=== PATIENT | female | born 1935 | race Caucasian/White ===

== ENCOUNTER 2019-05-08 11:13 | Inpatient (IN) ==
[2019-05-08] MEDS ORDERED: IOPAMIDOL 100 ML BOTTLE IV ONE (11:14)
[2019-05-08] MEDS ORDERED: ONDANSETRON 4 MG/2 ML VIAL IV ONE (11:30)
[2019-05-08] MEDS ORDERED: 0.9 % SODIUM CHLORIDE 500 ML IV ONE (11:30)
[2019-05-08] MEDS ORDERED: HYDROmorphone 2 MG/ML VIAL IV PRN (11:30)
--- NOTE | 2019-05-08 11:35 | Emergency Department Note ---
Abdominal Pain HPI - General Chief Complaint: Abdominal Pain Stated Complaint: Left Lower Abd Pain Time Seen by Provider: 05/08/19 11:18 Source: patient Mode of arrival: ambulatory Limitations: no limitations - History of Present Illness HPI Narrative: 83-year-old [place] [facility] comes in complaining of a 2-week history of weakness and insidious onset left lower quadrant pain. She was initially seen by Sherrie Phillips PA-C over clinic and worked up with x-ray and labs on 05/02/2019. Marked leukocytosis of 18.6 is noted with normal x-ray. Labs were repeated on 05/06/2019-white count had risen to 21 and so she was sent here for reevaluation. She denies fever shortness of breath dysuria. She did have a stool this morning without melena or hematochezia. It was hard small. She took milk of magnesia as per her protocol-she usually has a delayed reaction to this and it has not kicked in yet. No leukemia or cancer history - Related Data Home Medications Medication Instructions Recorded Confirmed Acetaminophen [Tylenol] 1,000 mg PO TIDP PRN 04/15/15 05/02/19 clotrimazole 1 % topical cream 1 applic TOPICAL BID 04/04/17 05/02/19 magnesium hydroxide 400 mg/5 mL 15 ml PO QDAY PRN ml 04/04/17 05/02/19 oral suspension naproxen sodium 220 mg tablet See Rx Instructions PO Q12H 04/04/17 05/02/19 [id number] 250 2 tab PO ONCE PRN tab 05/13/18 05/02/19 mg-250 mg-65 mg tablet Previous Rx's Medication Instructions Recorded [id number]-[id number] 250 2 tab PO QDAY PRN #60 tab 11/14/17 mg-250 mg-65 mg tablet amitriptyline 50 mg tablet 50 mg PO HS #90 tab 11/08/18 levothyroxine 25 mcg tablet 25 mcg PO DAILY #90 tab 11/08/18 pantoprazole 40 mg tablet,delayed 40 mg PO DAILY #90 tab 11/08/18 release potassium chloride ER 10 mEq 10 meq PO DAILY #90 cap 11/08/18 capsule,extended release docusate calcium 240 mg capsule 240 mg PO QHS #90 cap 11/11/18 multivitamin tablet 1 tab PO DAILY #90 tab 11/22/18 oxybutynin chloride 5 mg tablet 5 mg PO BID #180 tab 11/22/18 gabapentin 100 mg capsule 100 mg PO .COMPLEX #150 cap 02/19/19 sumatriptan 50 mg tablet 50 mg PO Q2-4H PRN #160 tab 02/27/19 mirabegron ER 25 mg 25 mg PO QDAY #90 tab 04/07/19 tablet,extended release 24 hr hydrocodone 5 mg-acetaminophen 325 1 tab PO TID #90 tab 04/30/19 mg tablet Allergies Allergy/AdvReac Type Severity Reaction Status Date / Time ampicillin Allergy Severe Swelling Verified 05/02/19 13:41 of the Eye codeine Allergy Severe Unknown Verified 05/02/19 13:41 venom-honey bee Allergy Severe Anaphylaxis Verified 05/02/19 13:41 [bee venom (honey bee)] Penicillins Allergy Intermediate Rash Verified 05/02/19 13:41 metal Allergy Mild Hives Uncoded 05/02/19 13:41 Review of Systems All systems ED: reviewed and negative except as stated. Abdominal Pain PMH - Past Medical History Attestation: Yes: The following information was validated with the patient. [facility] Narrative: Family History (Last Reviewed 05/02/19 @ 13:44 by Sherrie Phillips PA-C) Mother Arthritis Dementia Diabetes Hypertension, essential Stroke Sister Arthritis Family/Other Arthritis Grandmother Hypertension, essential Grandfather Heart attack Medical History (Last Reviewed 05/02/19 @ 13:44 by Sherrie Phillips PA-C) OAB (overactive bladder) (Chronic) Stress incontinence (Chronic) Sciatica (Chronic) Spinal stenosis (Chronic) Constipation (Chronic) Esophageal reflux (Chronic) Hypertension, essential (Chronic) Carpal tunnel syndrome (Chronic) Low back pain (Chronic) Hypothyroidism (Chronic) Numbness of arm (Chronic) Hypokalemia (Chronic) Ataxic gait (Chronic) Tobacco use (Chronic) IBS (irritable bowel syndrome) (Chronic ~1954) Stomach ulcer (Chronic) Pancreatitis (Chronic) Osteoporosis (Chronic) Migraines (Chronic) Joint pain (Chronic) Insomnia (Chronic) Gallbladder problem (Chronic ~05/1958) Depression (Chronic) Muscle pain (Chronic) Arthritis (Chronic) Acid reflux (Chronic) Past Surgical History (Last Reviewed 05/02/19 @ 13:44 by Sherrie Phillips PA-C) H/O colonoscopy (Chronic 2010) H/O shoulder replacement (Chronic) History of cholecystectomy (Chronic) History of right ankle joint replacement (Chronic) Medical history: Reports: GERD, hypertension, hypothyroidism, osteoporosis, othe r (Spinal stenosis with sciatica, stress incontinence). Denies: cancer Surgical history ED: Reports: cholecystectomy, orthopedic, other (Bilateral shoulder replacement and 1 ankle replacement) - Social History Smoking status: Current every day smoker Physical Exam Thin female no acute distress. Very sharp mentally and able to give me a good history and background/review of systems. Normocephalic atraumatic. Conjunctive are clear sclerae white nonicteric. No nasal discharge or congestion. Oropharynx is pink and moist. Posterior pharynx clear. Neck is supple without lymphadenopathy or thyromegaly. Heart is regular rate and rhythm no murmur appreciated. Lungs are clear to auscultation bilaterally without wheezes rales rhonchi or respiratory distress. Abdomen is soft nontender nondistended except for the left lower quadrant which is markedly tender but no peritoneal signs or guarding. No pedal edema. Able to move around in the bed a little bit but overall globally weak. I do not see any focal deficits however; face is symmetrical, no dysarthria. Limitations: no limitations Course Vital Signs Temperature 97.2 F 05/08/19 11:13 Pulse Rate 87 05/08/19 11:13 Respiratory Rate 16 05/08/19 11:13 Blood Pressure 107/54 05/08/19 11:13 Pulse Oximetry (%) 95 05/08/19 11:13 Temperature 97.2 F 05/08/19 11:13 Pulse Rate 89 05/08/19 14:15 Respiratory Rate 26 H 05/08/19 14:37 Blood Pressure 113/67 05/08/19 14:37 Pulse Oximetry (%) 90 05/08/19 14:15 Abdominal Pain - Lab Data Lab results reviewed: Yes I reviewed the patient's lab results. Result diagrams: 05/08/19 11:47 05/08/19 11:46 Lab Results 05/08/19 05/08/19 05/08/19 Range/Units 11:46 11:46 11:47 WBC 18.9 H (4.5-11.0) K/mcL RBC 3.28 L (4.00-5.20) M/mcL Hgb 8.4 L (12.0-15.0) g/dL Hct 26.3 L (36.0-48.0) % POC Hct 26.0 L (36.0-48.0) % MCV 80.2 (80.0-100.0) fL MCH 25.6 L (26.0-34.0) pg MCHC 31.9 (31.0-36.0) g/dL RDW 17.3 H (11.5-14.5) % Plt Count 731 H (140-440) K/mcL MPV 6.8 L (7.4-10.4) fL Gran % 88.9 H (38.0-78.0) % Lymph % (Auto) 5.7 L (15.5-49.0) % Bond % (Auto) 5.1 (1.0-12.0) % Eos % (Auto) 0.1 (0.0-7.0) % Baso % (Auto) 0.2 (0.0-2.0) % Gran # 16.8 H (1.8-8.0) K/mcL Lymph # (Auto) 1.1 L (1.5-4.8) K/mcL Bond # (Auto) 1.0 H (0.1-0.9) K/mcL Eos # (Auto) 0 (0.0-0.7) K/mcL Baso # (Auto) 0 (0.0-0.3) K/mcL VBG Lactic Acid (0.5-2.0) mmol/L POC Sodium 134 (133-145) mmol/L Sodium 135 (133-145) mmol/L POC Potassium 4.6 (3.3-5.1) mmol/L Potassium 4.6 (3.3-5.1) mmol/L POC Chloride 96 (96-108) mmol/L Chloride 95 L (96-108) mmol/L Carbon Dioxide 29 (22-30) mmol/L POC Total CO2 29 (22-30) mmol/L Anion Gap 11.0 (8-16) POC BUN 28 H (8-23) mg/dl BUN 27 H (8-23) mg/dl Creatinine 0.6 (0.6-1.1) mg/dl POC Creatinine 0.7 (0.6-1.1) mg/dl GFR Calculation 85 Glucose 139 H (70-105) mg/dL POC Glucose 136 H (70-105) mg/dL Calcium 9.5 (8.6-10.4) mg/dl POC WB Ioniz Calcium 1.21 (1.16-1.32) mmol/L Total Bilirubin 0.2 (0.0-1.0) mg/dL AST 15 (0-37) U/l ALT 10 (0-40) U/l Alkaline Phosphatase 195 H (39-117) U/L Total Protein 6.7 (5.9-8.4) gm/dL Albumin 2.9 L (3.2-5.2) gm/dL Globulin 3.8 H (2.2-3.7) gm/dL Albumin/Globulin Ratio 0.8 L (1.0-2.3) Amylase 27 L (28-100) U/L Lipase 9 (7-60) U/L Procalcitonin 0.18 (<0.10) ng/mL 05/08/19 Range/Units 11:54 WBC (4.5-11.0) K/mcL RBC (4.00-5.20) M/mcL Hgb (12.0-15.0) g/dL Hct (36.0-48.0) % POC Hct (36.0-48.0) % MCV (80.0-100.0) fL MCH (26.0-34.0) pg MCHC (31.0-36.0) g/dL RDW (11.5-14.5) % Plt Count (140-440) K/mcL MPV (7.4-10.4) fL Gran % (38.0-78.0) % Lymph % (Auto) (15.5-49.0) % Bond % (Auto) (1.0-12.0) % Eos % (Auto) (0.0-7.0) % Baso % (Auto) (0.0-2.0) % Gran # (1.8-8.0) K/mcL Lymph # (Auto) (1.5-4.8) K/mcL Bond # (Auto) (0.1-0.9) K/mcL Eos # (Auto) (0.0-0.7) K/mcL Baso # (Auto) (0.0-0.3) K/mcL VBG Lactic Acid 1.7 (0.5-2.0) mmol/L POC Sodium (133-145) mmol/L Sodium (133-145) mmol/L POC Potassium (3.3-5.1) mmol/L Potassium (3.3-5.1) mmol/L POC Chloride (96-108) mmol/L Chloride (96-108) mmol/L Carbon Dioxide (22-30) mmol/L POC Total CO2 (22-30) mmol/L Anion Gap (8-16) POC BUN (8-23) mg/dl BUN (8-23) mg/dl Creatinine (0.6-1.1) mg/dl POC Creatinine (0.6-1.1) mg/dl GFR Calculation Glucose (70-105) mg/dL POC Glucose (70-105) mg/dL Calcium (8.6-10.4) mg/dl POC WB Ioniz Calcium (1.16-1.32) mmol/L Total Bilirubin (0.0-1.0) mg/dL AST (0-37) U/l ALT (0-40) U/l Alkaline Phosphatase (39-117) U/L Total Protein (5.9-8.4) gm/dL Albumin (3.2-5.2) gm/dL Globulin (2.2-3.7) gm/dL Albumin/Globulin Ratio (1.0-2.3) Amylase (28-100) U/L Lipase (7-60) U/L Procalcitonin (<0.10) ng/mL - Radiology Data Radiology results reviewed: Yes I reviewed the patient's radiology results. CT scan shows sigmoid diverticulitis with 2 small abscesses. Disposition Pt seen by DIRECTOR OF MATERIALS MANAGEMENT/PA only: No Clinical Impression: Diverticulitis Summary: Ordered work-up with laboratory and CT scan. Pain nausea medicine if she needs it. Small amount of IV fluid CT scan showed diverticulitis with 2 abscesses one about 9 cm 1 about 5 cm. Discussed situation with Dr. Sly Cuellar general surgeon and Dr. Birch, hospitalist. Dr. Birch will admit the patient and Dr. Cuellar will consult. Start blood cultures and give a dose of Zosyn. Dr. Cuellar reviewed the CT scan and advised me the patient will likely require surgery for drainage. He will discuss the case with Dr. Birch Disposition: Xfer As Inpt ([facility]) Condition: Fair Referrals: Martin Stokes DO [Primary Care Provider] -
[2019-05-08 11:51] LABS: POC Blood Urea Nitrogen 28 mg/dl (8-23); POC CO2 29 mmol/L (22-30); POC Calcium, Ionized 1.21 mmol/L (1.16-1.32); POC Chloride 96 mmol/L (96-108); POC Creatinine 0.7 mg/dl (0.6-1.1); POC Glucose, Random 136 mg/dL (70-105); POC Potassium 4.6 mmol/L (3.3-5.1); POC Sodium 134 mmol/L (133-145)
[2019-05-08 12:28] LABS: Basophils # (Auto) 0 K/mcL (0.0-0.3); Basophils % (Auto) 0.2 % (0.0-2.0); Eosinophils # (Auto) 0 K/mcL (0.0-0.7); Eosinophils % (Auto) 0.1 % (0.0-7.0); Granulocytes % (Auto) 88.9 % (38.0-78.0); Hematocrit 26.3 % (36.0-48.0); Hemoglobin 8.4 g/dL (12.0-15.0); Lymphocytes # (Auto) 1.1 K/mcL (1.5-4.8); Lymphocytes % (Auto) 5.7 % (15.5-49.0); Mean Cell Volume 80.2 fL (80.0-100.0); Mean Corpuscular HGB Conc 31.9 g/dL (31.0-36.0); Mean Platelet Volume 6.8 fL (7.4-10.4); Monocytes % (Auto) 5.1 % (1.0-12.0); Platelet Count 731 K/mcL (140-440); RBC 3.28 M/mcL (4.00-5.20); Red Cell Distribution Width 17.3 % (11.5-14.5); WBC 18.9 K/mcL (4.5-11.0)
[2019-05-08 12:48] LABS: ALT/SGPT 10 U/l (0-40); AST/SGOT 15 U/l (0-37); Albumin 2.9 gm/dL (3.2-5.2); Albumin/Globulin Ratio 0.8 (1.0-2.3); Alkaline Phosphatase 195 U/L (39-117); Amylase 27 U/L (28-100); Bilirubin,Total 0.2 mg/dL (0.0-1.0); Blood Urea Nitrogen 27 mg/dl (8-23); Calcium 9.5 mg/dl (8.6-10.4); Carbon Dioxide 29 mmol/L (22-30); Chloride 95 mmol/L (96-108); Globulin 3.8 gm/dL (2.2-3.7); Glomerular Filtration Rate 85; Glucose 139 mg/dL (70-105)
--- NOTE | 2019-05-08 14:14 | Cat Scan Report ---
CLINICAL INFORMATION: Left lower quadrant pain and elevated white blood cell count COMPARISON: None. TECHNIQUE: Following enteric contrast, 80 cc of Isovue-370 were injected intravenously, and 60 seconds later, 0.625 mm helical slices were obtained from the mid heart through the subtrochanteric regions. Following reconstruction, 2.5 mm sagittal, coronal and axial reformatted images were processed and reviewed at bone, lung and soft tissue windows. Five minutes later, 0.625 mm helical slices were obtained from the mid heart through the kidneys and viewed at soft tissue windows.The exam was performed using radiation dose optimization techniques including, but not limited to, automated exposure control, adjustment of the mA and/or kV according to patient size and use of iterative reconstruction technique. FINDINGS: Lung bases show tubular bronchiectasis involving segmental and subsegmental bronchi of the lower lobes with moderate patchy mixed interstitial/alveolar infiltrates in both posterior lower lobes. Tiny bilateral pleural effusions noted. The heart is markedly enlarged and very heavy mitral annular calcification and calcification aortic and mitral valve. Abdominal images show mild fatty change of the liver. No focal hepatic lesions. The gallbladder is surgically absent. There is moderate dilatation of the intrahepatic, common hepatic and common bile ducts: The common bile duct is 9 mm. Moderate are noted in the nondependent left hepatic ducts suggesting prior papillotomy. The pancreatic duct is also moderately dilated - 5 mm. 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 The pancreas, both kidneys, adrenal glands, spleen are normal. The aorta is normal in diameter with heavy calcific plaque throughout the aorta. Pelvic images show moderate distention of the urinary bladder. Uterus is not identified and is presumably surgically absent. The stomach, small and large bowel show moderate symmetric dilation compatible with moderate ileus. Small amount of ascites is noted. There are multiple sigmoid diverticuli with wall thickening of sigmoid colon patible with diverticulitis. A 9 cm thick-walled abscess is noted in the mid right perisigmoid region with a 5 cm thick-walled abscess noted in the left mid perisigmoid region. Bone windows show severe degenerative changes in lumbar spine, but no focal osseous lesions IMPRESSION: 1. Moderate sigmoid diverticulitis. 9 cm abscess seen in the right mid perisigmoid region. 5 cm abscess is seen in the left mid perisigmoid region. 2. Moderate ileus with a small amount of ascites 3. Urinary bladder distention 4. Moderate dilatation of the common bile and pancreatic ducts ostensibly related to postcholecystectomy papillary stenosis. Air in the nondependent left hepatic ducts suggests prior papillotomy. 5. Tubular bronchiectasis the subsegmental and segmental bronchi of the lower lobes with patchy airspace either representing fibrosis or infiltrate. 6. Heavy mitral annular calcification. Mild cardiomegaly Interpreted and Authenticated by: Martin Healy 05/08/19
[2019-05-08] MEDS ORDERED: PIPERACILLIN SODIUM/TAZOBACTAM 3.375 GM in DEXTROSE 5% IN WATER 50 ML IV ONE (15:11)
--- NOTE | 2019-05-08 15:38 | Internal Med History&Physical ---
Medical - H&P: [facility] Patient information: Note initiated : 05/08/19 at 3:37 pm Service Date, if different from initiated Date: [] Patient: Melody Dong a 83 y/o F admitted on for Left Lower Abd Pain. Chief Complaint: [] Chief complaint: abdominal pain History of present illness: Ms. Dong is a 83 year old extremely frail looking female presented to the ER with progressive weakness along with lower abdominal pain that started started a few months ago. She continued to ignore her symptoms failing to realize the progression did not seek medical attention. Symptoms were associated with occasional nausea/abdominal distention and intermittent constipation. Pain is described as 4 out of 10 to 8 out of 10 cramping lower abdominal without radiation and without associated blood in stool or change in stool caliber. Patient was recently evaluate by her primary care physician. She was found to have an elevated white count. She was referred to the ER where initial work-up was consistent with sigmoid diverticulitis with perisigmoid abscess measuring 9 and 5 cm. White count 19,000 along with pyuria. Subsequently surgery was consulted. Patient was started on antibiotic after blood cultures were drawn. Hospitalist service was consulted to consider admission while patient will undergo surgical intervention in 24 hours. At the time of evaluation patient is alert and oriented. She was able to endorse history as above. She denies prior similar episodes or abdominal surgery or history of diverticulitis. She denies drenching sweats, shaking chills or fever but endorses fatigue lethargic and loss of appetite. She denies bloody stool. She denies associated weight loss Review of systems A 10 point review of system was performed and is negative except was discussed above Medical - H&P: [facility] Medical history: OAB (overactive bladder) (Chronic) Stress incontinence (Chronic) Sciatica (Chronic) Spinal stenosis (Chronic) Constipation (Chronic) Esophageal reflux (Chronic) Hypertension, essential (Chronic) Carpal tunnel syndrome (Chronic) Low back pain (Chronic) Hypothyroidism (Chronic) Numbness of arm (Chronic) Hypokalemia (Chronic) Ataxic gait (Chronic) Tobacco use (Chronic) IBS (irritable bowel syndrome) (Chronic ~1954) Stomach ulcer (Chronic) Pancreatitis (Chronic) Osteoporosis (Chronic) Migraines (Chronic) Joint pain (Chronic) Insomnia (Chronic) Gallbladder problem (Chronic ~05/1958) Removed Depression (Chronic) Muscle pain (Chronic) Arthritis (Chronic) Acid reflux (Chronic) Surgical History H/O colonoscopy (Chronic 2010) Parent H/O shoulder replacement (Chronic) History of cholecystectomy (Chronic) History of right ankle joint replacement (Chronic) Family History Mother Arthritis Dementia Diabetes Hypertension, essential Stroke Sister Arthritis Family/Other Arthritis Grandparent-maternal Grandmother Hypertension, essential Grandfather Heart attack Maternal Social History marital status: other: Children-1 smoking status: Current every day smoker tobacco type: cigarettes alcohol intake frequency: does not drink substance use type: does not use Medical - H&P: Meds Home Medications Medication Instructions Recorded Confirmed Type Acetaminophen [Tylenol] 500 mg PO TIDP PRN 04/15/15 05/08/19 History clotrimazole 1 % topical cream 1 applic TOPICAL BID 04/04/17 05/08/19 History magnesium hydroxide 400 mg/5 mL 15 ml PO QDAY PRN ml 04/04/17 05/08/19 History oral suspension naproxen sodium 220 mg tablet 1 - 2 tab PO Q12H 04/04/17 05/08/19 History qbacxki-dfeenjqacdwhj-ssodbinx 250 2 tab PO QDAY PRN #60 tab 11/14/17 05/08/19 Rx mg-250 mg-65 mg tablet docusate calcium 240 mg capsule 240 mg PO QHS #90 cap 11/11/18 05/08/19 Rx multivitamin tablet 1 tab PO DAILY #90 tab 11/22/18 05/08/19 Rx sumatriptan 50 mg tablet 50 mg PO Q2-4H PRN #160 tab 02/27/19 05/08/19 Rx hydrocodone 5 mg-acetaminophen 325 1 tab PO TID #90 tab 04/30/19 05/08/19 Rx mg tablet Amitriptyline [Elavil] 50 mg PO HS 05/08/19 05/08/19 History Gabapentin [Neurontin] 100 mg PO DAILY@08,1200 05/08/19 05/08/19 History Gabapentin [Neurontin] 300 mg PO HS 05/08/19 05/08/19 History Levothyroxine [Synthroid] 25 mcg PO ACB 05/08/19 05/08/19 History Mirabegron [Myrbetriq] 25 mg PO DAILY 05/08/19 05/08/19 History Pantoprazole [Protonix] 40 mg PO ACB 05/08/19 05/08/19 History Potassium Chloride 10 meq PO QAMCC 05/08/19 05/08/19 History Allergies Allergy/AdvReac Type Severity Reaction Status Date / Time ampicillin Allergy Severe Swelling Verified 05/08/19 19:57 of the Eye venom-honey bee Allergy Severe Anaphylaxis Verified 05/08/19 19:57 [bee venom (honey bee)] Penicillins Allergy Mild Rash Verified 05/08/19 19:57 metal Allergy Mild Hives Uncoded 05/02/19 13:41 Medical - H&P: Exam - Constitutional Vitals: Temp Pulse Resp BP Pulse Ox 97.2 F 89 26 H 113/67 90 05/08/19 11:13 05/08/19 14:15 05/08/19 14:37 05/08/19 14:37 05/08/19 14:15 General appearance: no acute distress Exam: Alert, anxious but oriented Head normocephalic Oral cavity dry No ear nose discharge S1-S2 regular rhythm systolic murmur grade 3 Chest diminished but clear to auscultation Abdomen tenderness around suprapubic area but no rebound Lower extremity no cyanosis clubbing no joint swelling Skin no suspicious lesion Psych alert cooperative Neuro nonfocal Medical - H&P: Reslt - Labs CBC & Chem 7: 05/09/19 03:40 05/09/19 03:40 Labs: Short CBC 05/08/19 Range/Units 11:47 WBC 18.9 H (4.5-11.0) K/mcL Hgb 8.4 L (12.0-15.0) g/dL Hct 26.3 L (36.0-48.0) % Plt Count 731 H (140-440) K/mcL BMP 05/08/19 11:46 Sodium 135 Potassium 4.6 Chloride 95 L Carbon Dioxide 29 BUN 27 H Creatinine 0.6 Glucose 139 H Calcium 9.5 Liver Function 05/08/19 Range/Units 11:46 Total Bilirubin 0.2 (0.0-1.0) mg/dL AST 15 (0-37) U/l ALT 10 (0-40) U/l Alkaline Phosphatase 195 H (39-117) U/L Albumin 2.9 L (3.2-5.2) gm/dL Medical - H&P: A/P (1) Sepsis Current visit: Yes Status: Acute * Perisigmoid abscess-patient started on antibiotic coverage. Surgery consulted and will undergo operative intervention in 24 hours. * Acute sigmoid diverticulitis-initiate antibiotic coverage. Surgery on board * Severe sepsis secondary to above. White count 19,000. Continue management per guidelines. Keep n.p.o. after midnight. Continue crystalloid/antibiotics including cefepime/Flagyl * Pain management on as needed opioids * Neuropathy continue gabapentin/amitriptyline * History of migraine continue sumatriptan as needed * Hypothyroidism continue thyroxine * Full code * Prophylaxis heparin Plan * Inpatient admission * Surgery consult * Keep n.p.o. after midnight * Crystalloid/pain management * Antibiotic coverage * Prior medical condition management on home medications as above
[2019-05-08] MEDS ORDERED: ceFAZolin 1 GM VIAL IV ONE (15:50)
[2019-05-08] MEDS ORDERED: ONDANSETRON 4 MG/2 ML VIAL IV PRN (18:42)
[2019-05-08] MEDS ORDERED: hydrALAZINE 20 MG/ML VIAL IV PRN (18:42)
[2019-05-08] MEDS ORDERED: POTASSIUM CHLORIDE 20 MEQ PACKET PO PRN (18:42)
[2019-05-08] MEDS ORDERED: PIPERACILLIN SODIUM/TAZOBACTAM 3.375 GM in DEXTROSE 5% IN WATER 50 ML IV SCH (18:42)
[2019-05-08] MEDS ORDERED: ACETAMINOPHEN 325 MG TABLET PO PRN (18:42)
[2019-05-08] MEDS ORDERED: DEXTROSE 31 GM ORAL.SUSP PO PRN (18:42)
[2019-05-08] MEDS ORDERED: MAGNESIUM SULFATE 2 GM/50 ML BAG IV PRN (18:42)
[2019-05-08] MEDS ORDERED: DEXTROSE 50% 50 ML VIAL IV PRN (18:42)
--- NOTE | 2019-05-08 18:47 | General Surgery Consult Note ---
History of Present Illness Patient information: Note initiated : 05/08/19 at 6:44 pm Service Date, if different from initiated Date: [] Patient: Melody Dong 83 y/o F admitted on 05/08/19 for Left Lower Abd Pain. Chief Complaint: [] Consult date: 05/08/19 Reason for consult: abdominal pain Requesting physician: Jhonathan Lynn History of present illness: 83-year-old female with history of left lower quadrant pain and suprapubic pain for many months. She has had a progressive change in bowel habits and worsening constipation. She does use chronic laxatives without improvement. She has noted abdominal distention. She had increasing nausea and more severe pain with progressive weakness. She does have at least a 20 pound weight loss. Patient is seen in the emergency room where she is from to have evidence of inflammation of the sigmoid colon with abscesses with thick wall measuring 9 cm and 5 cm respectively. Patient has white count of 20,000 and has sepsis. She is admitted and will be treated with antibiotics. Baseline labs chest x-ray EKG will be done and she will have laparotomy tomorrow with drainage of the abscess probable sigmoid colon resection with colostomy. This is explained to the patient and she agrees to proceed Review of Systems - Constitutional chills, fatigue, headache(s), malaise, night sweats, weakness, weight loss - EENT Nose, mouth and throat: headache(s), vertigo, no dizziness, no dysphagia - Cardiovascular no chest pain with activity, no dyspnea on exertion, no lightheadedness, no palpatations, no pedal edema, no syncope - Respiratory no cough, no dyspnea, no wheezing, no chest congestion - Gastrointestinal abdominal pain, bloating, constipation, cramping, early satiety, nausea - Genitourinary Genitourinary: nocturia, urinary frequency, urinary hesitancy, urinary incontinence, urinary urgency - Musculoskeletal arthralgias, back pain - Integumentary no new lesions, no pruritus, no rash - Neurological abnormal gait, headache(s), tremor(s), no confusion, no dizziness - Psychiatric no anxiety, no confusion, no depression - Endocrine fatigue, no palpitations - Hematologic/Lymphatic no easy bleeding, no easy bruising, no lymphadenopathy - Allergic/Immunologic no tongue swelling, no throat swelling, no uticaria, no wheezing, no lip swelling Past History Past medical history: History of depression Chronic low back pain GERD Past surgical history: Bilateral shoulder replacement Cholecystectomy Right ankle arthroplasty Past family history: Dementia Hypertension Stroke Coronary artery disease with Past social history: Lives in a care facility Tobacco use daily Denies drug use Denies alcohol use Medications and Allergies Home Medications Medication Instructions Recorded Confirmed Type Acetaminophen [Tylenol] 500 mg PO TIDP PRN 04/15/15 05/08/19 History clotrimazole 1 % topical cream 1 applic TOPICAL BID 04/04/17 05/08/19 History magnesium hydroxide 400 mg/5 mL 15 ml PO QDAY PRN ml 04/04/17 05/08/19 History oral suspension naproxen sodium 220 mg tablet 1 - 2 tab PO Q12HP PRN 04/04/17 05/08/19 History uoobhff-vnmbksnppsxeu-jwjgbxpx 250 2 tab PO QDAY PRN #60 tab 11/14/17 05/08/19 Rx mg-250 mg-65 mg tablet docusate calcium 240 mg capsule 240 mg PO QHS #90 cap 11/11/18 05/08/19 Rx multivitamin tablet 1 tab PO DAILY #90 tab 11/22/18 05/08/19 Rx sumatriptan 50 mg tablet 50 mg PO Q2-4H PRN #160 tab 02/27/19 05/08/19 Rx hydrocodone 5 mg-acetaminophen 325 1 tab PO TID #90 tab 04/30/19 05/08/19 Rx mg tablet Amitriptyline [Elavil] 50 mg PO HS 05/08/19 05/08/19 History Gabapentin [Neurontin] 100 mg PO DAILY@08,1200 05/08/19 05/08/19 History Gabapentin [Neurontin] 300 mg PO HS 05/08/19 05/08/19 History Levothyroxine [Synthroid] 25 mcg PO ACB 05/08/19 05/08/19 History Mirabegron [Myrbetriq] 25 mg PO DAILY 05/08/19 05/08/19 History Pantoprazole [Protonix] 40 mg PO ACB 05/08/19 05/08/19 History Potassium Chloride 10 meq PO QAMCC 05/08/19 05/08/19 History Allergies Allergy/AdvReac Type Severity Reaction Status Date / Time ampicillin Allergy Severe Swelling Verified 05/02/19 13:41 of the Eye codeine Allergy Severe Unknown Verified 05/02/19 13:41 venom-honey bee Allergy Severe Anaphylaxis Verified 05/02/19 13:41 [bee venom (honey bee)] Penicillins Allergy Mild Rash Verified 05/08/19 16:41 metal Allergy Mild Hives Uncoded 05/02/19 13:41 Exam Temp Pulse Resp BP Pulse Ox 97.2 F 86 19 126/62 89 L 05/08/19 18:31 05/08/19 18:31 05/08/19 18:31 05/08/19 18:31 05/08/19 18:31 - General physical appearance well developed, well nourished, moderate distress, severe pain, cachectic, chronically ill - Eyes PERRL, normal ocular movement. negative: icteric - ENT normal pinna, normal nares, normal mucosa, no hearing loss, no congestion - Head Head exam IM: Present: atraumatic, normal inspection, normocephalic - Neck no masses, no bruits, trachea midline, no lymphadenopathy, no venous distension - Cardiovascular Cardiovascular exam IM: Present: normal rate and rhythm, +S1, +S2, systolic murmur. Absent: JVD, tachycardia Intensity IM: 4/6 (strong for over 6 systolic ejection murmur across precordium) - Respiratory normal expansion, normal respiratory effort, clear to auscultation - Abdomen Abdomen: Present: soft, tender (diffusely tender in the hypogastric and suprapubic area; no palpable mass; guarding with rebound), bowel sounds, distended Hernia: Present: none - Genitourinary Present: normal external genitalia - Integumentary Present: no rash, no growths, no abnormal pigmentation - Neurologic Present: normal coordination, normal sensation, other ( intention tremor) - Musculoskeletal Present: other ( gait and stance not evaluated) - Psychiatric Present: oriented to time, oriented to person, oriented to place, speech is normal, memory intact Results - Labs 05/08/19 11:47 05/08/19 11:46 Abnormal lab results 05/08/19 05/08/19 Range/Units 11:46 11:47 WBC 18.9 H (4.5-11.0) K/mcL RBC 3.28 L (4.00-5.20) M/mcL Hgb 8.4 L (12.0-15.0) g/dL Hct 26.3 L (36.0-48.0) % POC Hct 26.0 L (36.0-48.0) % MCH 25.6 L (26.0-34.0) pg RDW 17.3 H (11.5-14.5) % Plt Count 731 H (140-440) K/mcL MPV 6.8 L (7.4-10.4) fL Gran % 88.9 H (38.0-78.0) % Lymph % (Auto) 5.7 L (15.5-49.0) % Gran # 16.8 H (1.8-8.0) K/mcL Lymph # (Auto) 1.1 L (1.5-4.8) K/mcL [place] # (Auto) 1.0 H (0.1-0.9) K/mcL Chloride 95 L (96-108) mmol/L POC BUN 28 H (8-23) mg/dl BUN 27 H (8-23) mg/dl Glucose 139 H (70-105) mg/dL POC Glucose 136 H (70-105) mg/dL Alkaline Phosphatase 195 H (39-117) U/L Albumin 2.9 L (3.2-5.2) gm/dL Globulin 3.8 H (2.2-3.7) gm/dL Albumin/Globulin Ratio 0.8 L (1.0-2.3) Amylase 27 L (28-100) U/L Diabetes panel 05/08/19 Range/Units 11:46 Sodium 135 (133-145) mmol/L Potassium 4.6 (3.3-5.1) mmol/L Chloride 95 L (96-108) mmol/L Carbon Dioxide 29 (22-30) mmol/L BUN 27 H (8-23) mg/dl Creatinine 0.6 (0.6-1.1) mg/dl Glucose 139 H (70-105) mg/dL Calcium 9.5 (8.6-10.4) mg/dl AST 15 (0-37) U/l ALT 10 (0-40) U/l Alkaline Phosphatase 195 H (39-117) U/L Total Protein 6.7 (5.9-8.4) gm/dL Albumin 2.9 L (3.2-5.2) gm/dL Calcium panel 05/08/19 Range/Units 11:46 Calcium 9.5 (8.6-10.4) mg/dl Albumin 2.9 L (3.2-5.2) gm/dL Pituitary panel 05/08/19 Range/Units 11:46 Sodium 135 (133-145) mmol/L Potassium 4.6 (3.3-5.1) mmol/L Chloride 95 L (96-108) mmol/L Carbon Dioxide 29 (22-30) mmol/L BUN 27 H (8-23) mg/dl Creatinine 0.6 (0.6-1.1) mg/dl Glucose 139 H (70-105) mg/dL Calcium 9.5 (8.6-10.4) mg/dl Adrenal panel 05/08/19 Range/Units 11:46 Sodium 135 (133-145) mmol/L Potassium 4.6 (3.3-5.1) mmol/L Chloride 95 L (96-108) mmol/L Carbon Dioxide 29 (22-30) mmol/L BUN 27 H (8-23) mg/dl Creatinine 0.6 (0.6-1.1) mg/dl Glucose 139 H (70-105) mg/dL Calcium 9.5 (8.6-10.4) mg/dl Total Bilirubin 0.2 (0.0-1.0) mg/dL AST 15 (0-37) U/l ALT 10 (0-40) U/l Alkaline Phosphatase 195 H (39-117) U/L Total Protein 6.7 (5.9-8.4) gm/dL Albumin 2.9 L (3.2-5.2) gm/dL All other labs normal. Assessment and Plan (1) Acute abscess of female pelvis Patient has been started on antibiotics and has been counseled for laparotomy with probable segmental colectomy and drainage of pelvic abscess to be performed in the morning. She is advised that she will have a temporary colostomy placed. Status: Acute (2) Acute diverticulitis of intestine Status: Acute (3) Sepsis Status: Acute Qualifiers: Sepsis acute organ dysfunction status: with acute organ dysfunction Severe sepsis shock status: without septic shock
[2019-05-08] MEDS ORDERED: 0.9 % SODIUM CHLORIDE 250 ML IV SCH (19:00)
[2019-05-08] MEDS: 0.9 % SODIUM CHLORIDE 1,000 ML IV SCH (19:18)
[2019-05-08] MEDS: CEFEPIME 2 GM VIAL IV SCH (19:18)
--- NOTE | 2019-05-08 19:35 | XRay Report ---
CLINICAL INFORMATION: preop evaluation COMPARISON: None. FINDINGS: The heart is mildly enlarged. Mediastinum and pulmonary vessels are normal. Mild COPD changes appreciated no infiltrates or effusions IMPRESSION: Mild cardiomegaly and COPD changes. No acute disease Interpreted and Authenticated by: Martin Healy 05/08/19
[2019-05-08] MEDS: metroNIDAZOLE 500 MG/100 ML BAG IV SCH ×2 (20:08→23:55)
[2019-05-08] MEDS: 0.9 % SODIUM CHLORIDE 10 ML SYRINGE IV SCH (20:15)
[2019-05-08] MEDS ORDERED: HYDROmorphone 2 MG/ML VIAL ONE (20:19)
[2019-05-08] MEDS: HYDROmorphone 2 MG/ML VIAL IV PRN (20:20)
[2019-05-08] MEDS: INSULIN LISPRO 1 UNIT/0.01 ML UNIT SQ SCH ×2 (20:28→21:53)
[2019-05-08] MEDS ORDERED: HEPARIN 5,000 UNIT/ML VIAL SQ SCH (21:00)
[2019-05-08 22:37] LABS: Prothrombin Time 13.7 sec (11.9-14.5)
[2019-05-09 01:34] LABS: Appearance,Urine TURBID; Bacteria,Urine 0 /hpf (0); Bilirubin,Urine NEG (NEG); Color,Urine YELLOW; Culture Indicated,Urine YES; Glucose,Urine (UA) NEGATIVE (NEG); Ketones,Urine NEG (NEG); Leukocyte Esterase,Urine 250 /uL (NEG); Nitrate,Urine NEG (NEG); Protein,Urine >=500 mg/dL (NEG); Urine Blood >=1.0 mg/dL (<0.03); Urine RBC > 182 /hpf (0-1); Urine Squamous Epithelial Cell 0 /hpf (0-4); Urine WBC > 182 /hpf (0-4); Urobilinogen,Urine NEG (NEG)
[2019-05-09] MEDS: HYDROmorphone 2 MG/ML VIAL IV PRN ×5 (01:50→22:13)
[2019-05-09] MEDS: 0.9 % SODIUM CHLORIDE 10 ML SYRINGE IV SCH ×3 (04:59→22:14)
[2019-05-09] MEDS: metroNIDAZOLE 500 MG/100 ML BAG IV SCH ×2 (05:26→13:51)
[2019-05-09 05:50] LABS: Hematocrit 23.1 % (36.0-48.0); Hemoglobin 7.3 g/dL (12.0-15.0); Mean Cell Volume 81.2 fL (80.0-100.0); Mean Corpuscular HGB Conc 31.6 g/dL (31.0-36.0); Mean Platelet Volume 6.9 fL (7.4-10.4); Platelet Count 679 K/mcL (140-440); RBC 2.84 M/mcL (4.00-5.20); Red Cell Distribution Width 17.5 % (11.5-14.5); WBC 16.2 K/mcL (4.5-11.0)
[2019-05-09 06:08] LABS: ALT/SGPT 6 U/l (0-40); AST/SGOT 15 U/l (0-37); Albumin 2.4 gm/dL (3.2-5.2); Albumin/Globulin Ratio 0.7 (1.0-2.3); Alkaline Phosphatase 165 U/L (39-117); Bilirubin,Direct < 0.2 mg/dL (0.0-0.3); Bilirubin,Total 0.2 mg/dL (0.0-1.0); Blood Urea Nitrogen 17 mg/dl (8-23); Calcium 8.7 mg/dl (8.6-10.4); Carbon Dioxide 25 mmol/L (22-30); Chloride 98 mmol/L (96-108); Globulin 3.3 gm/dL (2.2-3.7); Glomerular Filtration Rate 91; Glucose 77 mg/dL (70-105); Lactate Dehydrogenase 135 U/L (94-250); Phosphorous 3.1 mg/dL (2.7-4.5); Triglycerides 103 mg/dl (<150); Uric Acid 3.7 mg/dL (2.5-8.0)
[2019-05-09] MEDS ORDERED: ESOMEPRAZOLE 40 MG VIAL IV SCH (07:30)
[2019-05-09] MEDS ORDERED: 0.9 % SODIUM CHLORIDE 250 ML IV SCH ×2 (07:30→19:52)
[2019-05-09] MEDS: INSULIN LISPRO 1 UNIT/0.01 ML UNIT SQ SCH ×3 (08:11→17:58)
[2019-05-09] MEDS: 0.9 % SODIUM CHLORIDE 1,000 ML IV SCH ×3 (08:19→20:01)
[2019-05-09 08:38] LABS: Anisocytosis 1+ (NONE SEEN); Band Neutrophils % 15 % (0-10); Hypochromasia 1+ (NONE SEEN); Lymphocytes % 12 % (15-49); Monocytes % (Manual) 8 % (1-12); Platelet Estimate INCREASED (NORMAL); Polychromasia 1+ (NONE SEEN); RBC Morphology ABNORM (NORMAL); Segmented Neutrophils % 65 % (38-78)
[2019-05-09] MEDS: CEFEPIME 2 GM VIAL IV SCH (09:03)
[2019-05-09] MEDS ORDERED: ACETAMINOPHEN 600 MG/60 ML BOTTLE IV PRN (09:21)
--- NOTE | 2019-05-09 09:45 | Internal Med Progress Note ---
Medical - PN: Subj Patient information: Note initiated : 05/09/19 at 9:41 am Service Date, if different from initiated Date: [] Patient: Melody Dong 83 y/o F admitted on 05/08/19 for Left Lower Abd Pain. Chief Complaint: [] Interval history: Ms. Dong is a 83 year old extremely frail looking female presented to the ER with progressive weakness along with lower abdominal pain that started started a few months ago. She continued to ignore her symptoms failing to realize the progression did not seek medical attention. Symptoms were associated with occasional nausea/abdominal distention and intermittent constipation. Pain is described as 4 out of 10 to 8 out of 10 cramping lower abdominal without radiat ion and without associated blood in stool or change in stool caliber. Patient was recently evaluate by her primary care physician. She was found to have an elevated white count. She was referred to the ER where initial work-up was consistent with sigmoid diverticulitis with perisigmoid abscess measuring 9 and 5 cm. White count 19,000 along with pyuria. Subsequently surgery was consulted. Patient was started on antibiotic after blood cultures were drawn. Hospitalist service was consulted to consider admission while patient will undergo surgical intervention in 24 hours. At the time of evaluation patient is alert and oriented. She was able to endorse history as above. She denies prior similar episodes or abdominal surgery or history of diverticulitis. She denies drenching sweats, shaking chills or fever but endorses fatigue lethargic and loss of appetite. She denies bloody stool. She denies associated weight loss 05/09-patient currently n.p.o. No overnight events. White count downtrending. On antibiotic coverage. Due for surgery at noon. No family at bedside. No other concerns expressed to nursing staff. - Constitutional Vitals: Vital Signs Temp Pulse Resp BP Pulse Ox 99.4 F H 100 H 18 101/52 95 05/09/19 03:24 05/09/19 00:26 05/09/19 03:24 05/09/19 03:24 05/09/19 03:24 Period Temp Pulse Resp BP Sys/Nunez Pulse Ox Last 24 Hr 97.2 F-99.4 F 68-112 12-26 87-126/50-75 79-100 Intake and Output 05/08/19 05/09/19 05/09/19 21:59 05:59 13:59 Intake Total 100 1100 100 Output Total 150 380 100 Balance -50 720 0 Weight 88 lb 6 oz Intake & Output: Intake & Output 05/08/19 05/09/19 05/09/19 21:59 05:59 13:59 Intake Total 100 1100 100 Output Total 150 380 100 Balance -50 720 0 Weight 88 lb 6 oz Intake: IV 100 1100 100 Sodium Chloride 0.9% 1,000 ml @ 1000 100 mls/hr IV .Q10H [facility] Rx#: [id number] Oral 0 Output: Void Amount 380 100 Urine/Stool Mix 150 Other: Urine Appearance Cloudy Cloudy Sediment Sediment Urine Color Yellow Brown Yellow Brown Stool Consistency Liquid General appearance: no acute distress Exam: Alert and oriented Nonlabored breathing No telemetry events Anxiety Tender lower abdomen Medical - PN: Obj Da - Labs CBC & Chem 7: 05/09/19 03:40 05/09/19 03:40 Labs: Abnormal Lab Results 05/09/19 05/09/19 05/09/19 03:40 03:40 00:25 WBC 16.2 H RBC 2.84 L Hgb 7.3 L Hct 23.1 L POC Hct MCH 25.7 L RDW 17.5 H Plt Count 679 H MPV 6.9 L Gran % Lymph % (Auto) Gran # Lymph # (Auto) [place] # (Auto) Band Neutrophils % 15 H Lymphocytes % 12 L RBC Morphology Abnorm A Polychromasia 1+ A Hypochromasia 1+ A Anisocytosis 1+ A Chloride POC BUN BUN Creatinine 0.5 L Glucose POC Glucose GGT 57 H Alkaline Phosphatase 165 H Total Protein 5.7 L Albumin 2.4 L Globulin Albumin/Globulin Ratio 0.7 L Amylase Urine Protein >=500 A Urine Occult Blood >=1.0 A Ur Leukocyte Esterase 250 A Urine RBC > 182 H Urine WBC > 182 H 05/08/19 05/08/19 11:47 11:46 WBC 18.9 H RBC 3.28 L Hgb 8.4 L Hct 26.3 L POC Hct 26.0 L MCH 25.6 L RDW 17.3 H Plt Count 731 H MPV 6.8 L Gran % 88.9 H Lymph % (Auto) 5.7 L Gran # 16.8 H Lymph # (Auto) 1.1 L [place] # (Auto) 1.0 H Band Neutrophils % Lymphocytes % RBC Morphology Polychromasia Hypochromasia Anisocytosis Chloride 95 L POC BUN 28 H BUN 27 H Creatinine Glucose 139 H POC Glucose 136 H GGT Alkaline Phosphatase 195 H Total Protein Albumin 2.9 L Globulin 3.8 H Albumin/Globulin Ratio 0.8 L Amylase 27 L Urine Protein Urine Occult Blood Ur Leukocyte Esterase Urine RBC Urine WBC Meds: Medications Acetaminophen (Tylenol) 650 mg PO Q4-6HP PRN PRN Reason: PAIN/FEVER > 101 Cefepime HCl (Maxipime) 2 gm IV DAILY [facility] Last Admin: 05/09/19 09:03 Dose: 2 gm Documented by: Dextrose (Dextrose 50%) 0 ml IV UD PRN PRN Reason: Hypoglycemia Diagnostic Test (Pha) (Accu-Chek) 1 each FS [facility] Last Admin: 05/09/19 08:04 Dose: 1 each Documented by: Glucose (Insta-Glucose) 15 gm PO PRN PRN PRN Reason: Hypoglycemia Hydralazine HCl (Apresoline) 10 mg IV Q4-6HP PRN PRN Reason: Hypertension Hydromorphone HCl (Dilaudid) 0 mg IV Q4HP PRN PRN Reason: PAIN LEVEL > 6 Last Admin: 05/09/19 09:26 Dose: 0.5 mg Documented by: Metronidazole (Flagyl) 500 mg in 100 mls @ 100 mls/hr IV Q8H [facility] Last Infusion: 05/09/19 06:30 Dose: Infused Documented by: Magnesium Sulfate (Magnesium Sulfate) 2 gm in 50 mls @ 50 mls/hr IV UD PRN PRN Reason: MG = or < 1.7 Sodium Chloride (Sodium Chloride 0.9%) 1,000 mls @ 100 mls/hr IV .Q10H [facility] Last Admin: 05/09/19 08:19 Dose: 100 mls/hr Documented by: Sodium Chloride (Sodium Chloride 0.9%) 250 mls @ 20 mls/hr IV .[id number] [facility] Stop: 05/09/19 19:59 Last Admin: 05/09/19 09:25 Dose: 20 mls/hr Documented by: Acetaminophen (Ofirmev) 600 mg in 60 mls @ 120 mls/hr IV Q6HP PRN PRN Reason: Pain Insulin Human Lispro (Humalog) 0 unit SQ [facility]; Protocol Last Admin: 05/09/19 08:11 Dose: Not Given Documented by: Ondansetron HCl (Zofran) 4 mg IV Q4-6HP PRN PRN Reason: Nausea And Vomiting Potassium Chloride (Klor-Con) 40 meq PO DAILYP PRN PRN Reason: K+ < 3.5 Sodium Chloride (Saline Flush) 10 ml IV Q8 [facility] Last Admin: 05/09/19 04:59 Dose: Not Given Documented by: Medical - PN: A/P - Time Spent With Patient Total time spent is greater than 50% in coordination of care (as documented) at patient's floor/unit and/or counseling patient: 25 - 35 minutes (1) Sepsis Status: Acute Assessment and plan: * Perisigmoid abscess-on antibiotic coverage. Await surgical intervention. * Acute sigmoid diverticulitis-continue antibiotic coverage. Surgery on board. N.p.o. * Severe sepsis secondary to above. White count improving. Stable hemodynamics.. Continue management per guidelines. * Pain management on as needed opioids * Neuropathy -hold until able to take p.o. gabapentin/amitriptyline * History of migraine no acute flare * Hypothyroidism old thyroxine * Full code * Prophylaxis heparin Plan * Review post op * Cefepime/Flagyl * Crystalloid/pain management * Prior medical condition management -continue to hold home meds until able to take p.o. postoperative Current Visit: Yes Medical - PN: Qual - VTE Deep Vein Thrombosis/Pulmonary Embolism Present on Admission: No
[2019-05-09] MEDS ORDERED: MAGNESIUM SULFATE 2 GM/50 ML BAG IV ONE ×2 (14:00→15:20)
--- NOTE | 2019-05-09 14:13 | Internal Med Progress Note ---
Medical - PN: Subj Patient information: Note initiated : 05/09/19 at 2:07 pm Service Date, if different from initiated Date: [] Patient: Mleody Dong 83 y/o F admitted on 05/08/19 for Left Lower Abd Pain. Chief Complaint: [] Interval history: Ms. Dong is a 83 year old extremely frail looking female presented to the ER with progressive weakness along with lower abdominal pain that started started a few months ago. She continued to ignore her symptoms failing to realize the progression did not seek medical attention. Symptoms were associated with occasional nausea/abdominal distention and intermittent constipation. Pain is described as 4 out of 10 to 8 out of 10 cramping lower abdominal without radiat ion and without associated blood in stool or change in stool caliber. Patient was recently evaluate by her primary care physician. She was found to have an elevated white count. She was referred to the ER where initial work-up was consistent with sigmoid diverticulitis with perisigmoid abscess measuring 9 and 5 cm. White count 19,000 along with pyuria. Subsequently surgery was consulted. Patient was started on antibiotic after blood cultures were drawn. Hospitalist service was consulted to consider admission while patient will undergo surgical intervention in 24 hours. At the time of evaluation patient is alert and oriented. She was able to endorse history as above. She denies prior similar episodes or abdominal surgery or history of diverticulitis. She denies drenching sweats, shaking chills or fever but endorses fatigue lethargic and loss of appetite. She denies bloody stool. She denies associated weight loss 05/09-patient currently n.p.o. No overnight events. White count downtrending. On antibiotic coverage. Due for surgery at noon. No family at bedside. No other concerns expressed to nursing staff. 05/10 - Constitutional Vitals: Vital Signs Temp Pulse Resp BP Pulse Ox 98.2 F 81 12 108/53 91 05/09/19 11:25 05/09/19 11:25 05/09/19 11:25 05/09/19 11:25 05/09/19 11:25 Period Temp Pulse Resp BP Sys/Nunez Pulse Ox Last 24 Hr 97.2 F-99.4 F 68-115 12-26 87-126/50-75 79-100 Intake and Output 05/09/19 05/09/19 05/09/19 05:59 13:59 21:59 Intake Total 1100 512 Output Total 380 450 Balance 720 62 Weight 40.086 kg Patient Weight 05/10/19 05:59 Weight 40.086 kg Intake & Output: Intake & Output 05/09/19 05/09/19 05/09/19 05:59 13:59 21:59 Intake Total 1100 512 Output Total 380 450 Balance 720 62 Weight 40.086 kg Intake: IV 1100 218 Sodium Chloride 0.9% 1,000 ml @ 1000 118 100 mls/hr IV .Q10H [facility] Rx#: [id number] Oral 0 Blood Product 294 Output: Void Amount 380 450 Other: Urine Appearance Cloudy Cloudy Sediment Sediment Urine Color Yellow Brown Yellow Brown Exam: General: Alert, Awake, No acute Distress Eyes/N/T: EOMI, Head/Neck: neck supple, CV: RRR, No murmurs, Pulm: Clear b/l, no wheezing/rhonchi/rales Abd: soft, TTP Lower Abd, +BS x4 Ext: no clubbing/cyanosis/edema Neuro: Alert, no focal deficits, moves all extremities, Skin: warm/dry Medical - PN: Obj Da - Labs CBC & Chem 7: 05/09/19 03:40 05/09/19 03:40 Labs: Abnormal Lab Results 05/09/19 05/09/19 05/09/19 03:40 03:40 00:25 WBC 16.2 H RBC 2.84 L Hgb 7.3 L Hct 23.1 L POC Hct MCH 25.7 L RDW 17.5 H Plt Count 679 H MPV 6.9 L Gran % Lymph % (Auto) Gran # Lymph # (Auto) [place] # (Auto) Band Neutrophils % 15 H Lymphocytes % 12 L RBC Morphology Abnorm A Polychromasia 1+ A Hypochromasia 1+ A Anisocytosis 1+ A Chloride POC BUN BUN Creatinine 0.5 L Glucose POC Glucose GGT 57 H Alkaline Phosphatase 165 H Total Protein 5.7 L Albumin 2.4 L Globulin Albumin/Globulin Ratio 0.7 L Amylase Urine Protein >=500 A Urine Occult Blood >=1.0 A Ur Leukocyte Esterase 250 A Urine RBC > 182 H Urine WBC > 182 H 05/08/19 05/08/19 11:47 11:46 WBC 18.9 H RBC 3.28 L Hgb 8.4 L Hct 26.3 L POC Hct 26.0 L MCH 25.6 L RDW 17.3 H Plt Count 731 H MPV 6.8 L Gran % 88.9 H Lymph % (Auto) 5.7 L Gran # 16.8 H Lymph # (Auto) 1.1 L [place] # (Auto) 1.0 H Band Neutrophils % Lymphocytes % RBC Morphology Polychromasia Hypochromasia Anisocytosis Chloride 95 L POC BUN 28 H BUN 27 H Creatinine Glucose 139 H POC Glucose 136 H GGT Alkaline Phosphatase 195 H Total Protein Albumin 2.9 L Globulin 3.8 H Albumin/Globulin Ratio 0.8 L Amylase 27 L Urine Protein Urine Occult Blood Ur Leukocyte Esterase Urine RBC Urine WBC Meds: Medications Acetaminophen (Tylenol) 650 mg PO Q4-6HP PRN PRN Reason: PAIN/FEVER > 101 Cefepime HCl (Maxipime) 2 gm IV DAILY [facility] Last Admin: 05/09/19 09:03 Dose: 2 gm Documented by: Dextrose (Dextrose 50%) 0 ml IV UD PRN PRN Reason: Hypoglycemia Diagnostic Test (Pha) (Accu-Chek) 1 each FS [facility]S [facility] Last Admin: 05/09/19 12:01 Dose: 1 each Documented by: Glucose (Insta-Glucose) 15 gm PO PRN PRN PRN Reason: Hypoglycemia Hydralazine HCl (Apresoline) 10 mg IV Q4-6HP PRN PRN Reason: Hypertension Hydromorphone HCl (Dilaudid) 0 mg IV Q4HP PRN PRN Reason: PAIN LEVEL > 6 Last Admin: 05/09/19 13:52 Dose: 0.5 mg Documented by: Metronidazole (Flagyl) 500 mg in 100 mls @ 100 mls/hr IV Q8H [facility] Last Admin: 05/09/19 13:51 Dose: 100 mls/hr Documented by: Magnesium Sulfate (Magnesium Sulfate) 2 gm in 50 mls @ 50 mls/hr IV UD PRN PRN Reason: MG = or < 1.7 Sodium Chloride (Sodium Chloride 0.9%) 1,000 mls @ 100 mls/hr IV .Q10H [facility] Last Admin: 05/09/19 13:52 Dose: 100 mls/hr Documented by: Sodium Chloride (Sodium Chloride 0.9%) 250 mls @ 20 mls/hr IV .[id number] [facility] Stop: 05/09/19 19:59 Last Admin: 05/09/19 09:25 Dose: 20 mls/hr Documented by: Acetaminophen (Ofirmev) 600 mg in 60 mls @ 120 mls/hr IV Q6HP PRN PRN Reason: Pain Magnesium Sulfate (Magnesium Sulfate) 2 gm in 50 mls @ 25 mls/hr IV ONCE ONE Stop: 05/09/19 15:59 Insulin Human Lispro (Humalog) 0 unit SQ [facility]; Protocol Last Admin: 05/09/19 12:01 Dose: Not Given Documented by: Ondansetron HCl (Zofran) 4 mg IV Q4-6HP PRN PRN Reason: Nausea And Vomiting Potassium Chloride (Klor-Con) 40 meq PO DAILYP PRN PRN Reason: K+ < 3.5 Sodium Chloride (Saline Flush) 10 ml IV Q8 [facility] Last Admin: 05/09/19 14:00 Dose: 10 ml Documented by: Medical - PN: A/P - Time Spent With Patient Total time spent is greater than 50% in coordination of care (as documented) at patient's floor/unit and/or counseling patient: - Narrative A/P Narrative: A: *Perisigmoid abscess: *Acute sigmoid diverticulitis w/above complication: *UTI: *Severe sepsis: 2/2 above -WBC improving, Stable hemodynamics *Neuropathy: home gabapentin/amitriptyline *h/o migraine: no acute flare *Hypothyroidism: onthyroxine *GERD Plan: -Dr. Cuellar for surgical I&D -diet advancement per Surgery -cont cefepime/flagyl -pain control -IVF's -pt/ot -ppx: heparin/ppi full code Medical - PN: Qual - VTE Deep Vein Thrombosis/Pulmonary Embolism Present on Admission: No
[2019-05-09] MEDS ORDERED: PHENYLEPHRINE 10 MG/ML VIAL IV ONE (15:20)
[2019-05-09] MEDS ORDERED: fentaNYL 250 MCG/5 ML VIAL IV ONE (15:20)
[2019-05-09] MEDS ORDERED: PROPOFOL 200 MG/20 ML VIAL IV ONE (15:20)
[2019-05-09] MEDS ORDERED: ROPIVACAINE HCL/PF 30 ML VIAL IJ ONE (15:20)
[2019-05-09] MEDS ORDERED: DEXAMETHASONE 10 MG/ML VIAL IV ONE (15:20)
[2019-05-09] MEDS ORDERED: ROCURONIUM 10 MG/ML ML IV ONE (15:20)
[2019-05-09] MEDS ORDERED: KETAMINE 100 MG/ML ML IV ONE (15:20)
[2019-05-09] MEDS ORDERED: MIDAZOLAM 2 MG/2 ML VIAL IV ONE (15:20)
[2019-05-09] MEDS ORDERED: GLYCOPYRROLATE 0.2 MG/ML VIAL IV ONE (15:20)
[2019-05-09] MEDS ORDERED: SUGAMMADEX SODIUM 200 MG/2 ML VIAL IV ONE (15:20)
[2019-05-09] MEDS ORDERED: ALBUMIN HUMAN 25 GM/100 ML BAG IV ONE (15:20)
[2019-05-09] MEDS ORDERED: ONDANSETRON 4 MG/2 ML VIAL IV ONE (15:20)
[2019-05-09] MEDS ORDERED: LIDOCAINE HCL/PF 100 MG/5 ML SYRINGE IV ONE (15:20)
[2019-05-09] MEDS ORDERED: BENZOCAINE/MENTHOL 1 LOZENGE PO PRN (18:08)
[2019-05-09] MEDS ORDERED: METHOCARBAMOL 1,000 MG/10 ML VIAL IV PRN (18:08)
[2019-05-09] MEDS ORDERED: NALOXONE HCL 0.4 MG/ML VIAL IV PRN (18:08)
[2019-05-09] MEDS ORDERED: ACETAMINOPHEN 1,000 MG/100 ML BOTTLE IV ONE (18:08)
[2019-05-09] MEDS ORDERED: FLUMAZENIL 0.1 MG/ML ML IV PRN (18:08)
[2019-05-09] MEDS ORDERED: LACTATED RINGERS 250 ML IV PRN (18:08)
[2019-05-09] MEDS ORDERED: fentaNYL 100 MCG/2 ML VIAL IV PRN (18:08)
[2019-05-09] MEDS ORDERED: IPRATROPIUM/ALBUTEROL 3 ML AMPUL.NEB NEB PRN (18:08)
[2019-05-09] MEDS ORDERED: LACTATED RINGERS 1,000 ML IV SCH (18:15)
--- NOTE | 2019-05-09 18:33 | Brief Operative Note ---
Date of procedure: 05/09/19 Pre-op diagnosis: diverticulitis with pelvic abscesses Post-op diagnosis: other (uterine abscess; left ovarian mass with necrosis and abscess ;inflammation of sigmoid colon with possible infiltration from left ovarian process) Procedure: segmental left colectomy with colostomy and hartmans pouch total abdominal hysterectomy with bilateral salpingo-oophorectomy drainage of pelvic abscess Grafts/Implants: No (sumit drain x1) Anesthesia: GETA Findings: enlarged boggy inflamed uterus filled with pus enlarged indurated mass of left ovary and tube with infiltration of sigmoid colo n Complications: none Surgeon: Shawnee Cuellar Estimated blood loss (cc): 500 Specimens Removed/Pathology: other (uterus ,tubes and ovaries ; sigmoid colon; cultures of abscess cavity) Condition: stable Disposition: PACU
--- NOTE | 2019-05-09 19:23 | XRay Report ---
CLINICAL INFORMATION: Right IJ central line placement COMPARISON: 05/08/2019 FINDINGS: Right IJ central line tip overlies the SVC right atrial junction. No complication from line placement. Moderate cardiomegaly unchanged. Mediastinum is unremarkable. Pulmonary vessels are mildly distended and there is moderate interstitial edema throughout both lungs. Moderate region of consolidated atelectasis involving the left base. NG tube in stable satisfactory position IMPRESSION: Mild CHF or volume overload Small region of dense consolidation atelectasis left lower lobe Right IJ central line in satisfactory position. Interpreted and Authenticated by: Martin Healy 05/09/19
--- NOTE | 2019-05-09 19:23 | XRay Report ---
CLINICAL INFORMATION: nasogastric tube placement COMPARISON: None. FINDINGS: NG tube is coiled in the gastric body. Stool gas pattern unremarkable. No free air. 17 mm calcification overlies the right upper quadrant previously IMPRESSION: No acute disease. NG tube in gastric body Interpreted and Authenticated by: Martin Healy 05/09/19
[2019-05-09] MEDS ORDERED: DEXTROSE 31 GM ORAL.SUSP PO PRN (19:52)
[2019-05-09] MEDS ORDERED: HYDROmorphone 2 MG/ML VIAL IV PRN (19:52)
[2019-05-09] MEDS ORDERED: DEXTROSE 50% 50 ML VIAL IV PRN (19:52)
[2019-05-09] MEDS ORDERED: ACETAMINOPHEN 325 MG TABLET PO PRN (19:52)
[2019-05-09] MEDS ORDERED: hydrALAZINE 20 MG/ML VIAL IV PRN (19:52)
[2019-05-09] MEDS ORDERED: HYDROmorphone 2 MG/ML VIAL ONE ×2 (19:58→22:13)
[2019-05-09] MEDS ORDERED: PROMETHAZINE 25 MG/ML VIAL IV PRN (20:30)
[2019-05-09] MEDS ORDERED: PROMETHAZINE 25 MG/ML VIAL ONE (20:36)
[2019-05-09] MEDS ORDERED: INSULIN LISPRO 1 UNIT/0.01 ML UNIT SQ SCH (21:00)
[2019-05-09 21:58] LABS: Hematocrit 40.9 % (36.0-48.0); Hemoglobin 13.1 g/dL (12.0-15.0)
[2019-05-10] MEDS ORDERED: 0.9 % SODIUM CHLORIDE 10 ML SYRINGE IV PRN (01:05)
[2019-05-10] MEDS ORDERED: HYDROmorphone 2 MG/ML VIAL ONE ×2 (01:51→05:34)
[2019-05-10] MEDS: HYDROmorphone 2 MG/ML VIAL IV PRN ×8 (01:52→20:03)
[2019-05-10] MEDS: metroNIDAZOLE 500 MG/100 ML BAG IV SCH ×4 (01:53→22:36)
[2019-05-10] MEDS: 0.9 % SODIUM CHLORIDE 10 ML SYRINGE IV SCH ×4 (05:26→22:42)
[2019-05-10] MEDS: 0.9 % SODIUM CHLORIDE 1,000 ML IV SCH ×2 (05:27→17:18)
[2019-05-10] MEDS: ALBUMIN HUMAN 25 GM/100 ML BAG IV SCH (06:19)
[2019-05-10 06:39] LABS: Hematocrit 42.3 % (36.0-48.0); Hemoglobin 13.6 g/dL (12.0-15.0); Mean Cell Volume 87.8 fL (80.0-100.0); Mean Corpuscular HGB Conc 32.1 g/dL (31.0-36.0); Mean Platelet Volume 6.9 fL (7.4-10.4); Platelet Count 530 K/mcL (140-440); RBC 4.81 M/mcL (4.00-5.20); WBC 28.2 K/mcL (4.5-11.0)
[2019-05-10 06:56] LABS: ALT/SGPT 10 U/l (0-40); AST/SGOT 24 U/l (0-37); Albumin 2.9 gm/dL (3.2-5.2); Albumin/Globulin Ratio 1.1 (1.0-2.3); Alkaline Phosphatase 159 U/L (39-117); Bilirubin,Direct < 0.2 mg/dL (0.0-0.3); Bilirubin,Total 0.5 mg/dL (0.0-1.0); Blood Urea Nitrogen 16 mg/dl (8-23); Calcium 8.4 mg/dl (8.6-10.4); Carbon Dioxide 23 mmol/L (22-30); Chloride 99 mmol/L (96-108); Globulin 2.7 gm/dL (2.2-3.7); Glomerular Filtration Rate 91; Glucose 86 mg/dL (70-105); Lactate Dehydrogenase 142 U/L (94-250); Phosphorous 3.5 mg/dL (2.7-4.5); Triglycerides 43 mg/dl (<150); Uric Acid 3.9 mg/dL (2.5-8.0)
[2019-05-10] MEDS: INSULIN LISPRO 1 UNIT/0.01 ML UNIT SQ SCH ×3 (07:18→17:30)
--- NOTE | 2019-05-10 08:09 | Internal Med Progress Note ---
Medical - PN: Subj Patient information: Note initiated : 05/10/19 at 8:03 am Service Date, if different from initiated Date: [] Patient: Melody Dong 83 y/o F admitted on 05/08/19 for Left Lower Abd Pain. Chief Complaint: [] Interval history: Ms. Dong is a 83 year old extremely frail looking female presented to the ER with progressive weakness along with lower abdominal pain that started started a few months ago. She continued to ignore her symptoms failing to realize the progression did not seek medical attention. Symptoms were associated with occasional nausea/abdominal distention and intermittent constipation. Pain is described as 4 out of 10 to 8 out of 10 cramping lower abdominal without radiat ion and without associated blood in stool or change in stool caliber. Patient was recently evaluate by her primary care physician. She was found to have an elevated white count. She was referred to the ER where initial work-up was consistent with sigmoid diverticulitis with perisigmoid abscess measuring 9 and 5 cm. White count 19,000 along with pyuria. Subsequently surgery was consulted. Patient was started on antibiotic after blood cultures were drawn. Hospitalist service was consulted to consider admission while patient will undergo surgical intervention in 24 hours. At the time of evaluation patient is alert and oriented. She was able to endorse history as above. She denies prior similar episodes or abdominal surgery or history of diverticulitis. She denies drenching sweats, shaking chills or fever but endorses fatigue lethargic and loss of appetite. She denies bloody stool. She denies associated weight loss 05/09-patient currently n.p.o. No overnight events. White count downtrending. On antibiotic coverage. Due for surgery at noon. No family at bedside. No other concerns expressed to nursing staff. 05/10 Status post major bowel surgery yesterday with colectomy and colostomy and total abdominal hysterectomy with bilateral salpingo-oophorectomy. Feeling comfortable this morning. No new complaints and did okay overnight. Review of Systems: denies headache/fever/chills/nausea/vomiting/chest or abdominal pain/cough/dyspnea/diarrhea. Otherwise see above. - Constitutional Vitals: Vital Signs Temp Pulse Resp BP Pulse Ox 98.9 F 89 14 117/60 97 05/10/19 06:54 05/10/19 06:54 05/10/19 06:54 05/10/19 06:54 05/10/19 06:54 Period Temp Pulse Resp BP Sys/Nunez Pulse Ox Last 24 Hr 97.9 F-98.9 F 71-115 12-21 99-153/49-79 86-100 Intake and Output 05/09/19 05/10/19 05/10/19 21:59 05:59 13:59 Intake Total 1909 1043 Output Total 1310 170 48 Balance 599 873 -48 Weight 42.819 kg Intake & Output: Intake & Output 05/09/19 05/10/19 05/10/19 21:59 05:59 13:59 Intake Total 1909 1043 Output Total 1310 170 48 Balance 599 873 -48 Weight 42.819 kg Intake: IV 409 1043 Sodium Chloride 0.9% 1,000 ml @ 100 943 100 mls/hr IV .Q10H [facility] Rx#: [id number] Sodium Chloride 0.9% 250 ml @ 109 20 mls/hr IV .[id number] [facility] Rx#: [id number] IV - Manual Only 1500 Output: Drainage 150 50 20 Abdomen AMARILYS Drain 150 50 20 Urine Catheter Amount 660 120 Void Amount 28 Estimated Blood Loss 500 Other: Urine Appearance Sediment Clear Uretheral (Real) Sediment Clear Urine Color Dark Yellow Dark Yellow Bright Yellow Uretheral (Real) Dark Yellow Bright Yellow Exam: General: Alert, Awake, No acute Distress Eyes/N/T: EOMI, Head/Neck: neck supple, CV: RRR, No murmurs, Pulm: Clear b/l, no wheezing/rhonchi/rales Abd: soft, TTP Lower Abd, +BS x4 Ext: no clubbing/cyanosis/edema Neuro: Alert, no focal deficits, moves all extremities, Skin: warm/dry Medical - PN: Obj Da - Labs CBC & Chem 7: 05/10/19 04:00 05/10/19 04:00 Labs: Abnormal Lab Results 05/10/19 05/10/19 05/09/19 04:00 04:00 03:40 WBC 28.2 H RBC Hgb Hct POC Hct MCH RDW 17.0 H Plt Count 530 H MPV 6.9 L Gran % Lymph % (Auto) Gran # Lymph # (Auto) [place] # (Auto) Band Neutrophils % Lymphocytes % RBC Morphology Polychromasia Hypochromasia Anisocytosis Chloride POC BUN BUN Creatinine 0.5 L 0.5 L Glucose POC Glucose Calcium 8.4 L GGT 70 H 57 H Alkaline Phosphatase 159 H 165 H Total Protein 5.6 L 5.7 L Albumin 2.9 L 2.4 L Globulin Albumin/Globulin Ratio 0.7 L Amylase Urine Protein Urine Occult Blood Ur Leukocyte Esterase Urine RBC Urine WBC 05/09/19 05/09/19 05/08/19 03:40 00:25 11:47 WBC 16.2 H 18.9 H RBC 2.84 L 3.28 L Hgb 7.3 L 8.4 L Hct 23.1 L 26.3 L POC Hct MCH 25.7 L 25.6 L RDW 17.5 H 17.3 H Plt Count 679 H 731 H MPV 6.9 L 6.8 L Gran % 88.9 H Lymph % (Auto) 5.7 L Gran # 16.8 H Lymph # (Auto) 1.1 L [place] # (Auto) 1.0 H Band Neutrophils % 15 H Lymphocytes % 12 L RBC Morphology Abnorm A Polychromasia 1+ A Hypochromasia 1+ A Anisocytosis 1+ A Chloride POC BUN BUN Creatinine Glucose POC Glucose Calcium GGT Alkaline Phosphatase Total Protein Albumin Globulin Albumin/Globulin Ratio Amylase Urine Protein >=500 A Urine Occult Blood >=1.0 A Ur Leukocyte Esterase 250 A Urine RBC > 182 H Urine WBC > 182 H 05/08/19 11:46 WBC RBC Hgb Hct POC Hct 26.0 L MCH RDW Plt Count MPV Gran % Lymph % (Auto) Gran # Lymph # (Auto) [place] # (Auto) Band Neutrophils % Lymphocytes % RBC Morphology Polychromasia Hypochromasia Anisocytosis Chloride 95 L POC BUN 28 H BUN 27 H Creatinine Glucose 139 H POC Glucose 136 H Calcium GGT Alkaline Phosphatase 195 H Total Protein Albumin 2.9 L Globulin 3.8 H Albumin/Globulin Ratio 0.8 L Amylase 27 L Urine Protein Urine Occult Blood Ur Leukocyte Esterase Urine RBC Urine WBC Meds: Medications Acetaminophen (Tylenol) 650 mg PO Q4-6HP PRN PRN Reason: PAIN/FEVER > 101 Cefepime HCl (Maxipime) 2 gm IV DAILY [facility] Dextrose (Dextrose 50%) 0 ml IV UD PRN PRN Reason: Hypoglycemia Diagnostic Test (Pha) (Accu-Chek) 1 each FS Q6 [facility] Last Admin: 05/10/19 07:16 Dose: 1 each Documented by: Esomeprazole Magnesium (Nexium) 40 mg IV QAMAC [facility] Glucose (Insta-Glucose) 15 gm PO PRN PRN PRN Reason: Hypoglycemia Hydralazine HCl (Apresoline) 10 mg IV Q4-6HP PRN PRN Reason: Hypertension Hydromorphone HCl (Dilaudid) 0.25 - 0.5 mg IV Q2HP PRN PRN Reason: PAIN LEVEL > 6 Last Admin: 05/10/19 05:33 Dose: 0.5 mg Documented by: Magnesium Sulfate (Magnesium Sulfate) 2 gm in 50 mls @ 50 mls/hr IV UD PRN PRN Reason: MG = or < 1.7 Metronidazole (Flagyl) 500 mg in 100 mls @ 100 mls/hr IV Q8H [facility] Last Infusion: 05/10/19 02:53 Dose: Infused Documented by: Sodium Chloride (Sodium Chloride 0.9%) 1,000 mls @ 100 mls/hr IV .Q10H [facility] Last Admin: 05/10/19 05:27 Dose: 100 mls/hr Documented by: Acetaminophen (Ofirmev) 600 mg in 60 mls @ 120 mls/hr IV Q6HP PRN PRN Reason: Pain Insulin Human Lispro (Humalog) 0 unit SQ Q6 [facility]; Protocol Last Admin: 05/10/19 07:18 Dose: Not Given Documented by: Ondansetron HCl (Zofran) 4 mg IV Q4-6HP PRN PRN Reason: Nausea And Vomiting Promethazine HCl (Phenergan) 12.5 mg IV Q4HP PRN PRN Reason: Nausea And Vomiting Last Admin: 05/09/19 20:35 Dose: 12.5 mg Documented by: Sodium Chloride (Saline Flush) 10 ml IV Q8 [facility] Last Admin: 05/10/19 05:26 Dose: 10 ml Documented by: Sodium Chloride (Saline Flush) 10 ml IV Q12 [facility] Sodium Chloride (Saline Flush) 10 ml IV UD PRN PRN Reason: protocol Medical - PN: A/P - Time Spent With Patient Total time spent is greater than 50% in coordination of care (as documented) at patient's floor/unit and/or counseling patient: - Narrative A/P Narrative: A: *Acute sigmoid diverticulitis w/perisigmoid abscess: s/p Left colectomy w/colostomy & hartmans pouch, JASON-BSO (05/09) -AMARILYS drain in place *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 improved -WBC improving, Stable hemodynamics *Neuropathy: home gabapentin/amitriptyline *h/o migraine: no acute flare *Hypothyroidism: on thyroxine *GERD Plan: -Dr. Cuellar following -diet advancement per Surgery -cont cefepime/flagyl; pending cx's -pain control -IVF's -IS -pt/ot -ppx: heparin/ppi full code Medical - PN: Qual - VTE Deep Vein Thrombosis/Pulmonary Embolism Present on Admission: No
[2019-05-10] MEDS: ESOMEPRAZOLE 40 MG VIAL IV SCH (08:11)
[2019-05-10 08:22] LABS: Anisocytosis FEW (NONE SEEN); Band Neutrophils % 1 % (0-10); Lymphocytes % 3 % (15-49); Monocytes % (Manual) 7 % (1-12); Myelocytes % 2 % (0-0); Platelet Estimate INCREASED (NORMAL); RBC Morphology ABNORM (NORMAL); Segmented Neutrophils % 87 % (38-78)
[2019-05-10] MEDS: ACETAMINOPHEN 600 MG/60 ML BOTTLE IV PRN ×2 (08:51→20:35)
[2019-05-10] MEDS: CEFEPIME 2 GM VIAL IV SCH (08:53)
--- NOTE | 2019-05-10 11:26 | General Surgery Progress Note ---
Subjective Patient reports: feels better, pain is less, no flatus, no bowel movement, afebrile Narrative: Note initiated : 05/10/19 at 11:26 am Service Date, if different from initiated Date: [] Patient: Melody Dong 83 y/o F admitted on 05/08/19 for Left Lower Abd Pain. Chief Complaint: [Patient is bright and alert. She is oriented 3. She denies chest discomfort or respiratory difficulty. Vital signs stable. She has been afebrile. White blood count is 28.2, hemoglobin 13.6. She has some purulent drainage in the vagina.] Objective Temp Pulse Resp BP Pulse Ox 98.9 F 89 10 L 123/64 97 05/10/19 06:54 05/10/19 06:54 05/10/19 08:34 05/10/19 08:34 05/10/19 08:34 - Additional Data Intake & Output - Last 24 hours: Intake & Output 05/08/19 05/09/19 05/10/19 05/11/19 05:59 05:59 05:59 05:59 Intake Total 1700 3834 60 Output Total 530 1930 147 Balance 1170 1904 -87 Weight 88 lb 6 oz 94 lb 6.4 oz - General physical appearance well developed, well nourished, no distress - Eyes PERRL, normal ocular movement - ENT normal pinna, normal nares, normal mucosa, no hearing loss, no congestion - Neck no masses, no bruits, trachea midline, no lymphadenopathy, no venous distension - Respiratory normal expansion, normal respiratory effort, clear to auscultation - Cardiovascular Cardiovascular exam: Present: normal rate and rhythm, RRR, +S1, +S2. Absent: JVD, tachycardia - Abdomen tender (moderate incisional discomfort; good active bowel sounds), bowel sounds (present), surgical scars (none), masses (none) - Integumentary no rash, no growths, no abnormal pigmentation - Neurologic normal coordination, normal sensation - Musculoskeletal normal gait, normal posture - Psychiatric oriented to time, oriented to person, oriented to place, speech is normal, memory intact - Labs 05/10/19 04:00 05/10/19 04:00 Diabetes panel 05/10/19 Range/Units 04:00 Sodium 137 (133-145) mmol/L Potassium 4.3 (3.3-5.1) mmol/L Chloride 99 (96-108) mmol/L Carbon Dioxide 23 (22-30) mmol/L BUN 16 (8-23) mg/dl Creatinine 0.5 L (0.6-1.1) mg/dl Glucose 86 (70-105) mg/dL Calcium 8.4 L (8.6-10.4) mg/dl AST 24 (0-37) U/l ALT 10 (0-40) U/l Alkaline Phosphatase 159 H (39-117) U/L Total Protein 5.6 L (5.9-8.4) gm/dL Albumin 2.9 L (3.2-5.2) gm/dL Triglycerides 43 (<150) mg/dl Calcium panel 05/10/19 Range/Units 04:00 Calcium 8.4 L (8.6-10.4) mg/dl Phosphorus 3.5 (2.7-4.5) mg/dL Albumin 2.9 L (3.2-5.2) gm/dL Pituitary panel 05/10/19 Range/Units 04:00 Sodium 137 (133-145) mmol/L Potassium 4.3 (3.3-5.1) mmol/L Chloride 99 (96-108) mmol/L Carbon Dioxide 23 (22-30) mmol/L BUN 16 (8-23) mg/dl Creatinine 0.5 L (0.6-1.1) mg/dl Glucose 86 (70-105) mg/dL Calcium 8.4 L (8.6-10.4) mg/dl Adrenal panel 05/10/19 Range/Units 04:00 Sodium 137 (133-145) mmol/L Potassium 4.3 (3.3-5.1) mmol/L Chloride 99 (96-108) mmol/L Carbon Dioxide 23 (22-30) mmol/L BUN 16 (8-23) mg/dl Creatinine 0.5 L (0.6-1.1) mg/dl Glucose 86 (70-105) mg/dL Calcium 8.4 L (8.6-10.4) mg/dl Total Bilirubin 0.5 (0.0-1.0) mg/dL AST 24 (0-37) U/l ALT 10 (0-40) U/l Alkaline Phosphatase 159 H (39-117) U/L Total Protein 5.6 L (5.9-8.4) gm/dL Albumin 2.9 L (3.2-5.2) gm/dL Assessment and Plan (1) Acute abscess of female pelvis Status: Acute Assessment and plan: Continue present therapy Check microbiology results Current Visit: Yes (2) Acute diverticulitis of intestine Status: Acute Current Visit: Yes (3) Sepsis Status: Acute Current Visit: Yes - Time Spent With Patient Total time spent is greater than 50% in coordination of care (as documented) at patient's floor/unit and/or counseling patient:
[2019-05-10] MEDS ORDERED: MEPERIDINE 25 MG/ML SYRINGE IV PRN (22:07)
[2019-05-10] MEDS ORDERED: PROMETHAZINE 25 MG/ML VIAL ONE (22:29)
[2019-05-10] MEDS ORDERED: MEPERIDINE 50 MG/ML INJECTION ONE (22:29)
[2019-05-11] MEDS: INSULIN LISPRO 1 UNIT/0.01 ML UNIT SQ SCH ×5 (00:41→23:25)
[2019-05-11] MEDS: 0.9 % SODIUM CHLORIDE 10 ML SYRINGE IV SCH ×7 (00:42→20:58)
[2019-05-11] MEDS ORDERED: MEPERIDINE 50 MG/ML INJECTION ONE ×3 (00:53→06:09)
[2019-05-11] MEDS ORDERED: PROMETHAZINE 25 MG/ML VIAL ONE (03:09)
[2019-05-11] MEDS: PROMETHAZINE 25 MG/ML VIAL IV PRN ×2 (03:10→14:35)
[2019-05-11] MEDS: ACETAMINOPHEN 600 MG/60 ML BOTTLE IV PRN ×2 (03:11→15:21)
[2019-05-11] MEDS: 0.9 % SODIUM CHLORIDE 1,000 ML IV SCH ×2 (04:26→15:17)
[2019-05-11] MEDS: metroNIDAZOLE 500 MG/100 ML BAG IV SCH ×3 (05:46→20:57)
[2019-05-11 06:11] LABS: Hematocrit 38.2 % (36.0-48.0); Hemoglobin 12.3 g/dL (12.0-15.0); Mean Cell Volume 88.2 fL (80.0-100.0); Mean Corpuscular HGB Conc 32.2 g/dL (31.0-36.0); Mean Platelet Volume 6.6 fL (7.4-10.4); Platelet Count 511 K/mcL (140-440); RBC 4.33 M/mcL (4.00-5.20); Red Cell Distribution Width 18.2 % (11.5-14.5); WBC 22.3 K/mcL (4.5-11.0)
[2019-05-11 06:29] LABS: ALT/SGPT 8 U/l (0-40); AST/SGOT 19 U/l (0-37); Albumin 2.3 gm/dL (3.2-5.2); Albumin/Globulin Ratio 0.9 (1.0-2.3); Alkaline Phosphatase 130 U/L (39-117); Bilirubin,Direct < 0.2 mg/dL (0.0-0.3); Bilirubin,Total 0.3 mg/dL (0.0-1.0); Blood Urea Nitrogen 14 mg/dl (8-23); Calcium 8.5 mg/dl (8.6-10.4); Carbon Dioxide 21 mmol/L (22-30); Chloride 103 mmol/L (96-108); Globulin 2.5 gm/dL (2.2-3.7); Glomerular Filtration Rate 91; Glucose 59 mg/dL (70-105); Lactate Dehydrogenase 173 U/L (94-250); Phosphorous 1.9 mg/dL (2.7-4.5); Triglycerides 76 mg/dl (<150)
[2019-05-11] MEDS ORDERED: LEVOTHYROXINE 25 MCG TABLET PO SCH (07:30)
[2019-05-11 07:38] LABS: Anisocytosis 1+ (NONE SEEN); Lymphocytes % 4 % (15-49); Monocytes % (Manual) 6 % (1-12); Platelet Estimate INCREASED (NORMAL); RBC Morphology ABNORM (NORMAL); Segmented Neutrophils % 90 % (38-78)
[2019-05-11] MEDS: LEVOTHYROXINE 100 MCG VIAL IV SCH (08:20)
[2019-05-11] MEDS: ESOMEPRAZOLE 40 MG VIAL IV SCH (08:20)
[2019-05-11] MEDS: CEFEPIME 2 GM VIAL IV SCH (08:54)
[2019-05-11] MEDS ORDERED: POTASSIUM PHOSPHATE 40 MEQ in DEXTROSE 5% IN WATER 500 ML IV ONE (09:14)
--- NOTE | 2019-05-11 09:16 | Internal Med Progress Note ---
Medical - PN: Subj Patient information: Note initiated : 05/11/19 at 9:11 am Service Date, if different from initiated Date: [] Patient: Melody Dong 83 y/o F admitted on 05/08/19 for Left Lower Abd Pain. Chief Complaint: [] Interval history: Ms. Dong is a 83 year old extremely frail looking female presented to the ER with progressive weakness along with lower abdominal pain that started started a few months ago. She continued to ignore her symptoms failing to realize the progression did not seek medical attention. Symptoms were associated with occasional nausea/abdominal distention and intermittent constipation. Pain is described as 4 out of 10 to 8 out of 10 cramping lower abdominal without radiat ion and without associated blood in stool or change in stool caliber. Patient was recently evaluate by her primary care physician. She was found to have an elevated white count. She was referred to the ER where initial work-up was consistent with sigmoid diverticulitis with perisigmoid abscess measuring 9 and 5 cm. White count 19,000 along with pyuria. Subsequently surgery was consulted. Patient was started on antibiotic after blood cultures were drawn. Hospitalist service was consulted to consider admission while patient will undergo surgical intervention in 24 hours. At the time of evaluation patient is alert and oriented. She was able to endorse history as above. She denies prior similar episodes or abdominal surgery or history of diverticulitis. She denies drenching sweats, shaking chills or fever but endorses fatigue lethargic and loss of appetite. She denies bloody stool. She denies associated weight loss 05/09-patient currently n.p.o. No overnight events. White count downtrending. On antibiotic coverage. Due for surgery at noon. No family at bedside. No other concerns expressed to nursing staff. 05/10 Status post major bowel surgery yesterday with colectomy and colostomy and total abdominal hysterectomy with bilateral salpingo-oophorectomy. Feeling comfortable this morning. No new complaints and did okay overnight. 05/11 Some pain control last night so had poor sleep but pain control better this morning. Has a little bit of nausea and some abdominal pain otherwise no new complaints. Review of Systems: denies headache/fever/chills/vomiting/chest pain/cough/dyspnea/diarrhea. Otherwise see above. - Constitutional Vitals: Vital Signs Temp Pulse Resp BP Pulse Ox 98.3 F 81 17 122/53 96 05/11/19 07:01 05/10/19 11:51 05/11/19 08:01 05/11/19 08:01 05/11/19 08:01 Period Temp Pulse Resp BP Sys/Nunez Pulse Ox Last 24 Hr 98.3 F-98.8 F 81 12-24 109-135/53-76 96-100 Intake and Output 05/10/19 05/11/19 05/11/19 21:59 05:59 13:59 Intake Total 1200 1160 Output Total 460 723 68 Balance 740 437 -68 Weight 43.908 kg Intake & Output: Intake & Output 05/10/19 05/11/19 05/11/19 21:59 05:59 13:59 Intake Total 1200 1160 Output Total 460 723 68 Balance 740 437 -68 Weight 43.908 kg Intake: IV 1160 1160 Sodium Chloride 0.9% 1,000 ml @ 1000 1000 100 mls/hr IV .Q10H [facility] Rx#: [id number] Input, Drain Irrigation Amount 40 Abdomen AMARILYS Drain 40 Output: Gastric Drainage 175 400 Right Nare 175 400 Drainage 70 Abdomen AMARILYS Drain 70 Urine Catheter Amount 285 253 68 Other: Urine Appearance Clear Clear Clear Uretheral (Real) Clear Clear Urine Color Light [place] Dark [place] Bright Yellow Uretheral (Real) Light [place] Dark [place] Bright Yellow Urine Odor Strong Exam: General: Alert, Awake, No acute Distress Eyes/N/T: EOMI, Head/Neck: neck supple, CV: RRR, No murmurs, Pulm: Clear b/l, no wheezing/rhonchi/rales Abd: soft, hypoactive, NGT in place Ext: no clubbing/cyanosis/edema Neuro: Alert, no focal deficits, moves all extremities, Skin: warm/dry Medical - PN: Obj Da - Labs CBC & Chem 7: 05/11/19 04:00 05/11/19 04:00 Labs: Abnormal Lab Results 05/11/19 05/11/19 05/10/19 04:00 04:00 04:00 WBC 22.3 H RBC Hgb Hct POC Hct MCH RDW 18.2 H Plt Count 511 H MPV 6.6 L Gran % Lymph % (Auto) Gran # Lymph # (Auto) [place] # (Auto) Seg Neutrophils % 90 H Band Neutrophils % Lymphocytes % 4 L Myelocytes % RBC Morphology Abnorm A Polychromasia Hypochromasia Anisocytosis 1+ A Chloride Carbon Dioxide 21 L POC BUN BUN Creatinine 0.5 L 0.5 L Glucose 59 L POC Glucose Calcium 8.5 L 8.4 L Phosphorus 1.9 L GGT 52 H 70 H Alkaline Phosphatase 130 H 159 H Total Protein 4.8 L 5.6 L Albumin 2.3 L 2.9 L Globulin Albumin/Globulin Ratio 0.9 L Amylase Urine Protein Urine Occult Blood Ur Leukocyte Esterase Urine RBC Urine WBC 05/10/19 05/09/19 05/09/19 04:00 03:40 03:40 WBC 28.2 H 16.2 H RBC 2.84 L Hgb 7.3 L Hct 23.1 L POC Hct MCH 25.7 L RDW 17.0 H 17.5 H Plt Count 530 H 679 H MPV 6.9 L 6.9 L Gran % Lymph % (Auto) Gran # Lymph # (Auto) [place] # (Auto) Seg Neutrophils % 87 H Band Neutrophils % 15 H Lymphocytes % 3 L 12 L Myelocytes % 2 H RBC Morphology Abnorm A Abnorm A Polychromasia 1+ A Hypochromasia 1+ A Anisocytosis Few A 1+ A Chloride Carbon Dioxide POC BUN BUN Creatinine 0.5 L Glucose POC Glucose Calcium Phosphorus GGT 57 H Alkaline Phosphatase 165 H Total Protein 5.7 L Albumin 2.4 L Globulin Albumin/Globulin Ratio 0.7 L Amylase Urine Protein Urine Occult Blood Ur Leukocyte Esterase Urine RBC Urine WBC 05/09/19 05/08/19 05/08/19 00:25 11:47 11:46 WBC 18.9 H RBC 3.28 L Hgb 8.4 L Hct 26.3 L POC Hct 26.0 L MCH 25.6 L RDW 17.3 H Plt Count 731 H MPV 6.8 L Gran % 88.9 H Lymph % (Auto) 5.7 L Gran # 16.8 H Lymph # (Auto) 1.1 L [place] # (Auto) 1.0 H Seg Neutrophils % Band Neutrophils % Lymphocytes % Myelocytes % RBC Morphology Polychromasia Hypochromasia Anisocytosis Chloride 95 L Carbon Dioxide POC BUN 28 H BUN 27 H Creatinine Glucose 139 H POC Glucose 136 H Calcium Phosphorus GGT Alkaline Phosphatase 195 H Total Protein Albumin 2.9 L Globulin 3.8 H Albumin/Globulin Ratio 0.8 L Amylase 27 L Urine Protein >=500 A Urine Occult Blood >=1.0 A Ur Leukocyte Esterase 250 A Urine RBC > 182 H Urine WBC > 182 H Meds: Medications Acetaminophen (Tylenol) 650 mg PO Q4-6HP PRN PRN Reason: PAIN/FEVER > 101 Cefepime HCl (Maxipime) 2 gm IV DAILY [facility] Last Admin: 05/11/19 08:54 Dose: 2 gm Documented by: Dextrose (Dextrose 50%) 0 ml IV UD PRN PRN Reason: Hypoglycemia Diagnostic Test (Pha) (Accu-Chek) 1 each FS Q6 [facility] Last Admin: 05/11/19 05:46 Dose: 1 each Documented by: Esomeprazole Magnesium (Nexium) 40 mg IV QAMAC [facility] Last Admin: 05/11/19 08:20 Dose: 40 mg Documented by: Glucose (Insta-Glucose) 15 gm PO PRN PRN PRN Reason: Hypoglycemia Hydralazine HCl (Apresoline) 10 mg IV Q4-6HP PRN PRN Reason: Hypertension Magnesium Sulfate (Magnesium Sulfate) 2 gm in 50 mls @ 50 mls/hr IV UD PRN PRN Reason: MG = or < 1.7 Metronidazole (Flagyl) 500 mg in 100 mls @ 100 mls/hr IV Q8H [facility] Last Admin: 05/11/19 05:46 Dose: 100 mls/hr Documented by: Sodium Chloride (Sodium Chloride 0.9%) 1,000 mls @ 100 mls/hr IV .Q10H [facility] Last Admin: 05/11/19 04:26 Dose: 100 mls/hr Documented by: Acetaminophen (Ofirmev) 600 mg in 60 mls @ 120 mls/hr IV Q6HP PRN PRN Reason: Pain Last Infusion: 05/11/19 03:41 Dose: Infused Documented by: Insulin Human Lispro (Humalog) 0 unit SQ Q6 [facility]; Protocol Last Admin: 05/11/19 05:56 Dose: Not Given Documented by: Levothyroxine Sodium (Synthroid) 25 mcg IV ACB [facility] Last Admin: 05/11/19 08:20 Dose: 25 mcg Documented by: Meperidine HCl (Demerol) 25 mg IV Q2H PRN PRN Reason: PAIN LEVEL > 6 Ondansetron HCl (Zofran) 4 mg IV Q4-6HP PRN PRN Reason: Nausea And Vomiting Promethazine HCl (Phenergan) 6.25 mg IV Q4HP PRN PRN Reason: Nausea And Vomiting Last Admin: 05/11/19 03:10 Dose: 6.25 mg Documented by: Sodium Chloride (Saline Flush) 10 ml IV Q8 [facility] Last Admin: 05/11/19 05:57 Dose: 10 ml Documented by: Sodium Chloride (Saline Flush) 10 ml IV Q12 [facility] Last Admin: 05/11/19 00:42 Dose: Not Given Documented by: Sodium Chloride (Saline Flush) 10 ml IV UD PRN PRN Reason: protocol Medical - PN: A/P - Time Spent With Patient Total time spent is greater than 50% in coordination of care (as documented) at patient's floor/unit and/or counseling patient: - Narrative A/P Narrative: A: *Acute sigmoid diverticulitis w/perisigmoid abscess: s/p Left colectomy w/colostomy & hartmans pouch, JASON-BSO (05/09) -AMARILYS drain in place *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 improved -WBC improving, Stable hemodynamics *Neuropathy: home gabapentin/amitriptyline *h/o migraine: no acute flare *Hypothyroidism: on thyroxine *GERD *Hypophos: Plan: -Dr. Cuellar following -diet advancement per Surgery -cont cefepime/flagyl; pending cx's -pain control -IVF's -replete phos -IS -pt/ot -ppx: heparin/ppi full code Medical - PN: Qual - VTE Deep Vein Thrombosis/Pulmonary Embolism Present on Admission: No
[2019-05-11] MEDS: ONDANSETRON 4 MG/2 ML VIAL IV PRN ×2 (09:53→15:20)
[2019-05-11] MEDS: DEXTROSE 5% IN WATER 1,000 ML IV SCH ×2 (10:06→23:26)
[2019-05-11] MEDS ORDERED: METOPROLOL TARTRATE 5 MG/5 ML VIAL IV ONE (10:15)
[2019-05-11] MEDS: MEPERIDINE 50 MG/ML INJECTION IV PRN ×4 (10:45→23:21)
[2019-05-11] MEDS: MAGNESIUM SULFATE 2 GM/50 ML BAG IV PRN (10:46)
[2019-05-11] MEDS ORDERED: METOPROLOL TARTRATE 5 MG/5 ML VIAL IV PRN (11:53)
--- NOTE | 2019-05-11 14:37 | General Surgery Progress Note ---
Subjective Patient reports: feels better, still having pain, no flatus, no bowel movement, afebrile Narrative: Note initiated : 05/11/19 at 2:35 pm Service Date, if different from initiated Date: [] Patient: Melody Dong 83 y/o F admitted on 05/08/19 for Left Lower Abd Pain. Chief Complaint: [Patient is stable. She has had some difficulty with pain control and was switched to Demerol and promethazine which seems to be more effective. She has not had nausea. Has not been any output via her stoma. White blood count 22.3, hemoglobin 12.3, phosphorus 1.9. Cultures are growing gram-negative bacillus and Gram stain shows gram-positive cocci in pairs and chains. Urine has no growth so far. There is no anaerobic growth in.] Objective Temp Pulse Resp BP Pulse Ox 98.9 F 81 17 115/55 97 05/11/19 12:01 05/10/19 11:51 05/11/19 12:01 05/11/19 13:01 05/11/19 13:01 - Additional Data Intake & Output - Last 24 hours: Intake & Output 05/09/19 05/10/19 05/11/19 05/12/19 05:59 05:59 05:59 05:59 Intake Total 1700 3834 2580 922 Output Total 530 1930 1490 222 Balance 1170 1904 1090 700 Weight 88 lb 6 oz 94 lb 6.4 oz 96 lb 12.8 oz - General physical appearance moderate distress, severe pain, cachectic, chronically ill - Eyes PERRL, normal ocular movement - ENT normal pinna, normal nares, normal mucosa, no hearing loss, no congestion - Neck no masses, no bruits, trachea midline, no lymphadenopathy, no venous distension - Respiratory normal expansion, normal respiratory effort, clear to auscultation - Cardiovascular Cardiovascular exam: Present: normal rate and rhythm, RRR, +S1, +S2. Absent: bradycardia, tachycardia - Abdomen tender (moderately severe tenderness of abdominal wall; active bowel sounds; stoma looks good; moderate distention; AMARILYS drainage is serosanguineous) - Integumentary no rash, no growths, no abnormal pigmentation - Neurologic normal coordination, normal sensation - Psychiatric oriented to time, oriented to person, oriented to place, speech is normal, memory intact - Labs 05/11/19 04:00 05/11/19 04:00 Diabetes panel 05/11/19 Range/Units 04:00 Sodium 139 (133-145) mmol/L Potassium 4.0 (3.3-5.1) mmol/L Chloride 103 (96-108) mmol/L Carbon Dioxide 21 L (22-30) mmol/L BUN 14 (8-23) mg/dl Creatinine 0.5 L (0.6-1.1) mg/dl Glucose 59 L (70-105) mg/dL Calcium 8.5 L (8.6-10.4) mg/dl AST 19 (0-37) U/l ALT 8 (0-40) U/l Alkaline Phosphatase 130 H (39-117) U/L Total Protein 4.8 L (5.9-8.4) gm/dL Albumin 2.3 L (3.2-5.2) gm/dL Triglycerides 76 (<150) mg/dl Calcium panel 05/11/19 Range/Units 04:00 Calcium 8.5 L (8.6-10.4) mg/dl Phosphorus 1.9 L (2.7-4.5) mg/dL Albumin 2.3 L (3.2-5.2) gm/dL Pituitary panel 05/11/19 Range/Units 04:00 Sodium 139 (133-145) mmol/L Potassium 4.0 (3.3-5.1) mmol/L Chloride 103 (96-108) mmol/L Carbon Dioxide 21 L (22-30) mmol/L BUN 14 (8-23) mg/dl Creatinine 0.5 L (0.6-1.1) mg/dl Glucose 59 L (70-105) mg/dL Calcium 8.5 L (8.6-10.4) mg/dl Adrenal panel 05/11/19 Range/Units 04:00 Sodium 139 (133-145) mmol/L Potassium 4.0 (3.3-5.1) mmol/L Chloride 103 (96-108) mmol/L Carbon Dioxide 21 L (22-30) mmol/L BUN 14 (8-23) mg/dl Creatinine 0.5 L (0.6-1.1) mg/dl Glucose 59 L (70-105) mg/dL Calcium 8.5 L (8.6-10.4) mg/dl Total Bilirubin 0.3 (0.0-1.0) mg/dL AST 19 (0-37) U/l ALT 8 (0-40) U/l Alkaline Phosphatase 130 H (39-117) U/L Total Protein 4.8 L (5.9-8.4) gm/dL Albumin 2.3 L (3.2-5.2) gm/dL Assessment and Plan (1) Acute abscess of female pelvis Status: Acute Assessment and plan: Discontinue nasogastric tube Start MiraLAX one glass 3 times daily to try to emulsify the hard stool that is in her colon Check 2 view abdominal x-rays in the morning Current Visit: Yes (2) Acute diverticulitis of intestine Status: Acute Current Visit: Yes (3) Sepsis Status: Acute Current Visit: Yes - Time Spent With Patient Total time spent is greater than 50% in coordination of care (as documented) at patient's floor/unit and/or counseling patient:
[2019-05-11] MEDS: POLYETHYLENE GLYCOL 3350 17 GM PACKET PO SCH ×3 (14:55→23:13)
[2019-05-11] MEDS: METOCLOPRAMIDE 10 MG/2 ML VIAL IV SCH ×2 (17:51→23:22)
[2019-05-12] MEDS: MEPERIDINE 50 MG/ML INJECTION IV PRN ×5 (02:06→23:40)
[2019-05-12] MEDS: POLYETHYLENE GLYCOL 3350 17 GM PACKET PO SCH ×3 (02:08→10:13)
[2019-05-12] MEDS: metroNIDAZOLE 500 MG/100 ML BAG IV SCH ×3 (05:16→22:39)
[2019-05-12] MEDS: 0.9 % SODIUM CHLORIDE 10 ML SYRINGE IV SCH ×5 (05:16→21:39)
[2019-05-12] MEDS: METOCLOPRAMIDE 10 MG/2 ML VIAL IV SCH ×4 (05:17→23:40)
[2019-05-12] MEDS: INSULIN LISPRO 1 UNIT/0.01 ML UNIT SQ SCH ×4 (05:42→23:41)
[2019-05-12 07:03] LABS: Hematocrit 41.9 % (36.0-48.0); Hemoglobin 13.7 g/dL (12.0-15.0); Mean Cell Volume 87.3 fL (80.0-100.0); Mean Corpuscular HGB Conc 32.8 g/dL (31.0-36.0); Mean Platelet Volume 6.7 fL (7.4-10.4); Platelet Count 556 K/mcL (140-440); RBC 4.79 M/mcL (4.00-5.20); Red Cell Distribution Width 18.3 % (11.5-14.5); WBC 21.5 K/mcL (4.5-11.0)
[2019-05-12 07:27] LABS: ALT/SGPT 7 U/l (0-40); AST/SGOT 14 U/l (0-37); Albumin 2.3 gm/dL (3.2-5.2); Albumin/Globulin Ratio 0.9 (1.0-2.3); Alkaline Phosphatase 125 U/L (39-117); Bilirubin,Direct < 0.2 mg/dL (0.0-0.3); Bilirubin,Total 0.4 mg/dL (0.0-1.0); Blood Urea Nitrogen 9 mg/dl (8-23); Calcium 8.2 mg/dl (8.6-10.4); Carbon Dioxide 27 mmol/L (22-30); Chloride 96 mmol/L (96-108); Globulin 2.6 gm/dL (2.2-3.7); Glomerular Filtration Rate 98; Glucose 140 mg/dL (70-105); Lactate Dehydrogenase 178 U/L (94-250); Phosphorous 1.5 mg/dL (2.7-4.5); Triglycerides 100 mg/dl (<150); Uric Acid 3.2 mg/dL (2.5-8.0)
[2019-05-12] MEDS ORDERED: SODIUM PHOSPHATE 30 MMOL in DEXTROSE 5% IN WATER 500 ML IV ONE (07:53)
--- NOTE | 2019-05-12 07:55 | Internal Med Progress Note ---
Medical - PN: Subj Patient information: Note initiated : 05/12/19 at 7:51 am Service Date, if different from initiated Date: [] Patient: Melody Dong 83 y/o F admitted on 05/08/19 for Left Lower Abd Pain. Chief Complaint: [] Interval history: Ms. Dong is a 83 year old extremely frail looking female presented to the ER with progressive weakness along with lower abdominal pain that started started a few months ago. She continued to ignore her symptoms failing to realize the progression did not seek medical attention. Symptoms were associated with occasional nausea/abdominal distention and intermittent constipation. Pain is described as 4 out of 10 to 8 out of 10 cramping lower abdominal without radiat ion and without associated blood in stool or change in stool caliber. Patient was recently evaluate by her primary care physician. She was found to have an elevated white count. She was referred to the ER where initial work-up was consistent with sigmoid diverticulitis with perisigmoid abscess measuring 9 and 5 cm. White count 19,000 along with pyuria. Subsequently surgery was consulted. Patient was started on antibiotic after blood cultures were drawn. Hospitalist service was consulted to consider admission while patient will undergo surgical intervention in 24 hours. At the time of evaluation patient is alert and oriented. She was able to endorse history as above. She denies prior similar episodes or abdominal surgery or history of diverticulitis. She denies drenching sweats, shaking chills or fever but endorses fatigue lethargic and loss of appetite. She denies bloody stool. She denies associated weight loss 05/09-patient currently n.p.o. No overnight events. White count downtrending. On antibiotic coverage. Due for surgery at noon. No family at bedside. No other concerns expressed to nursing staff. 05/10 Status post major bowel surgery yesterday with colectomy and colostomy and total abdominal hysterectomy with bilateral salpingo-oophorectomy. Feeling comfortable this morning. No new complaints and did okay overnight. 05/11 Some pain control last night so had poor sleep but pain control better this morning. Has a little bit of nausea and some abdominal pain otherwise no new complaints. 05/12 Patient is drowsy on my examination after getting pain medication. She states she had poor sleep last night because of noise. She has abdominal pain. No chest pain coughing shortness of breath. Review of Systems: denies headache/fever/chills/vomiting/chest pain/cough/dyspnea/diarrhea. Otherwise see above. - Constitutional Vitals: Vital Signs Temp Pulse Resp BP Pulse Ox 98.6 F 81 18 126/64 99 05/12/19 04:01 05/12/19 02:00 05/12/19 07:01 05/12/19 07:01 05/12/19 07:01 Period Temp Pulse Resp BP Sys/Nunez Pulse Ox Last 24 Hr 96.7 F-98.9 F 73-90 12-20 102-143/53-82 92-100 Intake and Output 05/11/19 05/12/19 05/12/19 21:59 05:59 13:59 Intake Total 939.0909 1073 Output Total 464 392 Balance 475.0909 681 Weight 46.221 kg Intake & Output: Intake & Output 05/11/19 05/12/19 05/12/19 21:59 05:59 13:59 Intake Total 939.0909 1073 Output Total 464 392 Balance 475.0909 681 Weight 46.221 kg Intake: IV 819.0909 933 Dextrose 5% in Water 1,000 ml @ 933 70 mls/hr IV .[id number] [facility] Rx#: [id number] Potassium Phosphate 40 Meq In 509.0909 Dextrose 5% in Water 500 ml @ 127.273 mls/hr IV ONCE ONE Rx#: [id number] Oral 120 120 Input, Drain Irrigation Amount 20 Abdomen AMARILYS Drain 20 Output: Gastric Drainage 100 Right Nare 100 Drainage 160 50 Abdomen AMARILYS Drain 160 50 Urine Catheter Amount 169 342 Void Amount 35 Other: Urine Appearance Clear Uretheral (Real) Clear Urine Color Dark Yellow Dark Yellow Uretheral (Real) Dark Yellow Dark Yellow Urine Odor Strong Exam: General: Alert, Awake, No acute Distress Eyes/N/T: EOMI, Head/Neck: neck supple, CV: RRR, No murmurs, Pulm: Clear b/l, no wheezing/rhonchi/rales Abd: soft, generalized TTP, colostomy in place no outpt Ext: no clubbing/cyanosis/edema Neuro: Alert, no focal deficits, moves all extremities, Skin: warm/dry Medical - PN: Obj Da - Labs CBC & Chem 7: 05/12/19 04:00 05/12/19 04:00 Labs: Abnormal Lab Results 05/12/19 05/12/19 05/11/19 04:00 04:00 04:00 WBC 21.5 H RDW 18.3 H Plt Count 556 H MPV 6.7 L Seg Neutrophils % Band Neutrophils % Lymphocytes % Myelocytes % RBC Morphology Polychromasia Hypochromasia Anisocytosis Carbon Dioxide 21 L Creatinine 0.4 L 0.5 L Glucose 140 H 59 L Calcium 8.2 L 8.5 L Phosphorus 1.5 L 1.9 L GGT 51 H 52 H Alkaline Phosphatase 125 H 130 H Total Protein 4.9 L 4.8 L Albumin 2.3 L 2.3 L Albumin/Globulin Ratio 0.9 L 0.9 L 05/11/19 05/10/19 05/10/19 04:00 04:00 04:00 WBC 22.3 H 28.2 H RDW 18.2 H 17.0 H Plt Count 511 H 530 H MPV 6.6 L 6.9 L Seg Neutrophils % 90 H 87 H Band Neutrophils % Lymphocytes % 4 L 3 L Myelocytes % 2 H RBC Morphology Abnorm A Abnorm A Polychromasia Hypochromasia Anisocytosis 1+ A Few A Carbon Dioxide Creatinine 0.5 L Glucose Calcium 8.4 L Phosphorus GGT 70 H Alkaline Phosphatase 159 H Total Protein 5.6 L Albumin 2.9 L Albumin/Globulin Ratio 05/09/19 03:40 WBC RDW Plt Count MPV Seg Neutrophils % Band Neutrophils % 15 H Lymphocytes % 12 L Myelocytes % RBC Morphology Abnorm A Polychromasia 1+ A Hypochromasia 1+ A Anisocytosis 1+ A Carbon Dioxide Creatinine Glucose Calcium Phosphorus GGT Alkaline Phosphatase Total Protein Albumin Albumin/Globulin Ratio Meds: Medications Acetaminophen (Tylenol) 650 mg PO Q4-6HP PRN PRN Reason: PAIN/FEVER > 101 Cefepime HCl (Maxipime) 2 gm IV DAILY [facility] Last Admin: 05/11/19 08:54 Dose: 2 gm Documented by: Dextrose (Dextrose 50%) 0 ml IV UD PRN PRN Reason: Hypoglycemia Diagnostic Test (Pha) (Accu-Chek) 1 each FS Q6 [facility] Last Admin: 05/12/19 05:42 Dose: 1 each Documented by: Esomeprazole Magnesium (Nexium) 40 mg IV QAMAC [facility] Last Admin: 05/11/19 08:20 Dose: 40 mg Documented by: Glucose (Insta-Glucose) 15 gm PO PRN PRN PRN Reason: Hypoglycemia Hydralazine HCl (Apresoline) 10 mg IV Q4-6HP PRN PRN Reason: Hypertension Magnesium Sulfate (Magnesium Sulfate) 2 gm in 50 mls @ 50 mls/hr IV UD PRN PRN Reason: MG = or < 1.7 Last Infusion: 05/11/19 16:38 Dose: Infused Documented by: Metronidazole (Flagyl) 500 mg in 100 mls @ 100 mls/hr IV Q8H [facility] Last Admin: 05/12/19 05:16 Dose: 100 mls/hr Documented by: Acetaminophen (Ofirmev) 600 mg in 60 mls @ 120 mls/hr IV Q6HP PRN PRN Reason: Pain Last Infusion: 05/11/19 16:38 Dose: Infused Documented by: Dextrose (Dextrose 5% In Water) 1,000 mls @ 70 mls/hr IV .[id number] [facility] Last Admin: 05/11/19 23:26 Dose: 70 mls/hr Documented by: Insulin Human Lispro (Humalog) 0 unit SQ Q6 [facility]; Protocol Last Admin: 05/12/19 05:42 Dose: Not Given Documented by: Levothyroxine Sodium (Synthroid) 25 mcg IV ACB [facility] Last Admin: 05/11/19 08:20 Dose: 25 mcg Documented by: Meperidine HCl (Demerol) 25 - 37.5 mg IV Q2H PRN PRN Reason: PAIN LEVEL > 6 Last Admin: 05/12/19 05:15 Dose: 25 mg Documented by: Metoclopramide HCl (Reglan) 10 mg IV Q6 [facility] Last Admin: 05/12/19 05:17 Dose: 10 mg Documented by: Metoprolol Tartrate (Lopressor) 5 mg IV Q2HP PRN PRN Reason: Tachyarrhythmias HR>110 Ondansetron HCl (Zofran) 4 mg IV Q4-6HP PRN PRN Reason: Nausea And Vomiting Last Admin: 05/11/19 15:20 Dose: 4 mg Documented by: Polyethylene Glycol (Miralax) 17 gm PO Q4H [facility] Stop: 05/12/19 11:01 Last Admin: 05/12/19 02:08 Dose: 17 gm Documented by: Promethazine HCl (Phenergan) 6.25 mg IV Q4HP PRN PRN Reason: Nausea And Vomiting Last Admin: 05/11/19 14:35 Dose: 6.25 mg Documented by: Sodium Chloride (Saline Flush) 10 ml IV Q8 [facility] Last Admin: 05/12/19 05:16 Dose: 10 ml Documented by: Sodium Chloride (Saline Flush) 10 ml IV Q12 [facility] Last Admin: 05/11/19 20:58 Dose: Not Given Documented by: Sodium Chloride (Saline Flush) 10 ml IV UD PRN PRN Reason: protocol Medical - PN: A/P - Time Spent With Patient Total time spent is greater than 50% in coordination of care (as documented) at patient's floor/unit and/or counseling patient: - Narrative A/P Narrative: A: *Acute sigmoid diverticulitis w/perisigmoid abscess: s/p Left colectomy w/colostomy & hartmans pouch, JASON-BSO (05/09) -AMARILYS drain in place -Wound Cx's growing Klebsiella *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 improved -WBC remain elevated, Stable hemodynamics *Neuropathy: home gabapentin/amitriptyline *h/o migraine: no acute flare *Hypothyroidism: on thyroxine *GERD *Hypophos: Plan: -Dr. Cuellar following -diet advancement per Surgery -cont cefepime/flagyl; pending final cx's -pain control -IVF's while NPO -replete phos -IS -pt/ot -ppx: heparin/ppi full code Medical - PN: Qual - VTE Deep Vein Thrombosis/Pulmonary Embolism Present on Admission: No
[2019-05-12 07:57] LABS: Anisocytosis 1+ (NONE SEEN); Band Neutrophils % 14 % (0-10); Eosinophils % (Manual) 1 % (0-7); Lymphocytes % 3 % (15-49); Monocytes % (Manual) 4 % (1-12); Platelet Estimate INCREASED (NORMAL); RBC Morphology ABNORM (NORMAL); Reactive Lymphocytes 1 % (0-2); Segmented Neutrophils % 77 % (38-78)
[2019-05-12] MEDS: MAGNESIUM SULFATE 2 GM/50 ML BAG IV PRN (08:00)
[2019-05-12] MEDS ORDERED: POLYETHYLENE GLYCOL 3350 17 GM PACKET PO SCH (09:00)
[2019-05-12] MEDS ORDERED: CIPROFLOXACIN 400 MG/200 ML BAG IV SCH (10:00)
[2019-05-12] MEDS: CIPROFLOXACIN 400 MG/200 ML BAG IV SCH ×2 (10:08→20:54)
[2019-05-12] MEDS: LEVOTHYROXINE 100 MCG VIAL IV SCH (10:13)
[2019-05-12] MEDS: ESOMEPRAZOLE 40 MG VIAL IV SCH (10:13)
[2019-05-12] MEDS: PROMETHAZINE 25 MG/ML VIAL IV PRN ×2 (10:14→17:15)
[2019-05-12] MEDS: CEFEPIME 2 GM VIAL IV SCH (10:59)
[2019-05-12] MEDS: DEXTROSE 5% IN WATER 1,000 ML IV SCH (15:09)
--- NOTE | 2019-05-12 15:53 | Surgical Pathology Report ---
HISTOLOGY SPECIMEN MICROSCOPIC DIAGNOSIS SPECIMEN A - COLON, SIGMOID, PARTIAL COLECTOMY: -- DIVERTICULITIS WITH FOCAL PERFORATION AND ACUTE SEROSITIS. -- TWO BENIGN LYMPH NODES. -- VIABLE MARGINS OF RESECTION. -- NO MALIGNANCY IDENTIFIED. SPECIMEN B - UTERUS, FALLOPIAN TUBES AND OVARIES, HYSTERECTOMY AND BILATERAL SALPINGO-OOPHORECTOMY: -- ENDOMETRIUM: - ATROPHIC ENDOMETRIUM WITH ENDOMETRITIS. - NO HYPERPLASIA OR MALIGNANCY IDENTIFIED. -- MYOMETRIUM: NO DIAGNOSTIC ALTERATIONS. -- CERVIX: - ATROPHIC CHANGES. - NO DYSPLASIA OR MALIGNANCY IDENTIFIED. -- OVARY: NO DIAGNOSTIC ALTERATIONS. -- FALLOPIAN TUBES: - ACUTE SALPINGITIS, FIBROSIS AND DILATION (LEFT). - BENIGN PARATUBAL CYSTS (RIGHT). - NO MALIGNANCY IDENTIFIED. (RLF:narayan) PROCEDURAL IMPRESSION Diverticulitis; abscess. GROSS DESCRIPTION Specimen A: Received in formalin labeled sigmoid colon, is a segment of colon closed at both ends with staple lines. The serosal surface is dusky purple-brown with a small amount of attached fatty tissue up to 2.5 cm. There is a small possible perforation with surrounding hemorrhage that measures 0.8 cm in length. Upon opening, the interior is filled with fecal material and the wall is firm and thickened up to 1.2 cm. There are multiple diverticula present. No mucosal mass lesions are identified. Plastic Process Technician sections submitted as follows: A1 - margins; A2 - section showing purple-brown serosal surface discoloration; A3 - sections of diverticula; A4 - section of possible perforation. Specimen B: Received in formalin labeled uterus, cervix, bilateral fallopian tubes, bilateral ovaries, is a hysterectomy specimen with attached right ovary and fallopian tube and a separate possible ovary and fallopian tube in the container. The specimen measures 11.5 cm from fundus to cervix, 6.5 cm cornu to cornu and 3 cm anterior to posterior. The ectocervix is white-deluca with hemorrhagic regions and measures 2.9 x 2 cm with a centrally placed 2 cm in length os. The serosal surface is white-deluca to purple-deluca and smooth. Upon opening, the endometrial cavity is dilated and has white-deluca surface exudate. The cavity measures up to 7 x 4.5 x 0.5 cm posteriorly and 7.5 x 4 x 1.2 cm anteriorly. On cross section, it is difficult to discern endometrium and myometrium; the combined thickness is up to 1.4 cm. The attached ovary is white-deluca and measures 1.5 x 0.8 x 0.8 cm. No gross lesions are identified. The attached fallopian tube has a fimbriated end and measures 6 cm in length by 0.7 cm in diameter. There are multiple attached thin walled clear fluid-filled cysts ranging in maximum dimension from 0.1 to 0.4 cm. The separate possible ovary has hemorrhagic deluca-purple surface and measures 6 x 2.5 x 2 cm. On cross section it is white-deluca with a irregular cyst cavity filled with hemorrhagic material. The cavity diameter measures up to 2 cm. The separate possible fallopian tube has deluca-purple hemorrhagic surface without fimbriated end and measures 2.5 cm in length by 0.8 cm in diameter. Plastic Process Technician sections submitted as follows: B1 - anterior and posterior cervix with parametrial shaving; B2 - anterior endomyometrium; B3 - posterior endomyometrium; B4 - attached ovary and fallopian tube; B5-B6 - detached possible ovary; B7 - detached possible fallopian tube. (RLF:adj) Electronically Signed by: Lisa Alvarez M.D.
--- NOTE | 2019-05-12 16:48 | General Surgery Progress Note ---
Subjective Patient reports: feels better, pain is less, tolerating liquids well, flatus, afebrile Narrative: Note initiated : 05/12/19 at 4:46 pm Service Date, if different from initiated Date: [] Patient: Melody Dong 83 y/o F admitted on 05/08/19 for Left Lower Abd Pain. Chief Complaint: [Patient is improved. She's been afebrile. Her pain is significantly improved. She still has a small amount of vaginal drainage. Discussed pathology findings with the clinical pathologist and the final path suggests diverticulitis with secondary infection of left tube leaving to infection of the uterus with uterine abscess. No carcinoma is seen. The patient is informed of the findings. White blood count 21.5, hemoglobin 13.7, phosphorus 1.5, magnesium 1.7.] Objective Temp Pulse Resp BP Pulse Ox 97.7 F 99 H 18 117/61 99 05/12/19 16:01 05/12/19 14:00 05/12/19 16:01 05/12/19 16:01 05/12/19 16:01 - Additional Data Intake & Output - Last 24 hours: Intake & Output 05/10/19 05/11/19 05/12/19 05/13/19 05:59 05:59 05:59 05:59 Intake Total 3834 2580 2934.0909 1860 Output Total 1930 1490 1078 1125 Balance 1904 1090 1856.0909 735 Weight 94 lb 6.4 oz 96 lb 12.8 oz 101 lb 14.4 oz - General physical appearance moderate distress, moderate pain, cachectic, chronically ill - Eyes PERRL, normal ocular movement - ENT normal pinna, normal nares, normal mucosa, no hearing loss, no congestion - Neck no masses, no bruits, trachea midline, no lymphadenopathy, no venous distension - Respiratory normal expansion, normal respiratory effort, clear to auscultation - Cardiovascular Cardiovascular exam: Present: normal rate and rhythm, RRR, +S1, +S2. Absent: JVD, tachycardia - Abdomen tender (still with moderate tenderness to palpation; incision looks good. Stoma is beginning to work; good active bowel sounds) - Integumentary no rash, no growths, no abnormal pigmentation - Neurologic normal coordination, normal sensation - Musculoskeletal normal gait, normal posture - Psychiatric oriented to time, oriented to person, oriented to place, speech is normal, memory intact - Labs 05/12/19 04:00 05/12/19 04:00 Diabetes panel 05/12/19 Range/Units 04:00 Sodium 133 (133-145) mmol/L Potassium 3.6 (3.3-5.1) mmol/L Chloride 96 (96-108) mmol/L Carbon Dioxide 27 (22-30) mmol/L BUN 9 (8-23) mg/dl Creatinine 0.4 L (0.6-1.1) mg/dl Glucose 140 H (70-105) mg/dL Calcium 8.2 L (8.6-10.4) mg/dl AST 14 (0-37) U/l ALT 7 (0-40) U/l Alkaline Phosphatase 125 H (39-117) U/L Total Protein 4.9 L (5.9-8.4) gm/dL Albumin 2.3 L (3.2-5.2) gm/dL Triglycerides 100 (<150) mg/dl Calcium panel 05/12/19 Range/Units 04:00 Calcium 8.2 L (8.6-10.4) mg/dl Phosphorus 1.5 L (2.7-4.5) mg/dL Albumin 2.3 L (3.2-5.2) gm/dL Pituitary panel 05/12/19 Range/Units 04:00 Sodium 133 (133-145) mmol/L Potassium 3.6 (3.3-5.1) mmol/L Chloride 96 (96-108) mmol/L Carbon Dioxide 27 (22-30) mmol/L BUN 9 (8-23) mg/dl Creatinine 0.4 L (0.6-1.1) mg/dl Glucose 140 H (70-105) mg/dL Calcium 8.2 L (8.6-10.4) mg/dl Adrenal panel 05/12/19 Range/Units 04:00 Sodium 133 (133-145) mmol/L Potassium 3.6 (3.3-5.1) mmol/L Chloride 96 (96-108) mmol/L Carbon Dioxide 27 (22-30) mmol/L BUN 9 (8-23) mg/dl Creatinine 0.4 L (0.6-1.1) mg/dl Glucose 140 H (70-105) mg/dL Calcium 8.2 L (8.6-10.4) mg/dl Total Bilirubin 0.4 (0.0-1.0) mg/dL AST 14 (0-37) U/l ALT 7 (0-40) U/l Alkaline Phosphatase 125 H (39-117) U/L Total Protein 4.9 L (5.9-8.4) gm/dL Albumin 2.3 L (3.2-5.2) gm/dL Assessment and Plan (1) Acute abscess of female pelvis Status: Acute Assessment and plan: Replace phosphorus and magnesium Start MiraLAX one glass 3 times daily to try to emulsify the hard stool that is in her colon Current Visit: Yes (2) Acute diverticulitis of intestine Status: Acute Assessment and plan: Continue IV antibiotics Current Visit: Yes (3) Sepsis Status: Acute Current Visit: Yes - Time Spent With Patient Total time spent is greater than 50% in coordination of care (as documented) at patient's floor/unit and/or counseling patient:
[2019-05-12] MEDS ORDERED: MAGNESIUM SULFATE 32.48 MEQ in DEXTROSE 5% IN WATER 50 ML IV ONE (16:50)
[2019-05-12] MEDS ORDERED: MAGNESIUM SULFATE 4 GM/100 ML BAG IV ONE (17:00)
[2019-05-12] MEDS ORDERED: POTASSIUM PHOSPHATE 40 MEQ in DEXTROSE 5% IN WATER 500 ML IV SCH (17:30)
[2019-05-12] MEDS ORDERED: HEPARIN 5,000 UNIT/ML VIAL SQ ONE (17:31)
[2019-05-12] MEDS: ACETAMINOPHEN 600 MG/60 ML BOTTLE IV PRN (20:26)
[2019-05-13] MEDS: ACETAMINOPHEN 600 MG/60 ML BOTTLE IV PRN ×3 (02:06→20:10)
[2019-05-13] MEDS: MEPERIDINE 50 MG/ML INJECTION IV PRN ×4 (03:25→18:29)
[2019-05-13] MEDS: metroNIDAZOLE 500 MG/100 ML BAG IV SCH ×3 (05:53→21:29)
[2019-05-13] MEDS: METOCLOPRAMIDE 10 MG/2 ML VIAL IV SCH ×4 (05:53→23:26)
[2019-05-13] MEDS: 0.9 % SODIUM CHLORIDE 10 ML SYRINGE IV SCH ×5 (05:54→20:12)
[2019-05-13 06:00] LABS: Hematocrit 43.6 % (36.0-48.0); Hemoglobin 13.9 g/dL (12.0-15.0); Mean Cell Volume 88.8 fL (80.0-100.0); Mean Corpuscular HGB Conc 31.9 g/dL (31.0-36.0); Mean Platelet Volume 6.9 fL (7.4-10.4); Platelet Count 560 K/mcL (140-440); RBC 4.91 M/mcL (4.00-5.20); Red Cell Distribution Width 18.6 % (11.5-14.5); WBC 17.2 K/mcL (4.5-11.0)
[2019-05-13] MEDS: INSULIN LISPRO 1 UNIT/0.01 ML UNIT SQ SCH ×4 (06:11→23:37)
[2019-05-13 06:26] LABS: ALT/SGPT 7 U/l (0-40); AST/SGOT 11 U/l (0-37); Albumin 2.2 gm/dL (3.2-5.2); Albumin/Globulin Ratio 0.8 (1.0-2.3); Alkaline Phosphatase 107 U/L (39-117); Bilirubin,Direct < 0.2 mg/dL (0.0-0.3); Bilirubin,Total 0.4 mg/dL (0.0-1.0); Blood Urea Nitrogen 6 mg/dl (8-23); Calcium 8.1 mg/dl (8.6-10.4); Carbon Dioxide 29 mmol/L (22-30); Chloride 96 mmol/L (96-108); Globulin 2.7 gm/dL (2.2-3.7); Glomerular Filtration Rate 91; Glucose 117 mg/dL (70-105); Lactate Dehydrogenase 151 U/L (94-250); Phosphorous 2.2 mg/dL (2.7-4.5); Triglycerides 100 mg/dl (<150); Uric Acid 2.7 mg/dL (2.5-8.0)
[2019-05-13 06:48] LABS: Anisocytosis 1+ (NONE SEEN); Band Neutrophils % 3 % (0-10); Lymphocytes % 6 % (15-49); Monocytes % (Manual) 2 % (1-12); Platelet Estimate INCREASED (NORMAL); RBC Morphology ABNORM (NORMAL); Segmented Neutrophils % 89 % (38-78)
[2019-05-13] MEDS: DEXTROSE 5% IN WATER 1,000 ML IV SCH ×2 (07:32→11:21)
[2019-05-13] MEDS: ESOMEPRAZOLE 40 MG VIAL IV SCH (07:33)
[2019-05-13] MEDS: LEVOTHYROXINE 100 MCG VIAL IV SCH (07:33)
[2019-05-13] MEDS ORDERED: POTASSIUM CHLORIDE 20 MEQ in DEXTROSE 5% IN WATER 250 ML IV ONE (08:04)
--- NOTE | 2019-05-13 08:06 | Internal Med Progress Note ---
Medical - PN: Subj Patient information: Note initiated : 05/13/19 at 7:58 am Service Date, if different from initiated Date: [] Patient: Melody Dong 83 y/o F admitted on 05/08/19 for Left Lower Abd Pain. Chief Complaint: [] Interval history: Ms. Dong is a 83 year old extremely frail looking female presented to the ER with progressive weakness along with lower abdominal pain that started started a few months ago. She continued to ignore her symptoms failing to realize the progression did not seek medical attention. Symptoms were associated with occasional nausea/abdominal distention and intermittent constipation. Pain is described as 4 out of 10 to 8 out of 10 cramping lower abdominal without radiat ion and without associated blood in stool or change in stool caliber. Patient was recently evaluate by her primary care physician. She was found to have an elevated white count. She was referred to the ER where initial work-up was consistent with sigmoid diverticulitis with perisigmoid abscess measuring 9 and 5 cm. White count 19,000 along with pyuria. Subsequently surgery was consulted. Patient was started on antibiotic after blood cultures were drawn. Hospitalist service was consulted to consider admission while patient will undergo surgical intervention in 24 hours. At the time of evaluation patient is alert and oriented. She was able to endorse history as above. She denies prior similar episodes or abdominal surgery or history of diverticulitis. She denies drenching sweats, shaking chills or fever but endorses fatigue lethargic and loss of appetite. She denies bloody stool. She denies associated weight loss 05/09-patient currently n.p.o. No overnight events. White count downtrending. On antibiotic coverage. Due for surgery at noon. No family at bedside. No other concerns expressed to nursing staff. 05/10 Status post major bowel surgery yesterday with colectomy and colostomy and total abdominal hysterectomy with bilateral salpingo-oophorectomy. Feeling comfortable this morning. No new complaints and did okay overnight. 05/11 Some pain control last night so had poor sleep but pain control better this morning. Has a little bit of nausea and some abdominal pain otherwise no new complaints. 05/12 Patient is drowsy on my examination after getting pain medication. She states she had poor sleep last night because of noise. She has abdominal pain. No chest pain coughing shortness of breath. 05/13 Having more abdominal pain is morning. No ostomy output. Feels little feverish. Poor sleep again. Occasional cough, no shortness of breath. Review of Systems: denies headache/chills/vomiting/chest pain/dyspnea/diarrhea. Otherwise see above. - Constitutional Vitals: Vital Signs Temp Pulse Resp BP Pulse Ox 96.8 F L 89 18 110/72 95 05/13/19 04:01 05/13/19 02:00 05/13/19 04:01 05/13/19 06:01 05/13/19 06:01 Period Temp Pulse Resp BP Sys/Nunez Pulse Ox Last 24 Hr 96.8 F-98.5 F 89-99 16-22 92-131/56-88 94-100 Intake and Output 05/12/19 05/13/19 05/13/19 21:59 05:59 13:59 Intake Total 4493 424 6005 Output Total 1722 725 80 Balance -152 -625 1280 Weight 46.408 kg Intake & Output: Intake & Output 05/12/19 05/13/19 05/13/19 21:59 05:59 13:59 Intake Total 9380 604 2534 Output Total 1722 725 80 Balance -152 -625 1280 Weight 46.408 kg Intake: IV 6516 982 6776 Dextrose 5% in Water 1,000 ml @ 1000 1000 70 mls/hr IV .[id number] [facility] Rx#: [id number] Sodium Phosphate 30 Mmol In 510 Dextrose 5% in Water 500 ml @ 85 mls/hr IV ONCE ONE Rx#: [id number] Output: Drainage 105 30 Abdomen AMARILYS Drain 105 30 Urine Catheter Amount 1619 695 80 Other: Urine Appearance Cloudy Uretheral (Real) Cloudy Urine Color Pale Bright Yellow Bright Yellow Uretheral (Real) Dark Yellow Pale Urine Odor Normal Uretheral (Real) Normal Stool Consistency Liquid Exam: General: Alert, Awake, No acute Distress Eyes/N/T: EOMI, Head/Neck: neck supple, CV: RRR, No murmurs, Pulm: Clear b/l, no wheezing/rhonchi/rales Abd: soft, generalized TTP, colostomy in place no outpt, hypoactive BS Ext: no clubbing/cyanosis/edema Neuro: Alert, no focal deficits, moves all extremities, Skin: warm/dry Medical - PN: Obj Da - Labs CBC & Chem 7: 05/13/19 04:00 05/13/19 04:00 Labs: Abnormal Lab Results 05/13/19 05/13/19 05/12/19 04:00 04:00 04:00 WBC 17.2 H RDW 18.6 H Plt Count 560 H MPV 6.9 L Seg Neutrophils % 89 H Band Neutrophils % Lymphocytes % 6 L Myelocytes % RBC Morphology Abnorm A Anisocytosis 1+ A Potassium 3.2 L Carbon Dioxide BUN 6 L Creatinine 0.5 L 0.4 L Glucose 117 H 140 H Calcium 8.1 L 8.2 L Phosphorus 2.2 L 1.5 L GGT 47 H 51 H Alkaline Phosphatase 125 H Total Protein 4.9 L 4.9 L Albumin 2.2 L 2.3 L Albumin/Globulin Ratio 0.8 L 0.9 L 05/12/19 05/11/19 05/11/19 04:00 04:00 04:00 WBC 21.5 H 22.3 H RDW 18.3 H 18.2 H Plt Count 556 H 511 H MPV 6.7 L 6.6 L Seg Neutrophils % 90 H Band Neutrophils % 14 H Lymphocytes % 3 L 4 L Myelocytes % RBC Morphology Abnorm A Abnorm A Anisocytosis 1+ A 1+ A Potassium Carbon Dioxide 21 L BUN Creatinine 0.5 L Glucose 59 L Calcium 8.5 L Phosphorus 1.9 L GGT 52 H Alkaline Phosphatase 130 H Total Protein 4.8 L Albumin 2.3 L Albumin/Globulin Ratio 0.9 L 05/10/19 04:00 WBC RDW Plt Count MPV Seg Neutrophils % 87 H Band Neutrophils % Lymphocytes % 3 L Myelocytes % 2 H RBC Morphology Abnorm A Anisocytosis Few A Potassium Carbon Dioxide BUN Creatinine Glucose Calcium Phosphorus GGT Alkaline Phosphatase Total Protein Albumin Albumin/Globulin Ratio Meds: Medications Acetaminophen (Tylenol) 650 mg PO Q4-6HP PRN PRN Reason: PAIN/FEVER > 101 Last Admin: 05/12/19 10:13 Dose: 650 mg Documented by: Dextrose (Dextrose 50%) 0 ml IV UD PRN PRN Reason: Hypoglycemia Diagnostic Test (Pha) (Accu-Chek) 1 each FS Q6 [facility] Last Admin: 05/13/19 05:53 Dose: 1 each Documented by: Esomeprazole Magnesium (Nexium) 40 mg IV QAMAC [facility] Last Admin: 05/13/19 07:33 Dose: 40 mg Documented by: Glucose (Insta-Glucose) 15 gm PO PRN PRN PRN Reason: Hypoglycemia Heparin Sodium (Porcine) (Heparin) 5,000 unit SQ Q12 [facility] Hydralazine HCl (Apresoline) 10 mg IV Q4-6HP PRN PRN Reason: Hypertension Magnesium Sulfate (Magnesium Sulfate) 2 gm in 50 mls @ 50 mls/hr IV UD PRN PRN Reason: MG = or < 1.7 Last Infusion: 05/12/19 09:00 Dose: Infused Documented by: Metronidazole (Flagyl) 500 mg in 100 mls @ 100 mls/hr IV Q8H [facility] Last Infusion: 05/13/19 07:50 Dose: Infused Documented by: Acetaminophen (Ofirmev) 600 mg in 60 mls @ 120 mls/hr IV Q6HP PRN PRN Reason: Pain Last Infusion: 05/13/19 07:52 Dose: Infused Documented by: Dextrose (Dextrose 5% In Water) 1,000 mls @ 70 mls/hr IV .[id number] [facility] Last Admin: 05/13/19 07:32 Dose: 750 mls/hr Documented by: Ciprofloxacin (Cipro) 400 mg in 200 mls @ 200 mls/hr IV Q12H [facility]; Protocol Last Infusion: 05/13/19 07:39 Dose: Infused Documented by: Insulin Human Lispro (Humalog) 0 unit SQ Q6 [facility]; Protocol Last Admin: 05/13/19 06:11 Dose: Not Given Documented by: Levothyroxine Sodium (Synthroid) 25 mcg IV ACB [facility] Last Admin: 05/13/19 07:33 Dose: 25 mcg Documented by: Meperidine HCl (Demerol) 25 - 37.5 mg IV Q2H PRN PRN Reason: PAIN LEVEL > 6 Last Admin: 05/13/19 07:30 Dose: 25 mg Documented by: Metoclopramide HCl (Reglan) 10 mg IV Q6 [facility] Last Admin: 05/13/19 05:53 Dose: 10 mg Documented by: Metoprolol Tartrate (Lopressor) 5 mg IV Q2HP PRN PRN Reason: Tachyarrhythmias HR>110 Last Admin: 05/12/19 12:18 Dose: 5 mg Documented by: Ondansetron HCl (Zofran) 4 mg IV Q4-6HP PRN PRN Reason: Nausea And Vomiting Last Admin: 05/11/19 15:20 Dose: 4 mg Documented by: Promethazine HCl (Phenergan) 6.25 mg IV Q4HP PRN PRN Reason: Nausea And Vomiting Last Admin: 05/12/19 17:15 Dose: 6.25 mg Documented by: Sodium Chloride (Saline Flush) 10 ml IV Q8 [facility] Last Admin: 05/13/19 05:54 Dose: 10 ml Documented by: Sodium Chloride (Saline Flush) 10 ml IV Q12 [facility] Last Admin: 05/12/19 21:39 Dose: Not Given Documented by: Sodium Chloride (Saline Flush) 10 ml IV UD PRN PRN Reason: protocol Medical - PN: A/P - Time Spent With Patient Total time spent is greater than 50% in coordination of care (as documented) at patient's floor/unit and/or counseling patient: - Narrative A/P Narrative: A: *Acute sigmoid diverticulitis w/perisigmoid abscess: s/p Left colectomy w/colostomy & hartmans pouch, [facility] (05/09) -no ostomy outpt, clinically no improvement yet -Wound Cx's growing Klebsiella *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 improved -WBC slowly improving, Stable hemodynamics *Thrombocytosis: reactive, monitor *Neuropathy: home gabapentin/amitriptyline *h/o migraine: no acute flare *Hypothyroidism: on thyroxine *GERD *Hypophos/víctor: Plan: -Dr. Cuellar following -f/u imaging per Surg -diet advancement per Surgery -cont cipro/flagyl; pending final cx's -pain control -IVF's while NPO -replete electrolytes -IS -pt/ot -ppx: heparin/ppi full code Medical - PN: Qual - VTE Deep Vein Thrombosis/Pulmonary Embolism Present on Admission: No
[2019-05-13] MEDS ORDERED: DEXTROSE 5%-1/2NS W/20MEQ KCL 1,000 ML IV SCH (08:15)
[2019-05-13] MEDS: CIPROFLOXACIN 400 MG/200 ML BAG IV SCH ×2 (10:08→20:12)
[2019-05-13] MEDS: DEXTROSE 5%-1/2NS W/20MEQ KCL 1,000 ML IV SCH (10:32)
[2019-05-13] MEDS: METOPROLOL TARTRATE 5 MG/5 ML VIAL IV SCH ×2 (10:33→17:20)
[2019-05-13] MEDS: HEPARIN 5,000 UNIT/ML VIAL SQ SCH ×2 (10:35→20:14)
--- NOTE | 2019-05-13 14:50 | General Surgery Progress Note ---
Subjective Patient reports: feels better, pain is less, flatus, diarrhea, afebrile Narrative: Note initiated : 05/13/19 at 2:47 pm Service Date, if different from initiated Date: [] Patient: Melody Dong 83 y/o F admitted on 05/08/19 for Left Lower Abd Pain. Chief Complaint: [Patient states that she feels better. She appeared to be weaker this morning but appears fine at this time. She's been afebrile. Her pain is under control. White blood count is decreased to 17.2, hemoglobin 13.9, potassium 3.2, phosphorus 2.2, BUN 6, creatinine 0.5. Urine output has increased as anticipated.] Objective Temp Pulse Resp BP Pulse Ox 97.5 F 89 20 114/52 99 05/13/19 08:01 05/13/19 02:00 05/13/19 08:01 05/13/19 13:01 05/13/19 09:01 - Additional Data Intake & Output - Last 24 hours: Intake & Output 05/11/19 05/12/19 05/13/19 05/14/19 05:59 05:59 05:59 05:59 Intake Total 2580 2934.0909 2020 1880 Output Total 1490 1078 2747 610 Balance 1090 1856.0909 -727 1270 Weight 96 lb 12.8 oz 101 lb 14.4 oz 102 lb 5 oz - General physical appearance moderate pain, cachectic, chronically ill - Eyes PERRL, normal ocular movement - ENT normal pinna, normal nares, normal mucosa, no hearing loss, no congestion - Neck no masses, no bruits, trachea midline, no lymphadenopathy, no venous distension - Respiratory normal expansion, normal respiratory effort, clear to auscultation - Cardiovascular Cardiovascular exam: Present: normal rate and rhythm, RRR, +S1, +S2. Absent: bradycardia, tachycardia - Abdomen tender (mild incisional tenderness; active bowel sounds; stoma looks good and is functioning), bowel sounds (present), surgical scars (none), masses (none) Hernia: none - Integumentary no rash, no growths, no abnormal pigmentation - Neurologic normal coordination, normal sensation - Musculoskeletal normal gait, normal posture - Psychiatric oriented to time, oriented to person, oriented to place, speech is normal, memory intact - Labs 05/13/19 04:00 05/13/19 04:00 Diabetes panel 05/13/19 Range/Units 04:00 Sodium 136 (133-145) mmol/L Potassium 3.2 L (3.3-5.1) mmol/L Chloride 96 (96-108) mmol/L Carbon Dioxide 29 (22-30) mmol/L BUN 6 L (8-23) mg/dl Creatinine 0.5 L (0.6-1.1) mg/dl Glucose 117 H (70-105) mg/dL Calcium 8.1 L (8.6-10.4) mg/dl AST 11 (0-37) U/l ALT 7 (0-40) U/l Alkaline Phosphatase 107 (39-117) U/L Total Protein 4.9 L (5.9-8.4) gm/dL Albumin 2.2 L (3.2-5.2) gm/dL Triglycerides 100 (<150) mg/dl Calcium panel 05/13/19 Range/Units 04:00 Calcium 8.1 L (8.6-10.4) mg/dl Phosphorus 2.2 L (2.7-4.5) mg/dL Albumin 2.2 L (3.2-5.2) gm/dL Pituitary panel 05/13/19 Range/Units 04:00 Sodium 136 (133-145) mmol/L Potassium 3.2 L (3.3-5.1) mmol/L Chloride 96 (96-108) mmol/L Carbon Dioxide 29 (22-30) mmol/L BUN 6 L (8-23) mg/dl Creatinine 0.5 L (0.6-1.1) mg/dl Glucose 117 H (70-105) mg/dL Calcium 8.1 L (8.6-10.4) mg/dl Adrenal panel 05/13/19 Range/Units 04:00 Sodium 136 (133-145) mmol/L Potassium 3.2 L (3.3-5.1) mmol/L Chloride 96 (96-108) mmol/L Carbon Dioxide 29 (22-30) mmol/L BUN 6 L (8-23) mg/dl Creatinine 0.5 L (0.6-1.1) mg/dl Glucose 117 H (70-105) mg/dL Calcium 8.1 L (8.6-10.4) mg/dl Total Bilirubin 0.4 (0.0-1.0) mg/dL AST 11 (0-37) U/l ALT 7 (0-40) U/l Alkaline Phosphatase 107 (39-117) U/L Total Protein 4.9 L (5.9-8.4) gm/dL Albumin 2.2 L (3.2-5.2) gm/dL Assessment and Plan (1) Acute abscess of female pelvis Status: Acute Assessment and plan: Replace phosphorus and magnesium Start MiraLAX one glass 3 times daily to try to emulsify the hard stool that is in her colon Current Visit: Yes (2) Acute diverticulitis of intestine Status: Acute Assessment and plan: Continue IV antibiotics Current Visit: Yes (3) Sepsis Status: Acute Current Visit: Yes - Time Spent With Patient Total time spent is greater than 50% in coordination of care (as documented) at patient's floor/unit and/or counseling patient:
[2019-05-13] MEDS: POLYETHYLENE GLYCOL 3350 17 GM PACKET PO SCH ×2 (15:23→20:10)
[2019-05-13] MEDS: MAGNESIUM SULFATE 2 GM/50 ML BAG IV PRN (17:41)
[2019-05-13] MEDS ORDERED: MELATONIN 3 MG TABLET PO SCH (21:00)
[2019-05-13] MEDS ORDERED: diphenhydrAMINE 50 MG/ML VIAL IV PRN (21:00)
[2019-05-13] MEDS: PROMETHAZINE 25 MG/ML VIAL IV PRN (21:32)
[2019-05-14] MEDS: DEXTROSE 5%-1/2NS W/20MEQ KCL 1,000 ML IV SCH ×3 (00:32→19:50)
[2019-05-14] MEDS: MEPERIDINE 50 MG/ML INJECTION IV PRN ×7 (01:06→21:48)
[2019-05-14] MEDS: METOPROLOL TARTRATE 5 MG/5 ML VIAL IV SCH ×2 (01:09→10:20)
[2019-05-14] MEDS: POLYETHYLENE GLYCOL 3350 17 GM PACKET PO SCH ×4 (02:49→21:53)
[2019-05-14] MEDS: INSULIN LISPRO 1 UNIT/0.01 ML UNIT SQ SCH ×3 (05:33→21:50)
[2019-05-14] MEDS: metroNIDAZOLE 500 MG/100 ML BAG IV SCH ×3 (05:34→22:01)
[2019-05-14] MEDS: METOCLOPRAMIDE 10 MG/2 ML VIAL IV SCH ×3 (05:34→18:01)
[2019-05-14] MEDS: 0.9 % SODIUM CHLORIDE 10 ML SYRINGE IV SCH ×3 (05:34→22:07)
[2019-05-14] MEDS: PROMETHAZINE 25 MG/ML VIAL IV PRN (05:36)
[2019-05-14 05:57] LABS: Basophils # (Auto) 0 K/mcL (0.0-0.3); Basophils % (Auto) 0.2 % (0.0-2.0); Eosinophils # (Auto) 0.2 K/mcL (0.0-0.7); Eosinophils % (Auto) 1.5 % (0.0-7.0); Granulocytes % (Auto) 82.5 % (38.0-78.0); Hematocrit 40.1 % (36.0-48.0); Lymphocytes # (Auto) 1.1 K/mcL (1.5-4.8); Lymphocytes % (Auto) 9.2 % (15.5-49.0); Mean Cell Volume 88.3 fL (80.0-100.0); Mean Corpuscular HGB Conc 32.3 g/dL (31.0-36.0); Monocytes # (Auto) 0.8 K/mcL (0.1-0.9); Monocytes % (Auto) 6.6 % (1.0-12.0); Platelet Count 515 K/mcL (140-440); RBC 4.54 M/mcL (4.00-5.20); Red Cell Distribution Width 18.8 % (11.5-14.5); WBC 12.2 K/mcL (4.5-11.0)
[2019-05-14 06:41] LABS: Blood Urea Nitrogen 6 mg/dl (8-23); Carbon Dioxide 28 mmol/L (22-30); Chloride 101 mmol/L (96-108); Glomerular Filtration Rate 107; Glucose 87 mg/dL (70-105)
--- NOTE | 2019-05-14 07:33 | Internal Med Progress Note ---
Medical - PN: Subj Patient information: Note initiated : 05/14/19 at 7:19 am Service Date, if different from initiated Date: [] Patient: Melody Dong 83 y/o F admitted on 05/08/19 for Left Lower Abd Pain. Chief Complaint: [] Interval history: Ms. Dong is a 83 year old extremely frail looking female presented to the ER with progressive weakness along with lower abdominal pain that started started a few months ago. She continued to ignore her symptoms failing to realize the progression did not seek medical attention. Symptoms were associated with occasional nausea/abdominal distention and intermittent constipation. Pain is described as 4 out of 10 to 8 out of 10 cramping lower abdominal without radiat ion and without associated blood in stool or change in stool caliber. Patient was recently evaluate by her primary care physician. She was found to have an elevated white count. She was referred to the ER where initial work-up was consistent with sigmoid diverticulitis with perisigmoid abscess measuring 9 and 5 cm. White count 19,000 along with pyuria. Subsequently surgery was consulted. Patient was started on antibiotic after blood cultures were drawn. Hospitalist service was consulted to consider admission while patient will undergo surgical intervention in 24 hours. At the time of evaluation patient is alert and oriented. She was able to endorse history as above. She denies prior similar episodes or abdominal surgery or history of diverticulitis. She denies drenching sweats, shaking chills or fever but endorses fatigue lethargic and loss of appetite. She denies bloody stool. She denies associated weight loss 05/09-patient currently n.p.o. No overnight events. White count downtrending. On antibiotic coverage. Due for surgery at noon. No family at bedside. No other concerns expressed to nursing staff. 05/10 Status post major bowel surgery yesterday with colectomy and colostomy and total abdominal hysterectomy with bilateral salpingo-oophorectomy. Feeling comfortable this morning. No new complaints and did okay overnight. 05/11 Some pain control last night so had poor sleep but pain control better this morning. Has a little bit of nausea and some abdominal pain otherwise no new complaints. 05/12 Patient is drowsy on my examination after getting pain medication. She states she had poor sleep last night because of noise. She has abdominal pain. No chest pain coughing shortness of breath. 05/13 Having more abdominal pain is morning. No ostomy output. Feels little feverish. Poor sleep again. Occasional cough, no shortness of breath. 05/14 Poor sleep again last night, feeling tired. Sitting up in the chair. She started to have good ostomy output overnight and her white blood cell counts dramatically improved. Abdominal pain improved. Review of Systems: denies headache/chills/vomiting/chest pain/dyspnea/diarrhea. Otherwise see above. - Constitutional Vitals: Vital Signs Temp Pulse Resp BP Pulse Ox 99.4 F H 76 20 119/65 100 05/14/19 04:01 05/14/19 02:00 05/14/19 06:01 05/14/19 06:01 05/14/19 06:01 Period Temp Pulse Resp BP Sys/Nunez Pulse Ox Last 24 Hr 97.2 F-99.4 F 76 18-22 84-129/48-79 94-100 Intake and Output 05/13/19 05/14/19 05/14/19 21:59 05:59 13:59 Intake Total 500 1340 Output Total 920 860 Balance -420 480 Weight 47.259 kg Intake & Output: Intake & Output 05/13/19 05/14/19 05/14/19 21:59 05:59 13:59 Intake Total 500 1340 Output Total 920 860 Balance -420 480 Weight 47.259 kg Intake: IV 260 1100 Dextrose 5%-1/2Ns W/20Meq KCl 1 1000 ,000 ml @ 75 mls/hr IV .[id number] [facility] Rx#:[id number] Oral 240 240 Output: Drainage 80 Abdomen AMARILYS Drain 80 Urine Catheter Amount 920 780 Other: Urine Appearance Clear Uretheral (Real) Clear Clear Urine Color Dark Yellow Dark Yellow Uretheral (Real) Bright Yellow Dark Yellow Stool Size Smear Smear Stool Color Brown Brown Stool Consistency Liquid Liquid Exam: General: Alert, Awake, No acute Distress Eyes/N/T: EOMI, Head/Neck: neck supple, CV: RRR, No murmurs, Pulm: Clear b/l, no wheezing/rhonchi/rales Abd: soft, generalized TTP improved, colostomy in place good outpt, + BS Ext: no clubbing/cyanosis/edema Neuro: Alert, no focal deficits, moves all extremities, Skin: warm/dry Medical - PN: Obj Da - Labs CBC & Chem 7: 05/14/19 04:05 05/14/19 04:05 Labs: Abnormal Lab Results 05/14/19 05/14/19 05/13/19 04:05 04:05 04:00 WBC 12.2 H RDW 18.8 H Plt Count 515 H MPV 7.0 L Gran % 82.5 H Lymph % (Auto) 9.2 L Gran # 10.1 H Lymph # (Auto) 1.1 L Seg Neutrophils % Band Neutrophils % Lymphocytes % RBC Morphology Anisocytosis Potassium 3.2 L BUN 6 L 6 L Creatinine 0.3 L 0.5 L Glucose 117 H Calcium 8.0 L 8.1 L Phosphorus 2.2 L GGT 47 H Alkaline Phosphatase Total Protein 4.9 L Albumin 2.2 L Albumin/Globulin Ratio 0.8 L 05/13/19 05/12/19 05/12/19 04:00 04:00 04:00 WBC 17.2 H 21.5 H RDW 18.6 H 18.3 H Plt Count 560 H 556 H MPV 6.9 L 6.7 L Gran % Lymph % (Auto) Gran # Lymph # (Auto) Seg Neutrophils % 89 H Band Neutrophils % 14 H Lymphocytes % 6 L 3 L RBC Morphology Abnorm A Abnorm A Anisocytosis 1+ A 1+ A Potassium BUN Creatinine 0.4 L Glucose 140 H Calcium 8.2 L Phosphorus 1.5 L GGT 51 H Alkaline Phosphatase 125 H Total Protein 4.9 L Albumin 2.3 L Albumin/Globulin Ratio 0.9 L 05/11/19 04:00 WBC RDW Plt Count MPV Gran % Lymph % (Auto) Gran # Lymph # (Auto) Seg Neutrophils % 90 H Band Neutrophils % Lymphocytes % 4 L RBC Morphology Abnorm A Anisocytosis 1+ A Potassium BUN Creatinine Glucose Calcium Phosphorus GGT Alkaline Phosphatase Total Protein Albumin Albumin/Globulin Ratio Meds: Medications Acetaminophen (Tylenol) 650 mg PO Q4-6HP PRN PRN Reason: PAIN/FEVER > 101 Last Admin: 05/12/19 10:13 Dose: 650 mg Documented by: Dextrose (Dextrose 50%) 0 ml IV UD PRN PRN Reason: Hypoglycemia Diagnostic Test (Pha) (Accu-Chek) 1 each FS Q6 [facility] Last Admin: 05/14/19 05:33 Dose: 1 each Documented by: Diphenhydramine HCl (Benadryl) 25 mg IV HSP PRN PRN Reason: Allergic Symptoms/insomnia Last Admin: 05/13/19 23:26 Dose: 25 mg Documented by: Esomeprazole Magnesium (Nexium) 40 mg IV QAMAC [facility] Last Admin: 05/13/19 07:33 Dose: 40 mg Documented by: Glucose (Insta-Glucose) 15 gm PO PRN PRN PRN Reason: Hypoglycemia Heparin Sodium (Porcine) (Heparin) 5,000 unit SQ Q12 [facility] Last Admin: 05/13/19 20:14 Dose: 5,000 unit Documented by: Hydralazine HCl (Apresoline) 10 mg IV Q4-6HP PRN PRN Reason: Hypertension Magnesium Sulfate (Magnesium Sulfate) 2 gm in 50 mls @ 50 mls/hr IV UD PRN PRN Reason: MG = or < 1.7 Last Admin: 05/13/19 17:41 Dose: 50 mls/hr Documented by: Metronidazole (Flagyl) 500 mg in 100 mls @ 100 mls/hr IV Q8H [facility] Last Admin: 05/14/19 05:34 Dose: 100 mls/hr Documented by: Acetaminophen (Ofirmev) 600 mg in 60 mls @ 120 mls/hr IV Q6HP PRN PRN Reason: Pain Last Admin: 05/13/19 20:10 Dose: 120 mls/hr Documented by: Ciprofloxacin (Cipro) 400 mg in 200 mls @ 200 mls/hr IV Q12H [facility]; Protocol Last Infusion: 05/13/19 21:00 Dose: 200 mls/hr Documented by: Potassium Chloride/Dextrose/Sod Cl (Dextrose 5%-1/2ns W/20meq Kcl) 1,000 mls @ 75 mls/hr IV .[id number] [facility] Last Admin: 05/14/19 00:32 Dose: 75 mls/hr Documented by: Insulin Human Lispro (Humalog) 0 unit SQ Q6 [facility]; Protocol Last Admin: 05/14/19 05:33 Dose: Not Given Documented by: Levothyroxine Sodium (Synthroid) 25 mcg IV ACB [facility] Last Admin: 05/13/19 07:33 Dose: 25 mcg Documented by: Melatonin (Melatonin 3mg Tablet) 3 mg PO HS [facility] Last Admin: 05/13/19 20:10 Dose: 3 mg Documented by: Meperidine HCl (Demerol) 25 - 37.5 mg IV Q2H PRN PRN Reason: PAIN LEVEL > 6 Last Admin: 05/14/19 04:25 Dose: 25 mg Documented by: Metoclopramide HCl (Reglan) 10 mg IV Q6 [facility] Last Admin: 05/14/19 05:34 Dose: 10 mg Documented by: Metoprolol Tartrate (Lopressor) 5 mg IV Q2HP PRN PRN Reason: Tachyarrhythmias HR>110 Last Admin: 05/12/19 12:18 Dose: 5 mg Documented by: Metoprolol Tartrate (Lopressor) 5 mg IV Q8H [facility] Last Admin: 05/14/19 01:09 Dose: 5 mg Documented by: Ondansetron HCl (Zofran) 4 mg IV Q4-6HP PRN PRN Reason: Nausea And Vomiting Last Admin: 05/11/19 15:20 Dose: 4 mg Documented by: Polyethylene Glycol (Miralax) 17 gm PO Q6H [facility] Stop: 05/15/19 09:01 Last Admin: 05/14/19 02:49 Dose: 17 gm Documented by: Promethazine HCl (Phenergan) 6.25 mg IV Q4HP PRN PRN Reason: Nausea And Vomiting Last Admin: 05/14/19 05:36 Dose: 6.25 mg Documented by: Sodium Chloride (Saline Flush) 10 ml IV Q8 [facility] Last Admin: 05/14/19 05:34 Dose: 10 ml Documented by: Sodium Chloride (Saline Flush) 10 ml IV Q12 [facility] Last Admin: 05/13/19 20:12 Dose: Not Given Documented by: Sodium Chloride (Saline Flush) 10 ml IV UD PRN PRN Reason: protocol Medical - PN: A/P - Time Spent With Patient Total time spent is greater than 50% in coordination of care (as documented) at patient's floor/unit and/or counseling patient: - Narrative A/P Narrative: A: *Acute sigmoid diverticulitis w/perisigmoid abscess: s/p Left colectomy w/colostomy & hartmans pouch (05/09) -no ostomy outpt, clinically no improvement yet -Wound Cx's growing Klebsiella & Strep intermedius -Clinically improving with good ostomy outpt o/n *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 resolved -WBC improving, Stable hemodynamics *Thrombocytosis: reactive, improving *Neuropathy: home gabapentin/amitriptyline *h/o migraine: no acute flare *Hypothyroidism: on thyroxine *GERD *Hypophos/víctor: improved *Multifocal Atrial Tachycardia: Plan: -Dr. Cuellar following -diet advancement per Surgery -IVF's while NPO -cont Rocephin/flagyl; pending final cx's -pain control -IV BB -replete electrolytes -IS -pt/ot -ppx: heparin/ppi full code Medical - PN: Qual - VTE Deep Vein Thrombosis/Pulmonary Embolism Present on Admission: No
[2019-05-14] MEDS: LEVOTHYROXINE 100 MCG VIAL IV SCH (07:46)
[2019-05-14] MEDS: ESOMEPRAZOLE 40 MG VIAL IV SCH (07:46)
[2019-05-14] MEDS ORDERED: cefTRIAXone 2 GM in DEXTROSE 5% IN WATER 50 ML IV SCH (09:00)
[2019-05-14] MEDS: HEPARIN 5,000 UNIT/ML VIAL SQ SCH ×2 (09:12→21:51)
[2019-05-14] MEDS: MAGNESIUM SULFATE 2 GM/50 ML BAG IV PRN (09:13)
[2019-05-14] MEDS: ACETAMINOPHEN 600 MG/60 ML BOTTLE IV PRN ×2 (09:14→19:04)
--- NOTE | 2019-05-14 15:47 | General Surgery Progress Note ---
Subjective Patient reports: feels better, pain is less, tolerating liquids well, flatus, bowel movement, diarrhea, afebrile Narrative: Note initiated : 05/14/19 at 3:45 pm Service Date, if different from initiated Date: [] Patient: Melody Dong 83 y/o F admitted on 05/08/19 for Left Lower Abd Pain. Chief Complaint: [Patient is doing well. Vital signs been stable. She has increased output through her stoma. She denies nausea. White blood count 12.2, hemoglobin 13. Discuss transfer to regular floor with her. Also discussed short-term group home.] Objective Temp Pulse Resp BP Pulse Ox 98.4 F 76 20 134/64 95 05/14/19 12:01 05/14/19 02:00 05/14/19 06:01 05/14/19 14:01 05/14/19 09:06 - Additional Data Intake & Output - Last 24 hours: Intake & Output 05/12/19 05/13/19 05/14/19 05/15/19 05:59 05:59 05:59 05:59 Intake Total 2934.0909 2020 3830 1342 Output Total 1078 2747 2390 395 Balance 1856.0909 -727 1440 947 Weight 101 lb 14.4 oz 102 lb 5 oz 104 lb 3 oz - General physical appearance no distress, cachectic, chronically ill - Eyes PERRL, normal ocular movement - ENT normal pinna, normal nares, normal mucosa, no hearing loss, no congestion - Neck no masses, no bruits, trachea midline, no lymphadenopathy, no venous distension - Respiratory normal expansion, normal respiratory effort, clear to auscultation - Cardiovascular Cardiovascular exam: Present: normal rate and rhythm, RRR, +S1, +S2, systolic murmur. Absent: bradycardia, JVD, tachycardia - Abdomen tender (mild incisional tenderness; good active bowel sounds; stoma looks good and is functioning), bowel sounds (present), surgical scars (none), masses (none) - Integumentary no rash, no growths, no abnormal pigmentation - Neurologic normal coordination, normal sensation - Psychiatric oriented to time, oriented to person, oriented to place, speech is normal, memory intact - Labs 05/14/19 04:05 05/14/19 04:05 Diabetes panel 05/14/19 Range/Units 04:05 Sodium 139 (133-145) mmol/L Potassium 3.6 (3.3-5.1) mmol/L Chloride 101 (96-108) mmol/L Carbon Dioxide 28 (22-30) mmol/L BUN 6 L (8-23) mg/dl Creatinine 0.3 L (0.6-1.1) mg/dl Glucose 87 (70-105) mg/dL Calcium 8.0 L (8.6-10.4) mg/dl Calcium panel 05/14/19 Range/Units 04:05 Calcium 8.0 L (8.6-10.4) mg/dl Pituitary panel 05/14/19 Range/Units 04:05 Sodium 139 (133-145) mmol/L Potassium 3.6 (3.3-5.1) mmol/L Chloride 101 (96-108) mmol/L Carbon Dioxide 28 (22-30) mmol/L BUN 6 L (8-23) mg/dl Creatinine 0.3 L (0.6-1.1) mg/dl Glucose 87 (70-105) mg/dL Calcium 8.0 L (8.6-10.4) mg/dl Adrenal panel 05/14/19 Range/Units 04:05 Sodium 139 (133-145) mmol/L Potassium 3.6 (3.3-5.1) mmol/L Chloride 101 (96-108) mmol/L Carbon Dioxide 28 (22-30) mmol/L BUN 6 L (8-23) mg/dl Creatinine 0.3 L (0.6-1.1) mg/dl Glucose 87 (70-105) mg/dL Calcium 8.0 L (8.6-10.4) mg/dl Assessment and Plan (1) Acute abscess of female pelvis Status: Acute Assessment and plan: Patient is stable for transfer to [facility] floor. Advanced to full liquid diet with ensure Current Visit: Yes (2) Acute diverticulitis of intestine Status: Resolved Assessment and plan: Continue IV antibiotics Current Visit: Yes (3) Sepsis Status: Acute Current Visit: Yes - Time Spent With Patient Total time spent is greater than 50% in coordination of care (as documented) at patient's floor/unit and/or counseling patient:
[2019-05-14] MEDS ORDERED: DEXTROSE 50% 50 ML VIAL IV PRN (16:07)
[2019-05-14] MEDS ORDERED: hydrALAZINE 20 MG/ML VIAL IV PRN (16:07)
[2019-05-14] MEDS ORDERED: ONDANSETRON 4 MG/2 ML VIAL IV PRN (16:07)
[2019-05-14] MEDS ORDERED: PROMETHAZINE 25 MG/ML VIAL IV PRN (16:07)
[2019-05-14] MEDS ORDERED: 0.9 % SODIUM CHLORIDE 10 ML SYRINGE IV PRN (16:07)
[2019-05-14] MEDS ORDERED: ACETAMINOPHEN 325 MG TABLET PO PRN (16:07)
[2019-05-14] MEDS ORDERED: METOPROLOL TARTRATE 5 MG/5 ML VIAL IV PRN (16:07)
[2019-05-14] MEDS ORDERED: DEXTROSE 31 GM ORAL.SUSP PO PRN (16:07)
[2019-05-14] MEDS ORDERED: INSULIN LISPRO 1 UNIT/0.01 ML UNIT SQ SCH (18:00)
[2019-05-14] MEDS ORDERED: METOPROLOL TARTRATE 5 MG/5 ML VIAL IV SCH (18:00)
[2019-05-14] MEDS ORDERED: GABAPENTIN 300 MG CAPSULE PO SCH (21:00)
[2019-05-14] MEDS ORDERED: diphenhydrAMINE 50 MG/ML VIAL IV PRN (21:00)
[2019-05-14] MEDS ORDERED: AMITRIPTYLINE 25 MG TABLET PO SCH (21:00)
[2019-05-14] MEDS: MELATONIN 3 MG TABLET PO SCH (21:52)
[2019-05-14] MEDS: METOPROLOL TARTRATE 25 MG TABLET PO SCH (21:52)
[2019-05-14] MEDS: GABAPENTIN 300 MG CAPSULE PO SCH (21:52)
[2019-05-14] MEDS: AMITRIPTYLINE 25 MG TABLET PO SCH (21:52)
[2019-05-15] MEDS: METOCLOPRAMIDE 10 MG/2 ML VIAL IV SCH ×4 (00:29→17:39)
[2019-05-15] MEDS: MEPERIDINE 50 MG/ML INJECTION IV PRN ×5 (00:29→21:30)
[2019-05-15] MEDS: DEXTROSE 5%-1/2NS W/20MEQ KCL 1,000 ML IV SCH ×2 (03:18→10:39)
[2019-05-15] MEDS: POLYETHYLENE GLYCOL 3350 17 GM PACKET PO SCH ×2 (03:50→10:30)
[2019-05-15] MEDS: ACETAMINOPHEN 600 MG/60 ML BOTTLE IV PRN ×2 (04:14→11:12)
[2019-05-15] MEDS: metroNIDAZOLE 500 MG/100 ML BAG IV SCH ×4 (06:16→21:30)
[2019-05-15] MEDS: ESOMEPRAZOLE 40 MG VIAL IV SCH (07:56)
[2019-05-15] MEDS: LEVOTHYROXINE 100 MCG VIAL IV SCH (07:56)
--- NOTE | 2019-05-15 08:00 | Internal Med Progress Note ---
Medical - PN: Subj Patient information: Note initiated : 05/15/19 at 7:58 am Service Date, if different from initiated Date: [] Patient: Melody Dong 83 y/o F admitted on 05/08/19 for Left Lower Abd Pain. Chief Complaint: [] Interval history: Ms. Dong is a 83 year old extremely frail looking female presented to the ER with progressive weakness along with lower abdominal pain that started started a few months ago. She continued to ignore her symptoms failing to realize the progression did not seek medical attention. Symptoms were associated with occasional nausea/abdominal distention and intermittent constipation. Pain is described as 4 out of 10 to 8 out of 10 cramping lower abdominal without radiat ion and without associated blood in stool or change in stool caliber. Patient was recently evaluate by her primary care physician. She was found to have an elevated white count. She was referred to the ER where initial work-up was consistent with sigmoid diverticulitis with perisigmoid abscess measuring 9 and 5 cm. White count 19,000 along with pyuria. Subsequently surgery was consulted. Patient was started on antibiotic after blood cultures were drawn. Hospitalist service was consulted to consider admission while patient will undergo surgical intervention in 24 hours. At the time of evaluation patient is alert and oriented. She was able to endorse history as above. She denies prior similar episodes or abdominal surgery or history of diverticulitis. She denies drenching sweats, shaking chills or fever but endorses fatigue lethargic and loss of appetite. She denies bloody stool. She denies associated weight loss 05/09-patient currently n.p.o. No overnight events. White count downtrending. On antibiotic coverage. Due for surgery at noon. No family at bedside. No other concerns expressed to nursing staff. 05/10 Status post major bowel surgery yesterday with colectomy and colostomy and total abdominal hysterectomy with bilateral salpingo-oophorectomy. Feeling comfortable this morning. No new complaints and did okay overnight. 05/11 Some pain control last night so had poor sleep but pain control better this morning. Has a little bit of nausea and some abdominal pain otherwise no new complaints. 05/12 Patient is drowsy on my examination after getting pain medication. She states she had poor sleep last night because of noise. She has abdominal pain. No chest pain coughing shortness of breath. 05/13 Having more abdominal pain is morning. No ostomy output. Feels little feverish. Poor sleep again. Occasional cough, no shortness of breath. 05/14 Poor sleep again last night, feeling tired. Sitting up in the chair. She started to have good ostomy output overnight and her white blood cell counts dramatically improved. Abdominal pain improved. 05/15 No overnight events. Sitting up in chair. Overall feeling better. Still weak. Abdominal discomfort continues to improve. Diet advanced Review of Systems: denies headache/chills/vomiting/chest pain/dyspnea/diarrhea. Otherwise see above. - Constitutional Vitals: Vital Signs Temp Pulse Resp BP Pulse Ox 98.2 F 88 16 120/71 93 05/15/19 04:00 05/15/19 04:00 05/15/19 04:00 05/15/19 04:00 05/14/19 23:33 Period Temp Pulse Resp BP Sys/Nunez Pulse Ox Last 24 Hr 97.0 F-98.6 F 67-88 16-20 85-135/50-78 89-96 Intake and Output 05/14/19 05/15/19 05/15/19 21:59 05:59 13:59 Intake Total 120 280 Output Total 190 435 Balance -70 -155 Weight 48.353 kg Intake & Output: Intake & Output 05/14/19 05/15/19 05/15/19 21:59 05:59 13:59 Intake Total 120 280 Output Total 190 435 Balance -70 -155 Weight 48.353 kg Intake: IV 60 160 Oral 60 120 Output: Drainage 30 60 Abdomen AMARILYS Drain 30 60 Urine Catheter Amount 160 275 Stool 100 Other: Meal Dinner Percent of Meal Consumed 50% Urine Appearance Clear Clear Uretheral (Real) Clear Urine Color Bright Yellow Light [place] Uretheral (Real) Bright Yellow Urine Odor Normal Normal Uretheral (Real) Normal Stool Color Brown Brown Stool Consistency Loose Liquid Exam: General: Alert, Awake, No acute Distress Eyes/N/T: EOMI, Head/Neck: neck supple, CV: RRR, No murmurs, Pulm: Clear b/l, no wheezing/rhonchi/rales Abd: soft, colostomy in place with good outpt, + BS Ext: no clubbing/cyanosis/edema Neuro: Alert, no focal deficits, moves all extremities, Skin: warm/dry Medical - PN: Obj Da - Labs CBC & Chem 7: 05/14/19 04:05 05/14/19 04:05 Labs: Abnormal Lab Results 05/14/19 05/14/19 05/13/19 04:05 04:05 04:00 WBC 12.2 H RDW 18.8 H Plt Count 515 H MPV 7.0 L Gran % 82.5 H Lymph % (Auto) 9.2 L Gran # 10.1 H Lymph # (Auto) 1.1 L Seg Neutrophils % Lymphocytes % RBC Morphology Anisocytosis Potassium 3.2 L BUN 6 L 6 L Creatinine 0.3 L 0.5 L Glucose 117 H Calcium 8.0 L 8.1 L Phosphorus 2.2 L GGT 47 H Total Protein 4.9 L Albumin 2.2 L Albumin/Globulin Ratio 0.8 L 05/13/19 04:00 WBC 17.2 H RDW 18.6 H Plt Count 560 H MPV 6.9 L Gran % Lymph % (Auto) Gran # Lymph # (Auto) Seg Neutrophils % 89 H Lymphocytes % 6 L RBC Morphology Abnorm A Anisocytosis 1+ A Potassium BUN Creatinine Glucose Calcium Phosphorus GGT Total Protein Albumin Albumin/Globulin Ratio Meds: Medications Acetaminophen (Tylenol) 650 mg PO Q4-6HP PRN PRN Reason: PAIN/FEVER > 101 Amitriptyline HCl (Elavil) 50 mg PO [facility] Last Admin: 05/14/19 21:52 Dose: 50 mg Documented by: Dextrose (Dextrose 50%) 0 ml IV UD PRN PRN Reason: Hypoglycemia Diagnostic Test (Pha) (Accu-Chek) 1 each FS ACHS [facility] Last Admin: 05/14/19 20:57 Dose: 1 each Documented by: Diphenhydramine HCl (Benadryl) 25 mg IV HSP PRN PRN Reason: Allergic Symptoms/insomnia Esomeprazole Magnesium (Nexium) 40 mg IV QAMAC [facility] Last Admin: 05/15/19 07:56 Dose: 40 mg Documented by: Gabapentin (Neurontin) 300 mg PO HS [facility] Last Admin: 05/14/19 21:52 Dose: 300 mg Documented by: Glucose (Insta-Glucose) 15 gm PO PRN PRN PRN Reason: Hypoglycemia Heparin Sodium (Porcine) (Heparin) 5,000 unit SQ Q12 [facility] Last Admin: 05/14/19 21:51 Dose: 5,000 unit Documented by: Hydralazine HCl (Apresoline) 10 mg IV Q4-6HP PRN PRN Reason: Hypertension Ceftriaxone Sodium 2 gm/ (Dextrose) 50 mls @ 100 mls/hr IV Q24H [facility]; Protocol Potassium Chloride/Dextrose/Sod Cl (Dextrose 5%-1/2ns W/20meq Kcl) 1,000 mls @ 75 mls/hr IV .[id number] [facility] Last Admin: 05/15/19 03:18 Dose: 75 mls/hr Documented by: Magnesium Sulfate (Magnesium Sulfate) 2 gm in 50 mls @ 50 mls/hr IV UD PRN PRN Reason: MG = or < 1.7 Metronidazole (Flagyl) 500 mg in 100 mls @ 100 mls/hr IV Q8H [facility] Last Admin: 05/15/19 06:16 Dose: 100 mls/hr Documented by: Acetaminophen (Ofirmev) 600 mg in 60 mls @ 120 mls/hr IV Q6HP PRN PRN Reason: Pain Last Infusion: 05/15/19 04:45 Dose: Infused Documented by: Insulin Human Lispro (Humalog) 0 unit SQ ACHS [facility]; Protocol Last Admin: 05/14/19 21:50 Dose: 1 unit Documented by: Levothyroxine Sodium (Synthroid) 25 mcg IV ACB [facility] Last Admin: 05/15/19 07:56 Dose: 25 mcg Documented by: Melatonin (Melatonin 3mg Tablet) 3 mg PO HS [facility] Last Admin: 05/14/19 21:52 Dose: 3 mg Documented by: Meperidine HCl (Demerol) 25 - 37.5 mg IV Q2HP PRN PRN Reason: PAIN LEVEL > 6 Last Admin: 05/15/19 07:55 Dose: 25 mg Documented by: Metoclopramide HCl (Reglan) 10 mg IV Q6 [facility] Last Admin: 05/15/19 06:16 Dose: 10 mg Documented by: Metoprolol Tartrate (Lopressor) 5 mg IV Q2HP PRN PRN Reason: Tachyarrhythmias HR>110 Metoprolol Tartrate (Lopressor) 12.5 mg PO BID [facility] Last Admin: 05/14/19 21:52 Dose: 12.5 mg Documented by: Ondansetron HCl (Zofran) 4 mg IV Q4-6HP PRN PRN Reason: Nausea And Vomiting Polyethylene Glycol (Miralax) 17 gm PO Q6H [facility] Stop: 05/15/19 09:01 Last Admin: 05/15/19 03:50 Dose: 17 gm Documented by: Promethazine HCl (Phenergan) 6.25 mg IV Q4HP PRN PRN Reason: Nausea And Vomiting Last Admin: 05/14/19 20:57 Dose: 6.25 mg Documented by: Sodium Chloride (Saline Flush) 10 ml IV UD PRN PRN Reason: protocol Sodium Chloride (Saline Flush) 10 ml IV Q12 [facility] Last Admin: 05/14/19 22:07 Dose: 10 ml Documented by: Medical - PN: A/P - Time Spent With Patient Total time spent is greater than 50% in coordination of care (as documented) at patient's floor/unit and/or counseling patient: - Narrative A/P Narrative: A: *Acute sigmoid diverticulitis w/perisigmoid abscess: s/p Left colectomy w/colostomy & hartmans pouch (05/09) -no ostomy outpt, clinically no improvement yet -Wound Cx's growing Klebsiella & Strep intermedius -Clinically improving with good ostomy outpt o/n *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 resolved -WBC improving, Stable hemodynamics *Thrombocytosis: reactive, improving *Neuropathy: home gabapentin/amitriptyline *h/o migraine: no acute flare *Hypothyroidism: on thyroxine *GERD *Hypophos/víctor: improved *Multifocal Atrial Tachycardia: Plan: -Dr. Cuellar following -diet advancement per Surgery, d/c IVF's not that diet advanced -cont Rocephin/flagyl; pending final cx's -pain control -BB -replete electrolytes as needed -IS -pt/ot -ppx: heparin/ppi full code Medical - PN: Qual - VTE Deep Vein Thrombosis/Pulmonary Embolism Present on Admission: No
[2019-05-15] MEDS: INSULIN LISPRO 1 UNIT/0.01 ML UNIT SQ SCH ×4 (08:02→21:28)
[2019-05-15] MEDS: METOPROLOL TARTRATE 25 MG TABLET PO SCH ×2 (10:19→21:29)
[2019-05-15] MEDS: cefTRIAXone 2 GM in DEXTROSE 5% IN WATER 50 ML IV SCH (10:22)
[2019-05-15] MEDS: 0.9 % SODIUM CHLORIDE 10 ML SYRINGE IV SCH ×2 (10:24→21:29)
[2019-05-15] MEDS: HEPARIN 5,000 UNIT/ML VIAL SQ SCH ×2 (10:26→21:28)
--- NOTE | 2019-05-15 13:57 | General Surgery Progress Note ---
Subjective Patient reports: feels better, pain is less, tolerating liquids well, flatus, bowel movement, afebrile Narrative: Note initiated : 05/15/19 at 1:55 pm Service Date, if different from initiated Date: [] Patient: Melody Dong 83 y/o F admitted on 05/08/19 for Left Lower Abd Pain. Chief Complaint: [Patient is doing well. She states that her pain is much better. She is having good bowel movements via her stoma. She denies any respiratory difficulty. Urine output is adequate] Objective Temp Pulse Resp BP Pulse Ox 97.3 F 84 16 106/59 94 05/15/19 08:00 05/15/19 08:00 05/15/19 08:00 05/15/19 08:00 05/15/19 08:00 - Additional Data Intake & Output - Last 24 hours: Intake & Output 05/13/19 05/14/19 05/15/19 05/16/19 05:59 05:59 05:59 05:59 Intake Total 2020 3830 1742 477 Output Total 2747 2390 1170 Balance -727 1440 572 477 Weight 102 lb 5 oz 104 lb 3 oz 106 lb 9.6 oz 106 lb 9.6 oz - General physical appearance no distress, cachectic, chronically ill, other (mild pain) - Eyes PERRL, normal ocular movement - ENT normal pinna, normal nares, normal mucosa, no hearing loss, no congestion - Neck no masses, no bruits, trachea midline, no lymphadenopathy, no venous distension - Respiratory normal expansion, normal respiratory effort, clear to auscultation - Cardiovascular Cardiovascular exam: Present: normal rate and rhythm, RRR, +S1, +S2. Absent: JVD, tachycardia - Abdomen tender (mild incisional tenderness), bowel sounds (active bowel sounds), surgical scars ( incision looks good; stoma is healthy and is functioning), distended (moderate distention with tympany) - Integumentary no rash, no growths, no abnormal pigmentation - Neurologic normal coordination, normal sensation - Musculoskeletal normal gait, normal posture - Psychiatric oriented to time, oriented to person, oriented to place, speech is normal, memory intact - Labs 05/14/19 04:05 05/14/19 04:05 Assessment and Plan (1) Acute abscess of female pelvis Status: Acute Assessment and plan: Patient is stable for transfer to [facility] floor. Advanced to full liquid diet with ensure Current Visit: Yes (2) Acute diverticulitis of intestine Status: Resolved Assessment and plan: Continue IV antibiotics Current Visit: Yes (3) Sepsis Status: Acute Current Visit: Yes - Time Spent With Patient Total time spent is greater than 50% in coordination of care (as documented) at patient's floor/unit and/or counseling patient:
[2019-05-15] MEDS: AMITRIPTYLINE 25 MG TABLET PO SCH (21:27)
[2019-05-15] MEDS: GABAPENTIN 300 MG CAPSULE PO SCH (21:29)
[2019-05-15] MEDS: MELATONIN 3 MG TABLET PO SCH (21:29)
[2019-05-16] MEDS: METOCLOPRAMIDE 10 MG/2 ML VIAL IV SCH ×4 (00:53→17:42)
[2019-05-16] MEDS: MEPERIDINE 50 MG/ML INJECTION IV PRN ×4 (05:23→20:10)
[2019-05-16] MEDS: metroNIDAZOLE 500 MG/100 ML BAG IV SCH (05:26)
[2019-05-16 06:20] LABS: Basophils # (Auto) 0 K/mcL (0.0-0.3); Basophils % (Auto) 0.3 % (0.0-2.0); Eosinophils # (Auto) 0.2 K/mcL (0.0-0.7); Eosinophils % (Auto) 1.9 % (0.0-7.0); Granulocytes % (Auto) 81.2 % (38.0-78.0); Hemoglobin 12.4 g/dL (12.0-15.0); Lymphocytes # (Auto) 1.3 K/mcL (1.5-4.8); Lymphocytes % (Auto) 10.5 % (15.5-49.0); Mean Cell Volume 88.3 fL (80.0-100.0); Mean Corpuscular HGB Conc 32.6 g/dL (31.0-36.0); Mean Platelet Volume 7.4 fL (7.4-10.4); Monocytes # (Auto) 0.7 K/mcL (0.1-0.9); Monocytes % (Auto) 6.1 % (1.0-12.0); Platelet Count 496 K/mcL (140-440); Red Cell Distribution Width 19.2 % (11.5-14.5); WBC 12.2 K/mcL (4.5-11.0)
[2019-05-16 06:23] LABS: ALT/SGPT 6 U/l (0-40); AST/SGOT 15 U/l (0-37); Albumin 2.1 gm/dL (3.2-5.2); Albumin/Globulin Ratio 0.7 (1.0-2.3); Alkaline Phosphatase 96 U/L (39-117); Bilirubin,Direct < 0.2 mg/dL (0.0-0.3); Bilirubin,Total 0.3 mg/dL (0.0-1.0); Blood Urea Nitrogen 9 mg/dl (8-23); Calcium 8.3 mg/dl (8.6-10.4); Carbon Dioxide 29 mmol/L (22-30); Chloride 101 mmol/L (96-108); Globulin 2.9 gm/dL (2.2-3.7); Glomerular Filtration Rate 107; Glucose 94 mg/dL (70-105); Lactate Dehydrogenase 200 U/L (94-250); Phosphorous 1.7 mg/dL (2.7-4.5); Triglycerides 127 mg/dl (<150)
[2019-05-16] MEDS: ESOMEPRAZOLE 40 MG VIAL IV SCH (07:11)
[2019-05-16] MEDS: LEVOTHYROXINE 100 MCG VIAL IV SCH (07:11)
[2019-05-16] MEDS: INSULIN LISPRO 1 UNIT/0.01 ML UNIT SQ SCH ×4 (07:23→20:24)
--- NOTE | 2019-05-16 09:44 | Internal Med Progress Note ---
Medical - PN: Subj Patient information: Note initiated : 05/16/19 at 9:41 am Service Date, if different from initiated Date: [] Patient: Melody Dong 83 y/o F admitted on 05/08/19 for Left Lower Abd Pain. Chief Complaint: [] Interval history: Ms. Dong is a 83 year old extremely frail looking female presented to the ER with progressive weakness along with lower abdominal pain that started started a few months ago. She continued to ignore her symptoms failing to realize the progression did not seek medical attention. Symptoms were associated with occasional nausea/abdominal distention and intermittent constipation. Pain is described as 4 out of 10 to 8 out of 10 cramping lower abdominal without radiat ion and without associated blood in stool or change in stool caliber. Patient was recently evaluate by her primary care physician. She was found to have an elevated white count. She was referred to the ER where initial work-up was consistent with sigmoid diverticulitis with perisigmoid abscess measuring 9 and 5 cm. White count 19,000 along with pyuria. Subsequently surgery was consulted. Patient was started on antibiotic after blood cultures were drawn. Hospitalist service was consulted to consider admission while patient will undergo surgical intervention in 24 hours. At the time of evaluation patient is alert and oriented. She was able to endorse history as above. She denies prior similar episodes or abdominal surgery or history of diverticulitis. She denies drenching sweats, shaking chills or fever but endorses fatigue lethargic and loss of appetite. She denies bloody stool. She denies associated weight loss 05/09-patient currently n.p.o. No overnight events. White count downtrending. On antibiotic coverage. Due for surgery at noon. No family at bedside. No other concerns expressed to nursing staff. 05/10 Status post major bowel surgery yesterday with colectomy and colostomy and total abdominal hysterectomy with bilateral salpingo-oophorectomy. Feeling comfortable this morning. No new complaints and did okay overnight. 05/11 Some pain control last night so had poor sleep but pain control better this morning. Has a little bit of nausea and some abdominal pain otherwise no new complaints. 05/12 Patient is drowsy on my examination after getting pain medication. She states she had poor sleep last night because of noise. She has abdominal pain. No chest pain coughing shortness of breath. 05/13 Having more abdominal pain is morning. No ostomy output. Feels little feverish. Poor sleep again. Occasional cough, no shortness of breath. 05/14 Poor sleep again last night, feeling tired. Sitting up in the chair. She started to have good ostomy output overnight and her white blood cell counts dramatically improved. Abdominal pain improved. 05/15 No overnight events. Sitting up in chair. Overall feeling better. Still weak. Abdominal discomfort continues to improve. Diet advanced 05/16-patient doing well. No overnight events. No concerns per staff. Colostomy functional. Postoperative care managed by surgery. White count down to 12.2 from peak of 28,000. Creatinine 0.3 - Constitutional Vitals: Vital Signs Temp Pulse Resp BP Pulse Ox 98.2 F 64 16 134/80 92 05/16/19 07:12 05/16/19 07:23 05/16/19 07:23 05/16/19 07:12 05/16/19 07:23 Period Temp Pulse Resp BP Sys/Nunez Pulse Ox Last 24 Hr 97.5 F-98.8 F 64-96 16-18 103-146/56-80 92-95 Intake and Output 05/15/19 05/16/19 05/16/19 21:59 05:59 13:59 Intake Total 100 500 100 Output Total 635 730 Balance -535 -230 100 Weight 106 lb 14.4 oz Intake & Output: Intake & Output 05/15/19 05/16/19 05/16/19 21:59 05:59 13:59 Intake Total 100 500 100 Output Total 635 730 Balance -535 -230 100 Weight 106 lb 14.4 oz Intake: IV 100 100 100 Oral 400 Output: Drainage 30 Abdomen AMARILYS Drain 30 Drainage 30 30 Abdomen AMARILYS Drain 30 30 Urine Catheter Amount 475 Void Amount 100 500 Stool 200 Other: Urine Appearance Clear Clear Urine Color Light Adenike Light Adenike Urine Odor Normal Normal Stool Size Small Stool Color Brown Brown Stool Consistency Normal for Patient Normal for Patient Soft Soft Liquid Liquid General appearance: no acute distress Exam: Resting comfortably No overnight events Nonlabored breathing Nontender nondistended abdomen Medical - PN: Obj Da - Labs CBC & Chem 7: 05/16/19 04:00 05/16/19 04:00 Labs: Abnormal Lab Results 05/16/19 05/16/19 05/14/19 04:00 04:00 04:05 WBC 12.2 H RDW 19.2 H Plt Count 496 H MPV Gran % 81.2 H Lymph % (Auto) 10.5 L Gran # 9.9 H Lymph # (Auto) 1.3 L BUN 6 L Creatinine 0.3 L 0.3 L Uric Acid 2.0 L Calcium 8.3 L 8.0 L Phosphorus 1.7 L GGT 41 H Total Protein 5.0 L Albumin 2.1 L Albumin/Globulin Ratio 0.7 L 05/14/19 04:05 WBC 12.2 H RDW 18.8 H Plt Count 515 H MPV 7.0 L Gran % 82.5 H Lymph % (Auto) 9.2 L Gran # 10.1 H Lymph # (Auto) 1.1 L BUN Creatinine Uric Acid Calcium Phosphorus GGT Total Protein Albumin Albumin/Globulin Ratio Meds: Medications Acetaminophen (Tylenol) 650 mg PO Q4-6HP PRN PRN Reason: PAIN/FEVER > 101 Amitriptyline HCl (Elavil) 50 mg PO [facility] Last Admin: 05/15/19 21:27 Dose: 50 mg Documented by: Dextrose (Dextrose 50%) 0 ml IV UD PRN PRN Reason: Hypoglycemia Diagnostic Test (Pha) (Accu-Chek) 1 each FS ACHS [facility] Last Admin: 05/16/19 07:21 Dose: 1 each Documented by: Diphenhydramine HCl (Benadryl) 25 mg IV HSP PRN PRN Reason: Allergic Symptoms/insomnia Last Admin: 05/15/19 23:09 Dose: 25 mg Documented by: Esomeprazole Magnesium (Nexium) 40 mg IV QAMAC [facility] Last Admin: 05/16/19 07:11 Dose: 40 mg Documented by: Gabapentin (Neurontin) 300 mg PO [facility] Last Admin: 05/15/19 21:29 Dose: 300 mg Documented by: Glucose (Insta-Glucose) 15 gm PO PRN PRN PRN Reason: Hypoglycemia Heparin Sodium (Porcine) (Heparin) 5,000 unit SQ Q12 [facility] Last Admin: 05/15/19 21:28 Dose: 5,000 unit Documented by: Hydralazine HCl (Apresoline) 10 mg IV Q4-6HP PRN PRN Reason: Hypertension Ceftriaxone Sodium 2 gm/ (Dextrose) 50 mls @ 100 mls/hr IV Q24H [facility]; Protocol Last Infusion: 05/15/19 10:52 Dose: Infused Documented by: Magnesium Sulfate (Magnesium Sulfate) 2 gm in 50 mls @ 50 mls/hr IV UD PRN PRN Reason: MG = or < 1.7 Acetaminophen (Ofirmev) 600 mg in 60 mls @ 120 mls/hr IV Q6HP PRN PRN Reason: Pain Last Admin: 05/15/19 11:12 Dose: 120 mls/hr Documented by: Metronidazole (Flagyl) 500 mg in 100 mls @ 100 mls/hr IV Q8H [facility] Last Infusion: 05/16/19 06:26 Dose: Infused Documented by: Insulin Human Lispro (Humalog) 0 unit SQ ACHS [facility]; Protocol Last Admin: 05/16/19 07:23 Dose: Not Given Documented by: Levothyroxine Sodium (Synthroid) 25 mcg IV ACB [facility] Last Admin: 05/16/19 07:11 Dose: 25 mcg Documented by: Melatonin (Melatonin 3mg Tablet) 3 mg PO HS [facility] Last Admin: 05/15/19 21:29 Dose: 3 mg Documented by: Meperidine HCl (Demerol) 25 - 37.5 mg IV Q2HP PRN PRN Reason: PAIN LEVEL > 6 Last Admin: 05/16/19 05:23 Dose: 25 mg Documented by: Metoclopramide HCl (Reglan) 10 mg IV Q6 [facility] Last Admin: 05/16/19 06:07 Dose: 10 mg Documented by: Metoprolol Tartrate (Lopressor) 5 mg IV Q2HP PRN PRN Reason: Tachyarrhythmias HR>110 Metoprolol Tartrate (Lopressor) 12.5 mg PO BID [facility] Last Admin: 05/15/19 21:29 Dose: 12.5 mg Documented by: Ondansetron HCl (Zofran) 4 mg IV Q4-6HP PRN PRN Reason: Nausea And Vomiting Promethazine HCl (Phenergan) 6.25 mg IV Q4HP PRN PRN Reason: Nausea And Vomiting Last Admin: 05/14/19 20:57 Dose: 6.25 mg Documented by: Sodium Chloride (Saline Flush) 10 ml IV UD PRN PRN Reason: protocol Sodium Chloride (Saline Flush) 10 ml IV Q12 [facility] Last Admin: 05/15/19 21:29 Dose: 10 ml Documented by: Medical - PN: A/P - Time Spent With Patient Total time spent is greater than 50% in coordination of care (as documented) at patient's floor/unit and/or counseling patient: 25 - 35 minutes (1) Sepsis Status: Acute Assessment and plan: * Acute sigmoid diverticulitis with perisigmoid abscess-s/p Left colectomy w/colostomy & hartmans pouch (05/09) -no ostomy outpt, clinically no improvement yet -Wound Cx's growing Klebsiella & Strep intermedius -Clinically improving with good ostomy outpt o/n Continue Rocephin. Diet advance per surgery to full liquid * Uterine abscess with left ovarian mass with necrosis and salpingitis status post JASON/BSO 05/09-biopsy negative for malignant cells * Severe sepsis secondary to above. Clinically resolved. White count down from 28,000-12,000 * Pain management -well-controlled * Neuropathy - p.o. gabapentin/amitriptyline * History of migraine no acute flare * Hypothyroidism on thyroxine * MAT resolved * Full code * Prophylaxis heparin Plan * Postop care as per surgery * Diet advancement per surgery * Continue Rocephin and Flagyl * PT OT/nutrition support * Discharge planning per case management Current Visit: Yes Medical - PN: Qual - VTE Deep Vein Thrombosis/Pulmonary Embolism Present on Admission: No
[2019-05-16] MEDS: cefTRIAXone 2 GM in DEXTROSE 5% IN WATER 50 ML IV SCH (10:05)
[2019-05-16] MEDS: MAGNESIUM SULFATE 2 GM/50 ML BAG IV PRN (10:05)
[2019-05-16] MEDS: 0.9 % SODIUM CHLORIDE 10 ML SYRINGE IV SCH ×2 (10:06→21:43)
[2019-05-16] MEDS: HEPARIN 5,000 UNIT/ML VIAL SQ SCH ×2 (10:06→20:23)
[2019-05-16] MEDS: METOPROLOL TARTRATE 25 MG TABLET PO SCH ×2 (10:06→20:23)
[2019-05-16] MEDS: ACETAMINOPHEN 600 MG/60 ML BOTTLE IV PRN (12:37)
--- NOTE | 2019-05-16 12:41 | General Surgery Progress Note ---
Subjective Patient reports: feels better, pain is less, flatus, bowel movement, afebrile Narrative: Note initiated : 05/16/19 at 12:39 pm Service Date, if different from initiated Date: [] Patient: Melody Dong 83 y/o F admitted on 05/08/19 for Left Lower Abd Pain. Chief Complaint: [patient continues to improve. She's been afebrile. Her incision is healing uneventfully. Her pain is adequately controlled. White count 12.2, hemoglobin 12.4, hematocrit 38, phosphorus 1.7.] Objective Temp Pulse Resp BP Pulse Ox 97.6 F 64 20 124/72 90 05/16/19 11:50 05/16/19 07:23 05/16/19 11:50 05/16/19 11:50 05/16/19 11:50 - Additional Data Intake & Output - Last 24 hours: Intake & Output 05/14/19 05/15/19 05/16/19 05/17/19 05:59 05:59 05:59 05:59 Intake Total 3830 1742 1187 270 Output Total 2390 1170 1365 Balance 1440 572 -178 270 Weight 104 lb 3 oz 106 lb 9.6 oz 106 lb 14.4 oz - General physical appearance cachectic, chronically ill - Eyes PERRL, normal ocular movement - ENT normal pinna, normal nares, normal mucosa, no hearing loss, no congestion - Neck no masses, no bruits, trachea midline, no lymphadenopathy, no venous distension - Respiratory normal expansion, normal respiratory effort, clear to auscultation - Cardiovascular Cardiovascular exam: Present: normal rate and rhythm, RRR, +S1, +S2, systolic murmur (grade 2-3 systolic ejection murmur). Absent: JVD, tachycardia - Abdomen soft, tender ( mild incisional tenderness with normal active bowel sounds; stoma left lower quadrant is functioning adequately) - Integumentary no rash, no growths, no abnormal pigmentation - Neurologic normal coordination, normal sensation - Musculoskeletal normal gait, normal posture - Psychiatric oriented to time, oriented to person, oriented to place, speech is normal, memory intact - Labs 05/16/19 04:00 05/16/19 04:00 Diabetes panel 05/16/19 Range/Units 04:00 Sodium 139 (133-145) mmol/L Potassium 4.0 (3.3-5.1) mmol/L Chloride 101 (96-108) mmol/L Carbon Dioxide 29 (22-30) mmol/L BUN 9 (8-23) mg/dl Creatinine 0.3 L (0.6-1.1) mg/dl Glucose 94 (70-105) mg/dL Calcium 8.3 L (8.6-10.4) mg/dl AST 15 (0-37) U/l ALT 6 (0-40) U/l Alkaline Phosphatase 96 (39-117) U/L Total Protein 5.0 L (5.9-8.4) gm/dL Albumin 2.1 L (3.2-5.2) gm/dL Triglycerides 127 (<150) mg/dl Calcium panel 05/16/19 Range/Units 04:00 Calcium 8.3 L (8.6-10.4) mg/dl Phosphorus 1.7 L (2.7-4.5) mg/dL Albumin 2.1 L (3.2-5.2) gm/dL Pituitary panel 05/16/19 Range/Units 04:00 Sodium 139 (133-145) mmol/L Potassium 4.0 (3.3-5.1) mmol/L Chloride 101 (96-108) mmol/L Carbon Dioxide 29 (22-30) mmol/L BUN 9 (8-23) mg/dl Creatinine 0.3 L (0.6-1.1) mg/dl Glucose 94 (70-105) mg/dL Calcium 8.3 L (8.6-10.4) mg/dl Adrenal panel 05/16/19 Range/Units 04:00 Sodium 139 (133-145) mmol/L Potassium 4.0 (3.3-5.1) mmol/L Chloride 101 (96-108) mmol/L Carbon Dioxide 29 (22-30) mmol/L BUN 9 (8-23) mg/dl Creatinine 0.3 L (0.6-1.1) mg/dl Glucose 94 (70-105) mg/dL Calcium 8.3 L (8.6-10.4) mg/dl Total Bilirubin 0.3 (0.0-1.0) mg/dL AST 15 (0-37) U/l ALT 6 (0-40) U/l Alkaline Phosphatase 96 (39-117) U/L Total Protein 5.0 L (5.9-8.4) gm/dL Albumin 2.1 L (3.2-5.2) gm/dL Assessment and Plan (1) Acute abscess of female pelvis Status: Acute Assessment and plan: Repeat urine analysis to rule out infection Start soft diet Discontinue IV antibiotics Oral cephalexin 500 mg every 8 hours Current Visit: Yes (2) Acute diverticulitis of intestine Status: Resolved Assessment and plan: switch to oral antibiotics Current Visit: Yes (3) Sepsis Status: Acute Current Visit: Yes - Time Spent With Patient Total time spent is greater than 50% in coordination of care (as documented) at patient's floor/unit and/or counseling patient:
--- NOTE | 2019-05-16 13:10 | General Surgery Progress Note ---
Subjective Patient reports: feels better, pain is less, flatus, bowel movement, diarrhea, afebrile Narrative: Note initiated : 05/16/19 at 1:08 pm Service Date, if different from initiated Date: [] Patient: Melody Dong 83 y/o F admitted on 05/08/19 for Left Lower Abd Pain. Chief Complaint: [patient is doing well. She has control of her pain with her present medication regimen. She has been afebrile. She denies nausea. His stoma is working well white blood count 12.2, hemoglobin 12.4, hematocrit 30, phosphorus 1.7] Objective Temp Pulse Resp BP Pulse Ox 97.6 F 64 20 124/72 90 05/16/19 11:50 05/16/19 07:23 05/16/19 11:50 05/16/19 11:50 05/16/19 11:50 - Additional Data Intake & Output - Last 24 hours: Intake & Output 05/14/19 05/15/19 05/16/19 05/17/19 05:59 05:59 05:59 05:59 Intake Total 3830 1742 1187 270 Output Total 2390 1170 1365 Balance 1440 572 -178 270 Weight 104 lb 3 oz 106 lb 9.6 oz 106 lb 14.4 oz - General physical appearance cachectic, chronically ill - Eyes PERRL, normal ocular movement - ENT normal pinna, normal nares, normal mucosa, no hearing loss, no congestion - Neck no masses, no bruits, trachea midline, no lymphadenopathy, no venous distension - Respiratory normal expansion, normal respiratory effort, clear to auscultation - Cardiovascular Cardiovascular exam: Present: normal rate and rhythm, RRR, +S1, +S2. Absent: JVD, tachycardia - Abdomen tender (mild incisional tenderness), bowel sounds (present), surgical scars ( incision is healing uneventfully; stoma has good output), masses (none) - Integumentary no rash, no growths, no abnormal pigmentation - Neurologic normal coordination, normal sensation - Psychiatric oriented to time, oriented to person, oriented to place, speech is normal, memory intact - Labs 05/16/19 04:00 05/16/19 04:00 Diabetes panel 05/16/19 Range/Units 04:00 Sodium 139 (133-145) mmol/L Potassium 4.0 (3.3-5.1) mmol/L Chloride 101 (96-108) mmol/L Carbon Dioxide 29 (22-30) mmol/L BUN 9 (8-23) mg/dl Creatinine 0.3 L (0.6-1.1) mg/dl Glucose 94 (70-105) mg/dL Calcium 8.3 L (8.6-10.4) mg/dl AST 15 (0-37) U/l ALT 6 (0-40) U/l Alkaline Phosphatase 96 (39-117) U/L Total Protein 5.0 L (5.9-8.4) gm/dL Albumin 2.1 L (3.2-5.2) gm/dL Triglycerides 127 (<150) mg/dl Calcium panel 05/16/19 Range/Units 04:00 Calcium 8.3 L (8.6-10.4) mg/dl Phosphorus 1.7 L (2.7-4.5) mg/dL Albumin 2.1 L (3.2-5.2) gm/dL Pituitary panel 05/16/19 Range/Units 04:00 Sodium 139 (133-145) mmol/L Potassium 4.0 (3.3-5.1) mmol/L Chloride 101 (96-108) mmol/L Carbon Dioxide 29 (22-30) mmol/L BUN 9 (8-23) mg/dl Creatinine 0.3 L (0.6-1.1) mg/dl Glucose 94 (70-105) mg/dL Calcium 8.3 L (8.6-10.4) mg/dl Adrenal panel 05/16/19 Range/Units 04:00 Sodium 139 (133-145) mmol/L Potassium 4.0 (3.3-5.1) mmol/L Chloride 101 (96-108) mmol/L Carbon Dioxide 29 (22-30) mmol/L BUN 9 (8-23) mg/dl Creatinine 0.3 L (0.6-1.1) mg/dl Glucose 94 (70-105) mg/dL Calcium 8.3 L (8.6-10.4) mg/dl Total Bilirubin 0.3 (0.0-1.0) mg/dL AST 15 (0-37) U/l ALT 6 (0-40) U/l Alkaline Phosphatase 96 (39-117) U/L Total Protein 5.0 L (5.9-8.4) gm/dL Albumin 2.1 L (3.2-5.2) gm/dL Assessment and Plan (1) Acute abscess of female pelvis Status: Acute Assessment and plan: Repeat urine analysis to rule out infection Start soft diet Discontinue IV antibiotics Oral cephalexin 500 mg every 8 hours Current Visit: Yes (2) Acute diverticulitis of intestine Status: Resolved Assessment and plan: switch to oral antibiotics Current Visit: Yes (3) Sepsis Status: Acute Current Visit: Yes - Time Spent With Patient Total time spent is greater than 50% in coordination of care (as documented) at patient's floor/unit and/or counseling patient:
[2019-05-16] MEDS: CEPHALEXIN 500 MG CAPSULE PO SCH ×3 (13:58→20:23)
[2019-05-16] MEDS ORDERED: SODIUM PHOSPHATE 30 MMOL in DEXTROSE 5% IN WATER 500 ML IV ONE (14:44)
[2019-05-16] MEDS: PANTOPRAZOLE 40 MG TABLET PO SCH (17:43)
[2019-05-16 18:30] LABS: Appearance,Urine CLEAR; Bilirubin,Urine NEG (NEG); Color,Urine YELLOW; Culture Indicated,Urine NO; Glucose,Urine (UA) NEGATIVE (NEG); Ketones,Urine NEG (NEG); Leukocyte Esterase,Urine NEG /uL (NEG); Nitrate,Urine NEG (NEG); Protein,Urine NEG (NEG); Specific Gravity,Urine 1.016 (1.000-1.035); Urine Blood NEG mg/dL (<0.03); Urobilinogen,Urine NEG (NEG)
[2019-05-16] MEDS: GABAPENTIN 300 MG CAPSULE PO SCH (20:23)
[2019-05-16] MEDS: MELATONIN 3 MG TABLET PO SCH (20:23)
[2019-05-16] MEDS: AMITRIPTYLINE 25 MG TABLET PO SCH (20:23)
[2019-05-17] MEDS: METOCLOPRAMIDE 10 MG/2 ML VIAL IV SCH ×2 (00:23→05:56)
[2019-05-17] MEDS: MEPERIDINE 50 MG/ML INJECTION IV PRN (02:48)
[2019-05-17] MEDS ORDERED: LEVOTHYROXINE 25 MCG TABLET PO SCH (07:30)
[2019-05-17] MEDS: MAGNESIUM SULFATE 2 GM/50 ML BAG IV PRN (08:02)
[2019-05-17] MEDS: PANTOPRAZOLE 40 MG TABLET PO SCH (08:12)
[2019-05-17] MEDS: INSULIN LISPRO 1 UNIT/0.01 ML UNIT SQ SCH (08:36)
[2019-05-17] MEDS ORDERED: SUMAtriptan SUCCINATE 50 MG TABLET PO PRN (09:01)
[2019-05-17] MEDS: METOPROLOL TARTRATE 25 MG TABLET PO SCH (09:29)
[2019-05-17] MEDS: CEPHALEXIN 500 MG CAPSULE PO SCH (09:31)
[2019-05-17] MEDS: HEPARIN 5,000 UNIT/ML VIAL SQ SCH (09:31)
[2019-05-17] MEDS: 0.9 % SODIUM CHLORIDE 10 ML SYRINGE IV SCH (09:31)
[2019-05-17] MEDS ORDERED: NEUTRA PHOS 1 PACKET PO SCH (09:33)
[2019-05-17] MEDS ORDERED: ASPIRIN PO PRN (10:19)
[2019-05-17] MEDS ORDERED: MAGNESIUM HYDROXIDE 30 ML ORAL.SUSP PO PRN (10:19)
[2019-05-17] MEDS ORDERED: CAFFEINE PO PRN (10:19)
[2019-05-17] MEDS ORDERED: ACETAMINOPHEN 500 MG TABLET PO PRN (10:19)
[2019-05-17] MEDS ORDERED: ACETAMINOPHEN PO PRN (10:19)
[2019-05-17] MEDS ORDERED: NAPROXEN 250 MG TABLET PO PRN (10:30)
--- NOTE | 2019-05-17 11:08 | Internal Med Progress Note ---
Medical - PN: Subj Patient information: Note initiated : 05/17/19 at 11:05 am Service Date, if different from initiated Date: [] Patient: Melody Dong 83 y/o F admitted on 05/08/19 for Left Lower Abd Pain. Chief Complaint: [] Interval history: Ms. Dong is a 83 year old extremely frail looking female presented to the ER with progressive weakness along with lower abdominal pain that started started a few months ago. She continued to ignore her symptoms failing to realize the progression did not seek medical attention. Symptoms were associated with occasional nausea/abdominal distention and intermittent constipation. Pain is described as 4 out of 10 to 8 out of 10 cramping lower abdominal without radia tion and without associated blood in stool or change in stool caliber. Patient was recently evaluate by her primary care physician. She was found to have an elevated white count. She was referred to the ER where initial work-up was consistent with sigmoid diverticulitis with perisigmoid abscess measuring 9 and 5 cm. White count 19,000 along with pyuria. Subsequently surgery was consulted. Patient was started on antibiotic after blood cultures were drawn. Hospitalist service was consulted to consider admission while patient will undergo surgical intervention in 24 hours. At the time of evaluation patient is alert and oriented. She was able to endorse history as above. She denies prior similar episodes or abdominal surgery or history of diverticulitis. She denies drenching sweats, shaking chills or fever but endorses fatigue lethargic and loss of appetite. She denies bloody stool. She denies associated weight loss 05/09-patient currently n.p.o. No overnight events. White count downtrending. On antibiotic coverage. Due for surgery at noon. No family at bedside. No other concerns expressed to nursing staff. 05/10 Status post major bowel surgery yesterday with colectomy and colostomy and total abdominal hysterectomy with bilateral salpingo-oophorectomy. Feeling comfortable this morning. No new complaints and did okay overnight. 05/11 Some pain control last night so had poor sleep but pain control better this morning. Has a little bit of nausea and some abdominal pain otherwise no new complaints. 05/12 Patient is drowsy on my examination after getting pain medication. She states she had poor sleep last night because of noise. She has abdominal pain. No chest pain coughing shortness of breath. 05/13 Having more abdominal pain is morning. No ostomy output. Feels little feverish. Poor sleep again. Occasional cough, no shortness of breath. 05/14 Poor sleep again last night, feeling tired. Sitting up in the chair. She started to have good ostomy output overnight and her white blood cell counts dramatically improved. Abdominal pain improved. 05/15 No overnight events. Sitting up in chair. Overall feeling better. Still weak. Abdominal discomfort continues to improve. Diet advanced 05/16-patient doing well. No overnight events. No concerns per staff. Colostomy functional. Postoperative care managed by surgery. White count down to 12.2 from peak of 28,000. Creatinine 0.3 05/17-patient doing well. No further recommendations hospitalist service. On diet advancement per surgery. Postop care/colostomy care as per surgery. Patient will likely be discharged soon as per surgery. - Constitutional Vitals: Vital Signs Temp Pulse Resp BP Pulse Ox 97.6 F 80 16 153/72 90 05/17/19 07:36 05/17/19 04:07 05/17/19 07:36 05/17/19 07:36 05/17/19 07:36 Period Temp Pulse Resp BP Sys/Nunez Pulse Ox Last 24 Hr 97.4 F-98.4 F 80-88 16-22 124-153/72-87 90-95 Intake and Output 05/16/19 05/17/19 05/17/19 21:59 05:59 13:59 Intake Total 120 150 Output Total 905 1280 575 Balance -785 -1130 -575 Weight 108 lb 11.2 oz Intake & Output: Intake & Output 05/16/19 05/17/19 05/17/19 21:59 05:59 13:59 Intake Total 120 150 Output Total 905 1280 575 Balance -785 -1130 -575 Weight 108 lb 11.2 oz Intake: Nourishment/Supplement quantity 25 (ml) Oral 120 125 Output: Drainage 30 Abdomen AMARILYS Drain 30 Drainage 30 Abdomen AMARILYS Drain 30 Urine Catheter Amount 275 Uretheral (Real) 275 Void Amount 350 1000 575 Stool 250 250 Other: Meal Dinner Nourishment/Supplement Percent of Meal Consumed 25% Urine Appearance Clear Uretheral (Real) Clear Urine Color Dark Yellow Pale Uretheral (Real) Dark Yellow Urine Odor Normal Uretheral (Real) Normal Stool Color Brown Stool Consistency Liquid Loose General appearance: no acute distress Exam: Alert oriented Nonlabored breathing Nontender nondistended abdomen colostomy in place No anxiety Medical - PN: Obj Da - Labs CBC & Chem 7: 05/16/19 04:00 05/16/19 04:00 Labs: Abnormal Lab Results 05/16/19 05/16/19 04:00 04:00 WBC 12.2 H RDW 19.2 H Plt Count 496 H Gran % 81.2 H Lymph % (Auto) 10.5 L Gran # 9.9 H Lymph # (Auto) 1.3 L Creatinine 0.3 L Uric Acid 2.0 L Calcium 8.3 L Phosphorus 1.7 L GGT 41 H Total Protein 5.0 L Albumin 2.1 L Albumin/Globulin Ratio 0.7 L Meds: Medications Acetaminophen (Tylenol) 650 mg PO Q4-6HP PRN PRN Reason: PAIN/FEVER > 101 Last Admin: 05/17/19 09:32 Dose: 650 mg Documented by: Hydrocodone Bitart/Acetaminophen ([place] 5/325mg) 1 tab PO TID [facility] Amitriptyline HCl (Elavil) 50 mg PO HS [facility] Last Admin: 05/16/19 20:23 Dose: 50 mg Documented by: Cephalexin HCl (Keflex) 500 mg PO QID [facility]; Protocol Last Admin: 05/17/19 09:31 Dose: 500 mg Documented by: Clotrimazole (Mycelex Crm 1%) 1 dose TOPICAL BID [facility] Dextrose (Dextrose 50%) 0 ml IV UD PRN PRN Reason: Hypoglycemia Diagnostic Test (Pha) (Accu-Chek) 1 each FS ACHS [facility] Last Admin: 05/17/19 08:36 Dose: 1 each Documented by: Diphenhydramine HCl (Benadryl) 25 mg IV HSP PRN PRN Reason: Allergic Symptoms/insomnia Last Admin: 05/15/19 23:09 Dose: 25 mg Documented by: Docusate Sodium (Colace) 200 mg PO HS [facility] Gabapentin (Neurontin) 300 mg PO HS [facility] Last Admin: 05/16/19 20:23 Dose: 300 mg Documented by: Gabapentin (Neurontin) 100 mg PO DAILY@08,1200 [facility] Glucose (Insta-Glucose) 15 gm PO PRN PRN PRN Reason: Hypoglycemia Heparin Sodium (Porcine) (Heparin) 5,000 unit SQ Q12 [facility] Last Admin: 05/17/19 09:31 Dose: 5,000 unit Documented by: Hydralazine HCl (Apresoline) 10 mg IV Q4-6HP PRN PRN Reason: Hypertension Last Admin: 05/17/19 09:30 Dose: 10 mg Documented by: Magnesium Sulfate (Magnesium Sulfate) 2 gm in 50 mls @ 50 mls/hr IV UD PRN PRN Reason: MG = or < 1.7 Last Admin: 05/17/19 08:02 Dose: 50 mls/hr Documented by: Insulin Human Lispro (Humalog) 0 unit SQ ACHS [facility]; Protocol Last Admin: 05/17/19 08:36 Dose: Not Given Documented by: Iron Carb/Multivit/[facility]eting [facility]/Folic Acid (Multivitamin W/Minerals) 1 tab PO DAILY [facility] Levothyroxine Sodium (Synthroid) 25 mcg PO QAMAC [facility] Last Admin: 05/17/19 09:29 Dose: 25 mcg Documented by: Magnesium Hydroxide (Milk Of Magnesia) 15 ml PO DAILYP PRN PRN Reason: Constipation Melatonin (Melatonin 3mg Tablet) 3 mg PO HS [facility] Last Admin: 05/16/19 20:23 Dose: 3 mg Documented by: Meperidine HCl (Demerol) 25 - 37.5 mg IV Q2HP PRN PRN Reason: PAIN LEVEL > 6 Last Admin: 05/17/19 02:48 Dose: 25 mg Documented by: Metoclopramide HCl (Reglan) 10 mg IV Q6 [facility] Last Admin: 05/17/19 05:56 Dose: 10 mg Documented by: Metoprolol Tartrate (Lopressor) 5 mg IV Q2HP PRN PRN Reason: Tachyarrhythmias HR>110 Metoprolol Tartrate (Lopressor) 12.5 mg PO BID [facility] Last Admin: 05/17/19 09:29 Dose: 12.5 mg Documented by: Naproxen (Naprosyn) 1 - 2 mg PO Q12HP PRN PRN Reason: Pain Ondansetron HCl (Zofran) 4 mg IV Q4-6HP PRN PRN Reason: Nausea And Vomiting [facility] Last Admin: 05/17/19 08:12 Dose: 40 mg Documented by: Mirabegron [ Myrbetriq] 25 Mg Tablet 1 dose PO DAILY [facility] Aspirin/Acetaminophen/Caffeine [Excedrin Migraine] Tablet 1 dose PO DAILYP PRN PRN Reason: Pain Potassium Chloride (Kdur) 10 meq PO QAC [facility] Potassium/Phosphorus/Sodium (Neutra Phos) 2 packet PO BID [facility] Last Admin: 05/17/19 09:49 Dose: 2 packet Documented by: Promethazine HCl (Phenergan) 6.25 mg IV Q4HP PRN PRN Reason: Nausea And Vomiting Last Admin: 05/14/19 20:57 Dose: 6.25 mg Documented by: Sodium Chloride (Saline Flush) 10 ml IV UD PRN PRN Reason: protocol Sodium Chloride (Saline Flush) 10 ml IV Q12 [facility] Last Admin: 05/17/19 09:31 Dose: 10 ml Documented by: Sumatriptan Succinate (Imitrex) 50 mg PO Q2-4HP PRN PRN Reason: migraine headache Medical - PN: A/P - Time Spent With Patient Total time spent is greater than 50% in coordination of care (as documented) at patient's floor/unit and/or counseling patient: 15 - 24 minutes (1) Sepsis Status: Acute Assessment and plan: * Acute sigmoid diverticulitis with perisigmoid abscess-s/p Left colectomy w/colostomy & hartmans pouch (05/09) -Wound Cx's growing Klebsiella & Strep intermedius. Continue Rocephin. 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 Clinically resolved. White count normalized * Pain management -well-controlled Hospitalist consult * Neuropathy -continue gabapentin/amitriptyline * History of migraine no acute flare * Hypothyroidism continue thyroxine * MAT resolved * Full code * Prophylaxis heparin Plan * Discharge planning per surgery * No further recommendations hospice service Current Visit: Yes Medical - PN: Qual - VTE Deep Vein Thrombosis/Pulmonary Embolism Present on Admission: No
--- NOTE | 2019-05-17 11:27 | Discharge Summary ---
Providers - Providers Patient information: Note initiated : 05/17/19 at 11:22 am Service Date, if different from initiated Date: [] Patient: Melody Dong 83 y/o F admitted on 05/08/19 for Left Lower Abd Pain. Chief Complaint: [] Date of admission: 05/08/19 Discharge date: 05/17/19 Attending physician: SHAWNEE López;GENERAL SURGERY Hospitalization Hospital Course: 83-year-old female with history of severe left lower quadrant pain and suprapubic pain for over 4 months. She had progressive change in bowel habits with worsening constipation. Constipation did not respond to chronic laxative use. She had increasing abdominal distention with nausea progressive pain and weakness. She had at least a 20 pound weight loss. On the day of admission she was seen in the emergency room and a CT of the abdomen and pelvis showed evidence of inflammation of the sigmoid colon with abscess formation measuring 9 cm and 5 cm. She had white blood count of 18,900. She had evidence of clini judson sepsis and was admitted. Patient was taken to the operating room on 09 May and underwent segmental left colectomy with colostomy and Suarez's pouch. She also had total abdominal hysterectomy with bilateral salpingo- oophorectomy and drainage of pelvic abscess. Because of severe inflammation in the total pelvis and multiple loops of bowel she had a 500 cc blood loss. She had been transfused 2 units of packed red cells preoperatively and was transfused 2 units intraoperatively. Her postprocedural hemoglobin was 13. Patient made gradual improvement daily. Cultures on the abscess grew out Streptococcus intermedius, Klebsiella pneumonia, lactobacillus acidophilus. She was treated with antibiotics based on sensitivity. She had delayed emptying of her stoma but by 15 May she had good stoma function and her diet was advanced. She is presently tolerating a soft diet without difficulty. She developed a stage II sacral decubitus which is inappropriately treated with Mepi dilshad border. Her white count has returned to normal. Patient is clinically stable but is very weak and will need continued physical and occupational therapy. She will also need to have a colostomy teaching and assistance as well as treatment of her decubitus ulcer. She is therefore transferred to shelter facility for continued aggressive care. Discharge diagnosis: diverticulitis with perforation and abscess Secondary discharge diagnosis: Uterine abscess and septic peritonitis left tube and ovary Left pelvic abscess Severe anemia Sacral decubitus stage II Reason for admission: chronic abdominal pain, progressive colonic obstruction, sepsis Procedures: Segmental left colectomy with colostomy and Suarez's pouch Total abdominal hysterectomy and bilateral salpingo-oophorectomy Drainage of pelvic abscess Pertinent studies/significant findings: CT of abdomen and pelvis with IV contrast Complications: None Exam Temp Pulse Resp BP Pulse Ox 97.6 F 80 16 153/72 90 05/17/19 07:36 05/17/19 04:07 05/17/19 07:36 05/17/19 07:36 05/17/19 07:36 - General physical appearance no distress, moderate pain, chronically ill - Eyes PERRL, normal ocular movement - ENT normal pinna, normal nares, normal mucosa, no hearing loss, no congestion - Head Head exam IM: Present: atraumatic, normocephalic - Neck no masses, no bruits, trachea midline, no lymphadenopathy, no venous distension - Cardiovascular Cardiovascular exam IM: Present: normal rate and rhythm - Respiratory normal expansion, normal respiratory effort, clear to percussion, clear to auscultation - Abdomen Abdomen: Present: soft, tender (tender incision which is healing well; functioning stoma left lower quadrant; AMARILYS drain right lower quadrant with serous drainage), bowel sounds Hernia: Present: none - Genitourinary Present: normal external genitalia - Integumentary Present: no rash, no growths, no abnormal pigmentation, other (stage II sacral decubitus) - Neurologic Present: normal coordination, normal sensation - Musculoskeletal Present: normal posture, other ( poor gait and stance) - Psychiatric Present: oriented to time, oriented to person, oriented to place, speech is normal, memory intact Discharge Plan - Patient/Caregiver Discharge Instructions Activity: as per physical therapy, increase activity as tolerated Diet: Regular Diet Additional Instructions: Discharge Instructions: Follow GI soft diet as tolerated. Follow up with Dr. Cuellar in 1 week. Contact the office on Sunday, 05/19 to schedule. [phone]. Patient has new ostomy but has been too weak to do the hands on learning very much, needs continued encouragement and support. Patient ostomy supplies currently being used is [place] [id number], 70 mm, 2 3/4 inch. 3 pouches are being sent for the weekend. Leave midline dressing intact until follow-up appointment. You may change if needed to change ostomy pouch or if soiled. You may shower. Empty AMARILYS drain once or twice daily. OT and PT at SNF. Return to ER for fever, chills, nausea and/or vomiting, swelling, redness, signs of infection, shortness of breath, chest pain, or other acute symptom. Prescriptions: Neutra Phos 2 packet PO BID 4 Days #8 packet Prescription Printed HYDROcodone/APAP 5/325MG [[place] 5-325Mg] 1 tab PO Q4HP PRN #18 tab PRN Reason: Pain Prescription Printed Other Amb Orders: OT Discharge Order Location: None Selected Physical Therapy at Discharge - General Location: None Selected - Follow up Plan Follow up with: Martin Stokes DO [Primary Care Provider] - (Call office on Sunday to schedule a hospital follow-up appointment. ) Shawnee Cuellar MD [Physician] - (Follow up with Dr. Cuellar in 2 weeks. Contact the office on Sunday, 05/19 to schedule.) Disposition: Xfer SNF Care Plan Goals: This discharge packet is provided to you to help keep you informed about your care. We want to ensure you get everything you need when you go home. You will also be receiving a call from us in a few days to follow up with you and see how you are doing since your discharge. This gives us a chance to listen to any concerns you maybe experiencing since you were discharged or any additional n eeds you may have, as well as providing us feedback on your care experience. We strive to always provide excellent care and thank you for your feedback and for choosing [facility]. Prognosis: Fair Rehab Potential: Fair I certify that the patient requires SNF services.: Yes Overall status at discharge: patient is progressing back to baseline Pending Studies Resuscitation Status Full Code Diet GI Soft/Transitional Start SunMay 16 1245 Acetaminophen (Tylenol) 650 mg PO Q4-6HP PRN PRN Reason: PAIN/FEVER > 101 Last Admin: 05/17/19 09:32 Dose: 650 mg Documented by: [email or web address] Amitriptyline HCl (Elavil) 50 mg PO HS [facility] Last Admin: 05/16/19 20:23 Dose: 50 mg Documented by: Admin: 05/15/19 21:27 Dose: 50 mg Documented by: Admin: 05/14/19 21:52 Dose: 50 mg Documented by: DARION Cephalexin HCl (Keflex) 500 mg PO QID [facility]; Protocol Last Admin: 05/17/19 09:31 Dose: 500 mg Documented by: Admin: 05/16/19 20:23 Dose: 500 mg Documented by: Admin: 05/16/19 17:43 Dose: 500 mg Documented by: Admin: 05/16/19 13:58 Dose: 500 mg Documented by: KATIE Diagnostic Test (Pha) (Accu-Chek) 1 each FS ACHS [facility] Last Admin: 05/17/19 08:36 Dose: 1 each Documented by: Admin: 05/16/19 20:23 Dose: 1 each Documented by: Admin: 05/16/19 17:41 Dose: 1 each Documented by: Admin: 05/16/19 11:06 Dose: 1 each Documented by: Admin: 05/16/19 07:21 Dose: 1 each Documented by: Admin: 05/15/19 21:27 Dose: 1 each Documented by: Admin: 05/15/19 17:27 Dose: 1 each Documented by: Admin: 05/15/19 11:17 Dose: 1 each Documented by: Admin: 05/15/19 08:01 Dose: 1 each Documented by: Admin: 05/14/19 20:57 Dose: 1 each Documented by: DARION Diphenhydramine HCl (Benadryl) 25 mg IV HSP PRN PRN Reason: Allergic Symptoms/insomnia Last Admin: 05/15/19 23:09 Dose: 25 mg Documented by: DARION Gabapentin (Neurontin) 300 mg PO HS [facility] Last Admin: 05/16/19 20:23 Dose: 300 mg Documented by: Admin: 05/15/19 21:29 Dose: 300 mg Documented by: Admin: 05/14/19 21:52 Dose: 300 mg Documented by: DARION Heparin Sodium (Porcine) (Heparin) 5,000 unit SQ Q12 [facility] Last Admin: 05/17/19 09:31 Dose: 5,000 unit Documented by: Admin: 05/16/19 20:23 Dose: 5,000 unit Documented by: Admin: 05/16/19 10:06 Dose: 5,000 unit Documented by: Admin: 05/15/19 21:28 Dose: 5,000 unit Documented by: Admin: 05/15/19 10:26 Dose: 5,000 unit Documented by: Admin: 05/14/19 21:51 Dose: 5,000 unit Documented by: DARION Hydralazine HCl (Apresoline) 10 mg IV Q4-6HP PRN PRN Reason: Hypertension Last Admin: 05/17/19 09:30 Dose: 10 mg Documented by: LISA Magnesium Sulfate (Magnesium Sulfate) 2 gm in 50 mls @ 50 mls/hr IV UD PRN PRN Reason: MG = or < 1.7 Last Admin: 05/17/19 08:02 Dose: 50 mls/hr Documented by: Infusion: 05/16/19 11:05 Dose: 0 mls/hr Documented by: Admin: 05/16/19 10:05 Dose: 50 mls/hr Documented by: KATIE Insulin Human Lispro (Humalog) 0 unit SQ ACHS [facility]; Protocol Last Admin: 05/17/19 08:36 Dose: Not Given Documented by: Admin: 05/16/19 20:24 Dose: Not Given Documented by: Admin: 05/16/19 17:41 Dose: Not Given Documented by: Admin: 05/16/19 11:07 Dose: Not Given Documented by: Admin: 05/16/19 07:23 Dose: Not Given Documented by: Admin: 05/15/19 21:28 Dose: Not Given Documented by: Admin: 05/15/19 17:27 Dose: Not Given Documented by: Admin: 05/15/19 11:17 Dose: Not Given Documented by: Admin: 05/15/19 08:02 Dose: Not Given Documented by: Admin: 05/14/19 21:50 Dose: 1 unit Documented by: DARION Levothyroxine Sodium (Synthroid) 25 mcg PO QAMAC [facility] Last Admin: 05/17/19 09:29 Dose: 25 mcg Documented by: LISA Melatonin (Melatonin 3mg Tablet) 3 mg PO HS [facility] Last Admin: 05/16/19 20:23 Dose: 3 mg Documented by: Admin: 05/15/19 21:29 Dose: 3 mg Documented by: Admin: 05/14/19 21:52 Dose: 3 mg Documented by: DARION Meperidine HCl (Demerol) 25 - 37.5 mg IV Q2HP PRN PRN Reason: PAIN LEVEL > 6 Last Admin: 05/17/19 02:48 Dose: 25 mg Documented by: Admin: 05/16/19 20:10 Dose: 25 mg Documented by: Admin: 05/16/19 17:42 Dose: 25 mg Documented by: Admin: 05/16/19 10:15 Dose: 25 mg Documented by: Admin: 05/16/19 05:23 Dose: 25 mg Documented by: Admin: 05/15/19 21:30 Dose: 25 mg Documented by: Admin: 05/15/19 17:23 Dose: 25 mg Documented by: Admin: 05/15/19 07:55 Dose: 25 mg Documented by: Admin: 05/15/19 04:07 Dose: 25 mg Documented by: Admin: 05/15/19 00:29 Dose: 25 mg Documented by: Admin: 05/14/19 21:48 Dose: 25 mg Documented by: Admin: 05/14/19 19:04 Dose: 25 mg Documented by: DARION Metoclopramide HCl (Reglan) 10 mg IV Q6 [facility] Last Admin: 05/17/19 05:56 Dose: 10 mg Documented by: Admin: 05/17/19 00:23 Dose: 10 mg Documented by: Admin: 05/16/19 17:42 Dose: 10 mg Documented by: Admin: 05/16/19 12:36 Dose: 10 mg Documented by: Admin: 05/16/19 06:07 Dose: 10 mg Documented by: Admin: 05/16/19 00:53 Dose: 10 mg Documented by: Admin: 05/15/19 17:39 Dose: 10 mg Documented by: Admin: 05/15/19 13:16 Dose: 10 mg Documented by: Admin: 05/15/19 06:16 Dose: 10 mg Documented by: Admin: 05/15/19 00:29 Dose: 10 mg Documented by: Admin: 05/14/19 18:01 Dose: 10 mg Documented by: [email or web address] Metoprolol Tartrate (Lopressor) 12.5 mg PO BID [facility] Last Admin: 05/17/19 09:29 Dose: 12.5 mg Documented by: [email or web address] Admin: 05/16/19 20:23 Dose: 12.5 mg Documented by: Admin: 05/16/19 10:06 Dose: 12.5 mg Documented by: Admin: 05/15/19 21:29 Dose: 12.5 mg Documented by: Admin: 05/15/19 10:19 Dose: 12.5 mg Documented by: Admin: 05/14/19 21:52 Dose: 12.5 mg Documented by: DARION Pantoprazole Sodium (Protonix) 40 mg PO BIDAC [facility] Last Admin: 05/17/19 08:12 Dose: 40 mg Documented by: [email or web address] Admin: 05/16/19 17:43 Dose: 40 mg Documented by: KATIE Potassium/Phosphorus/Sodium (Neutra Phos) 2 packet PO BID [facility] Last Admin: 05/17/19 09:49 Dose: 2 packet Documented by: [email or web address] Promethazine HCl (Phenergan) 6.25 mg IV Q4HP PRN PRN Reason: Nausea And Vomiting Last Admin: 05/14/19 20:57 Dose: 6.25 mg Documented by: DARION Sodium Chloride (Saline Flush) 10 ml IV Q12 [facility] Last Admin: 05/17/19 09:31 Dose: 10 ml Documented by: [email or web address] Admin: 05/16/19 21:43 Dose: 10 ml Documented by: Admin: 05/16/19 10:06 Dose: 10 ml Documented by: Admin: 05/15/19 21:29 Dose: 10 ml Documented by: Admin: 05/15/19 10:24 Dose: 10 ml Documented by: Admin: 05/14/19 22:07 Dose: 10 ml Documented by: [email or web address] Shift Summary 05/17/19 03:39 Shift Summary by Evelin Atkinson Pt is A&Ox4. VSS on RA. Up with 2 assist & GB to BSC. Turning Q2H, heelzup in place. Midline incision with yajaira and Tegaderm. AMARILYS drain to RLQ. Colostomy to LLQ. Sacral mepilex in place. Denies nausea, receiving scheduled Reglan. Quad lumen central line to RIJ; drsg changed yesterday. Pt received Demerol 25 mg x2 for pain. Plan is to D/C to [facility] today @ 1000 (ostomy supplies present in room & was asked to please pass on to ensure these go with the pt on discharge). Per day shift report, dressing to abdomen to be changed prior to discharge (no official dressing order). Will update with verbal report. Initialized on 05/17/19 03:39 - END OF NOTE
[2019-05-17] MEDS ORDERED: GABAPENTIN 100 MG CAPSULE PO SCH (12:00)
[2019-05-17] MEDS ORDERED: HYDROcodone/APAP 5/325MG TABLET PO SCH (15:00)
[2019-05-17] MEDS ORDERED: CLOTRIMAZOLE CRM 1% 1 DOSE TUBE TOPICAL SCH (21:00)
[2019-05-17] MEDS ORDERED: DOCUSATE SODIUM 100 MG CAPSULE PO SCH (21:00)
[2019-05-18] MEDS ORDERED: PANTOPRAZOLE 40 MG TABLET PO SCH (07:30)
[2019-05-18] MEDS ORDERED: POTASSIUM CHLORIDE 10 MEQ TABLET PO SCH (08:00)
[2019-05-18] MEDS ORDERED: MULTIVIT,THER IRON,CA,FA & MIN 1 TABLET PO SCH (09:00)
--- NOTE | 2019-05-29 11:46 | Operative Note ---
DATE OF OPERATION: 05/09/2019 PREOPERATIVE DIAGNOSES: Diverticulitis with pelvic abscess. POSTOPERATIVE DIAGNOSES: 1. Uterine abscess. 2. 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 3. Sigmoid diverticulitis with possible infiltration from the left ovarian process. PROCEDURE: 1. Segmental left colectomy with colostomy and Jacob's pouch. 2. Total abdominal hysterectomy with bilateral salpingo-oophorectomy. 3. Drainage of pelvic abscess. SURGEON: Shawnee Cuellar M.D. ESTIMATED BLOOD LOSS: 500 mL. FINDINGS: An enlarged, boggy, inflamed uterus filled with pus and large indurated mass of the left ovary and tube with infiltration of sigmoid colon. DESCRIPTION OF PROCEDURE: Under general anesthesia, the patient's abdomen was prepped and draped in a sterile field. A lower midline incision was made. Upon entering the abdomen, the upper abdomen was uninvolved. In the pelvis, I encountered a very large, boggy uterus with suggestion of being fluid-filled. The uterus was aspirated with an 18 gauge needle and I obtained manoj pus. Further evaluation revealed the left ovary and tube to be enlarged and inflamed with necrosis of the distal segment of the ovary and tube which was adherent to the lateral pelvic wall. The inflammatory process from the tube was also densely adherent along the mesenteric border of the sigmoid colon, and there appeared to be infection in the sigmoid colon with thickening of the wall and extension to the process in the left lower quadrant with abscess formation. The right tube was normal and the right ovary was very atrophic. After evaluation, it was decided that patient would need to have segmental colectomy of the sigmoid colon with a TAHBSO and drainage of the abscess. A Bookwalter retractor was placed. The colon was mobilized along its lateral attachments starting at the mid-sigmoid. The sigmoid was redundant. Dissection was continued down into the deep pelvis with the attachment to the inflammatory infiltrative process involving the tube and ovary. Using finger dissection to prevent visceral or vascular injury, I was able to separate the colon from the inflammatory process, but in doing this a large abscess was encountered. Irrigation was carried out. Cultures were taken. The colon was then mobilized down into the sacrum posteriorly. Point of transection of the sigmoid was taken about 6 cm proximal to the inflamed tissue. The colon was divided using a Contour stapler. Distally, the colon was divided above the peritoneal reflection using a Contour stapler. The mesocolon was divided using LigaSure. The large vessels were doubly clamped, divided, and tied with 2-0 silk. The colon specimen was then passed off. Further irrigation was carried out. The tube and ovary on the left side was clamped at the junction with the uterus. It was divided with the distal end being tied with 2-0 silk. The uterus was then grasped with a tenaculum and placed on stretch. The round ligaments were doubly clamped, divided, and controlled with 0 Monocryl. Anterior bladder flap was developed down to the cervix, taking care to remove the bladder from the lower uterine segment. Once this was done, the infundibulopelvic ligament was skeletonized, and the ovarian vessels were clamped and divided. They were controlled with ties of 0 Vicryl. The uterine vessels were then sequentially clamped on each side, divided, and controlled with Ivana sutures of 0 Vicryl. This was done sequentially down to the cervicovaginal junction. Curved Ivana was then used to clamp the apex of the vagina sequentially and the uterus and cervix were excised. The uterus was inspected and appeared to have a large abscess cavity. It was passed off as a specimen. Next, dissection of the residual left ovary and tube was carried out. They had to be bluntly from the iliac vessels and the ureter. The ureter was not injured. It was followed down into the deep pelvis and was totally intact. The vessels were clamped and divided, and the specimen was passed off as a separate specimen. Copious irrigation was carried out. Gloves were changed. AMARILYS drain was placed in the depth of the pelvis. The vaginal apex was loosely closed with the anticipation that she would have some purulent drainage and may have some cuff cellulitis, so the drain was placed directly over the cuff. Reperitonealization was not carried out for this reason. Sponge, needle, instrument and blade counts were verified as correct. Next, an opening for the stoma was made in the left lower quadrant. The end of the colon was brought out through this opening, and the wall of the sigmoid was sutured to the peritoneum circumferentially with interrupted 3-0 silk. The mesocolon was sutured laterally to the peritoneum to prevent herniation of bowel and reduce the potential for obstruction. Next, a repeat count was carried out. A new setup was placed. The fascia and peritoneum were closed with running #1 Prolene. The subcutaneous tissue was irrigated with bacitracin solution and closed with 2-0 Monocryl. The skin was closed with yajaira. Drain was secured with 2-0 nylon. Tegaderm dressing was placed. The patient tolerated the procedure well. She was awakened uneventfully, extubated, and transferred to the postanesthetic care unit in satisfactory condition. LCS:sheri Job ID: [id number] Doc ID: [id number] Shawnee Cuellar M.D.
== END 2019-05-17 10:25 | DRG 853 ==
LOC: ED 11:13 → ICU 18:20 → MEDSUR 05-14 18:25
PROVIDERS: ADMIT Internal Medicine; ATTEND Family Medicine Adult Medicine